=== PATIENT | male | born 1985 | race Caucasian/White ===

== ENCOUNTER 2016-07-29 09:28 | Emergency (ER) | payer MEDICAID ==
[2016-07-29 10:18] LABS: Hematocrit 45 % (42-52); Mean Corpuscular HGB Conc 34 g/dl (31-36); Mean Corpuscular Hemoglobin 31 pg (27-31); Mean Corpuscular Volume 92 fL (80-94); Mean Platelet Volume 9 um3 (7.4-10.4); Red Blood Count 4.87 10^6/ul (4.0-5.4); Red Cell Distribution Width 13 % (10.5-15); White Blood Count 5.3 10^3/ul (3.5-10.8)
--- NOTE | 2016-07-29 10:21 | RAD ---
Indication: Seizures. Single frontal view of the chest performed at 1000 hours was reviewed. No prior study is available for comparison. No mediastinal shift is noted. Heart is of normal size and configuration. Lung gomez appear clear. IMPRESSION: NO ACTIVE CARDIOPULMONARY DISEASE IS NOTED.
[2016-07-29 10:28] LABS: Anion Gap 4 mmol/L (2-11); Blood Urea Nitrogen 12 mg/dL (6-24); CO2 Carbon Dioxide 32 mmol/L (22-32); Chloride 103 mmol/L (101-111); Glucose 69 mg/dL (70-100); Potassium 3.5 mmol/L (3.5-5.0); Sodium 139 mmol/L (133-145)
[2016-07-29 10:29] LABS: ALT 19 U/L (7-52); AST 12 U/L (13-39); Albumin 4.4 g/dL (3.2-5.2); Alkaline Phosphatase 83 U/L (34-104); BUN/Creatinine Ratio 20.7 (8-20); Calcium 9.5 mg/dL (8.6-10.3); EGFR African American 210.2 (>60); EGFR Non-African American 163.4 (>60); Globulin 3.2 g/dL (2-4); Total Protein 7.6 g/dL (6.4-8.9)
[2016-07-29 10:48] LABS: Urine Bilirubin Negative (Negative); Urine Glucose Negative (Negative); Urine Nitrite Negative (Negative)
[2016-07-29 11:13] LABS: Valproic Acid < 13.0 mcg/mL (50-100)
[2016-07-29 12:09] VITALS: BP 106/71
--- NOTE | 2016-07-29 12:31 | ED ---
Rojelio Moore Billy, scribed for Isaiah Novak MD on 07/29/16 at 1023 . Neurological HPI - HPI Summary HPI Summary: Patient is a 30 year-old male with a history of MR and CP coming to [facility] for evaluation of one witnessed seizure today. History obtained from the aide. She states that she witnessed him having a focal seizure of the right shoulder at approximately 0800, which she states is quite uncommon for him. After 5 minutes , he was given 1x dose of clonazepam, without significant improvement. After another 5 minutes, he was given another dose, again without significant improvement. The seizure continued for at least another 20 minutes, at which point the aide called 911 per protocol. Aide reports that the seizure lasted for at least 30 minutes, exact time not measured. She also states that throughout the episode, the patient was alert and acting as usual. 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 Patient takes trileptal and depakote for management of his seizures. - History of Current Complaint Chief Complaint: EDSeizure Stated Complaint: SEIZURE Time Seen by Provider: 07/29/16 09:45 Hx Obtained From: Family/Hearing Aid Repair Technician Hx From Patient Unobtainable Due To: Other - CP, MR Onset/Duration: Sudden Onset Timing: Constant Seizure Severity: Moderate Number of Seizures: 1 Neurological Deficit Location: RUE Aggravating: Unknown Alleviating: Unknown - Allergy/Home Medications Allergies/Adverse Reactions: Allergies Allergy/AdvReac Type Severity Reaction Status Date / Time Topiramate [From Topamax] Allergy Severe GI UPSET, Verified 12/09/15 16:37 WEIGHT LOSS BANDAIDS Allergy Severe Blisters Uncoded 12/09/15 16:37 PMH/Surg Hx/FS Hx/Imm Hx Endocrine/Hematology History: Reports: Hx Thyroid Disease - HYPO GI History: Reports: Other GI Disorders - constipation Neurological History: Reports: Hx Seizures, Other Neuro Impairments/Disorders - Cerebral palsy, mental retardation - Surgical History Surgery Procedure, Year, and Place: HEAD, FEET, 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 Infectious Disease History: No Infectious Disease History: Denies: Traveled Outside the [place] in Last 30 Days - Family History Known Family History: Positive: Unknown Family History: Patient unable to provide due to MR and CP, aide unable to provide history, and also not found on records. - Social History Alcohol Use: None Hx Substance Use: No Substance Use Type: Reports: None Hx Tobacco Use: No Smoking Status (MU): Never Smoked Tobacco Review of Systems Negative: Fever Neurological: Other - MR, CP; seizure today All Other Systems Reviewed And Are Negative: No - Comments Additional Review of Systems Comments: Patient is unable to provide a complete ROS secondary to MR and CP. Physical Exam - Summary Physical Exam Summary: VITAL SIGNS: Reviewed. GENERAL: Patient is a well developed and nourished male who is lying comfortable in the stretcher. Patient is not in any acute respiratory distress. He is nonverbal secondary to MR and CP. HEAD AND FACE: There is a well-healed scar on the left temporal-parietal area. EYES: PERRLA, EOMI x 2. EARS: Hearing grossly intact. MOUTH: Oropharynx within normal limits. NECK: Supple, trachea is midline, no adenopathy, no JVD, no carotid bruit. CHEST: Symmetric, no tenderness at palpation LUNGS: Clear to auscultation bilaterally. No wheezing or crackles. CVS: Regular rate and rhythm, S1 and S2 present, no murmurs or gallops appreciated. ABDOMEN: Soft, non-tender. Bowel sounds are normal. No abdominal abnormal pulsations. EXTREMITIES: Full ROM in all major joints, no edema, no cyanosis or clubbing. 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 NEURO: Alert but not oriented. No acute focal neurological deficits. Patient is nonverbal at baseline. No active seizures. SKIN: Dry and warm Triage Information Reviewed: Yes Vital Signs On Initial Exam: Initial Vitals Temp Pulse Resp BP Pulse Ox 98.6 F 78 14 110/80 98 07/29/16 09:38 07/29/16 09:38 07/29/16 09:38 07/29/16 09:38 07/29/16 09:38 Vital Signs Reviewed: Yes Completion Of Physical Exam Limited Due To: Other - MR, CP - [place] Coma Scale Coma Scale Total: 12 Diagnostics - Vital Signs Vital Signs Temp Pulse Resp BP Pulse Ox 07/29/16 10:03 98 07/29/16 10:00 78 20 99 07/29/16 09:45 106/68 07/29/16 09:38 98.6 F 78 14 110/80 98 - Laboratory Lab Results: Lab Results 04/05/17 04/05/17 04/05/17 Range/Units 10:00 10:00 10:00 WBC 5.3 (3.5-10.8) 10^3/ul RBC 4.87 (4.0-5.4) 10^6/ul Hgb 15.0 (14.0-18.0) g/dl Hct 45 (42-52) % MCV 92 (80-94) fL MCH 31 (27-31) pg MCHC 34 (31-36) g/dl RDW 13 (10.5-15) % Plt Count 231 (150-450) 10^3/ul MPV 9 (7.4-10.4) um3 Neut % (Auto) 59.0 (38-83) % Lymph % (Auto) 29.2 (25-47) % Sawyer % (Auto) 10.4 H (1-9) % Eos % (Auto) 0.5 (0-6) % Baso % (Auto) 0.9 (0-2) % Absolute Neuts (auto) 3.1 (1.5-7.7) 10^3/ul Absolute Lymphs (auto) 1.5 (1.0-4.8) 10^3/ul Absolute Monos (auto) 0.5 (0-0.8) 10^3/ul Absolute Eos (auto) 0 (0-0.6) 10^3/ul Absolute Basos (auto) 0 (0-0.2) 10^3/ul Absolute Nucleated RBC 0 10^3/ul Nucleated RBC % 0.1 INR (Anticoag Therapy) 0.93 (0.89-1.11) Sodium 139 (133-145) mmol/L Potassium 3.5 (3.5-5.0) mmol/L Chloride 103 (101-111) mmol/L Carbon Dioxide 32 (22-32) mmol/L Anion Gap 4 (2-11) mmol/L BUN 12 (6-24) mg/dL Creatinine 0.58 L (0.67-1.17) mg/dL Est GFR ( Amer) 210.2 (>60) Est GFR (Non-Af Amer) 163.4 (>60) BUN/Creatinine Ratio 20.7 H (8-20) Glucose 69 L (70-100) mg/dL Lactic Acid (0.5-2.0) mmol/L Calcium 9.5 (8.6-10.3) mg/dL Magnesium 2.0 (1.9-2.7) mg/dL Total Bilirubin 0.30 (0.2-1.0) mg/dL AST 12 L (13-39) U/L ALT 19 (7-52) U/L Alkaline Phosphatase 83 (34-104) U/L Total Protein 7.6 (6.4-8.9) g/dL Albumin 4.4 (3.2-5.2) g/dL Globulin 3.2 (2-4) g/dL Albumin/Globulin Ratio 1.4 (1-3) Urine Color Urine Appearance Urine pH (5-9) Ur Specific [place] (1.010-1.030) Urine Protein (Negative) Urine Ketones (Negative) Urine Blood (Negative) Urine Nitrate (Negative) Urine Bilirubin (Negative) Urine Urobilinogen (Negative) Ur Leukocyte Esterase (Negative) Urine Glucose (Negative) Urine Ascorbic Acid (Negative) Valproic Acid < 13.0 L (50-100) mcg/mL 07/29/16 07/29/16 Range/Units 10:00 10:34 WBC (3.5-10.8) 10^3/ul RBC (4.0-5.4) 10^6/ul Hgb (14.0-18.0) g/dl Hct (42-52) % MCV (80-94) fL MCH (27-31) pg MCHC (31-36) g/dl RDW (10.5-15) % Plt Count (150-450) 10^3/ul MPV (7.4-10.4) um3 Neut % (Auto) (38-83) % Lymph % (Auto) (25-47) % Sawyer % (Auto) (1-9) % Eos % (Auto) (0-6) % Baso % (Auto) (0-2) % Absolute Neuts (auto) (1.5-7.7) 10^3/ul Absolute Lymphs (auto) (1.0-4.8) 10^3/ul Absolute Monos (auto) (0-0.8) 10^3/ul Absolute Eos (auto) (0-0.6) 10^3/ul Absolute Basos (auto) (0-0.2) 10^3/ul Absolute Nucleated RBC 10^3/ul Nucleated RBC % INR (Anticoag Therapy) (0.89-1.11) Sodium (133-145) mmol/L Potassium (3.5-5.0) mmol/L Chloride (101-111) mmol/L Carbon Dioxide (22-32) mmol/L Anion Gap (2-11) mmol/L BUN (6-24) mg/dL Creatinine (0.67-1.17) mg/dL Est GFR ( Amer) (>60) Est GFR (Non-Af Amer) (>60) BUN/Creatinine Ratio (8-20) Glucose (70-100) mg/dL Lactic Acid 1.2 (0.5-2.0) mmol/L Calcium (8.6-10.3) mg/dL Magnesium (1.9-2.7) mg/dL Total Bilirubin (0.2-1.0) mg/dL AST (13-39) U/L ALT (7-52) U/L Alkaline Phosphatase (34-104) U/L Total Protein (6.4-8.9) g/dL Albumin (3.2-5.2) g/dL Globulin (2-4) g/dL Albumin/Globulin Ratio (1-3) Urine Color Yellow Urine Appearance Cloudy Urine pH 8.0 (5-9) Ur Specific [place] 1.018 (1.010-1.030) Urine Protein Negative (Negative) Urine Ketones Negative (Negative) Urine Blood Negative (Negative) Urine Nitrate Negative (Negative) Urine Bilirubin Negative (Negative) Urine Urobilinogen Negative (Negative) Ur Leukocyte Esterase Negative (Negative) Urine Glucose Negative (Negative) Urine Ascorbic Acid * H (Negative) Valproic Acid (50-100) mcg/mL Result Diagrams: 07/29/16 10:00 07/29/16 10:00 Lab Statement: Any lab studies that have been ordered have been reviewed, and results considered in the medical decision making process. - Radiology CXR Xray Interpretation: No Acute Changes Radiology Interpretation Completed By: Radiologist Course/Dx - Course Assessment/Plan: Patient is a 30 year-old male with a history of MR and CP coming to [facility] for evaluation of one witnessed seizure today. History obtained from the aide. She states that she witnessed him having a focal seizure of the right shoulder at approximately 0800, which she states is quite uncommon for him. After 5 minutes, he was given 1x dose of clonazepam, without significant improvement. After another 5 minutes, he was given another dose, again without significant improvement. The seizure continued for at least another 20 minutes, at which point the aide called 911 per protocol. Aide reports that the seizure lasted for at least 30 minutes, exact time not measured. She also states that throughout the episode, the patient was alert and acting as usual. 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 Patient takes trileptal and depakote for management of his seizures. Bloodwork WNL except for valproic acid which is <13. However, I discussed the case with Dr. Rodgers and he states that he patient is not taking valproic acid. The patient is only taking Trileptal and zonisamide. He requested that if the patient is at his baseline, he can be discharged home to follow up with Dr. Duran. We will also send levels for zonisamide. Since the patient is back to his baseline, hemodynamically stable, he will be discharged home with the caregiver. They were instructed to return to the ED with any additional seizure episodes or any other symptoms. The patients caregiver understands and agrees. - Differential Dx Differential Diagnoses Neuro: Positive: Dysrhythmia, Seizure Disorder, Transient Ischemic Attack - Diagnoses Provider Diagnoses: Seizure disorder - Physician Notifications Discussed Care of Patient With: Dr. Rodgers (neurology) @ 1123: recommends discharge. Discharge - Discharge Plan Condition: Stable Disposition: HOME Patient Education Materials: Recurrent Seizures in Adults (ED) Referrals: Tatiana Bellamy MD [Primary Care Provider] - Deisy Duran MD [Medical Doctor] - The documentation as recorded by the Rojelio bridges Billy accurately reflects the service I personally performed and the decisions made by , Isaiah Novak MD.
== END 2016-07-29 12:08 | disposition home or self-care (01) ==
LOC: ED 09:28
DX: G40.909 Epilepsy, unspecified, not intractable, without status epilepticus (principal)
CPT/HCPCS: 36415; 71010; 80053; 80164; 80203; 81003; 83605; 83735; 85025; 85610; 99283

== ENCOUNTER 2017-04-12 15:51 | Emergency (ER) | payer MEDICAID ==
[2017-04-12 17:49] VITALS: BP 115/77
--- NOTE | 2017-04-12 19:26 | ED ---
Throat Pain/Nasal Congestion - HPI Summary HPI Summary: Pt here w/ URI sx x 1 week. Nasal congestion, cough, appears tired. Lives in with 24 hour care services. Has been receiving guiaifenesin and acetaminophen. Sleeping, breathing and eating well. No reports of vomiting, diarrhea or rash. Still urinating and no fever or chills. Here for evaluation as he could not get in to see PCP this week. H/o sinus infections. - History of Current Complaint Chief Complaint: UCRespiratory Time Seen by Provider: 04/12/17 18:29 Hx Obtained From: Family/Filter Changing Technician - aid from residence - Allergies/Home Medications Allergies/Adverse Reactions: Allergies Allergy/AdvReac Type Severity Reaction Status Date / Time Topiramate [From Topamax] Allergy Severe GI UPSET, Verified 04/12/17 17:50 WEIGHT LOSS BANDAIDS Allergy Severe Blisters Uncoded 04/12/17 17:50 Home Medications: Home Medications Carbamide Peroxide 6.5% OTIC* [DEBROX 6.5% Otic*] 1 drop .SEE ORDER DAILY PRN [History Confirmed 04/12/17] Sodium Phosphate ADULT ENEMA* [Fleet Enema*] 1 enema MA DAILY PRN 04/12/17 [ History Confirmed 04/12/17] Zonisamide(NF) [Zonegran(NF)] 300 mg PO DAILY 04/12/17 [History Confirmed ] clonazePAM TAB(*) [Klonopin TAB(*)] 1 mg PO DAILY PRN 04/12/17 [History Confirmed 04/12/17] PMH/Surg Hx/FS Hx/Imm Hx Previously Healthy: Yes Endocrine/Hematology History: Reports: Hx Thyroid Disease - HYPO Respiratory History: Reports: Other Respiratory Problems/Disorders - sinusitis Denies: Hx Asthma, Hx Chronic Obstructive Pulmonary Disease (COPD), Hx Pneumonia GI History: Reports: Other GI Disorders - constipation Neurological History: Reports: Hx Seizures, Other Neuro Impairments/Disorders - Cerebral palsy, mental retardation - Surgical History Surgery Procedure, Year, and Place: HEAD, FEET, 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 Infectious Disease History: No Infectious Disease History: Denies: Traveled Outside the [place] in Last 30 Days - Family History Known Family History: Positive: Unknown Family History: Patient unable to provide due to MR and CP, aide unable to provide history, and also not found on records. - Social History Occupation: Disabled Lives: Jail Alcohol Use: None Hx Substance Use: No Substance Use Type: Reports: None Hx Tobacco Use: No Smoking Status (MU): Never Smoked Tobacco Review of Systems - ROS Summary Review of Systems Summary: Level 5 caveat - pt has severe developmental delays and is unable to verbalize anything other than making sounds Positive: Fatigue. Negative: Fever, Chills Negative: Drainage, Erythema Positive: Nasal Discharge Positive: Cough. Negative: Shortness Of Breath Negative: Vomiting, Diarrhea, Nausea - eating well Positive: see HPI Negative: Rash Negative: Weakness Psychological: Normal All Other Systems Reviewed And Are Negative: Yes Physical Exam - Summary Physical Exam Summary: Level 5 caveat - pt has baseline contractures and is not cooperative with most of exam Triage Information Reviewed: Yes Vital Signs On Initial Exam: Initial Vitals Temp Pulse Resp BP Pulse Ox 98.8 F 72 18 115/77 90 04/12/17 17:44 04/12/17 17:44 04/12/17 17:44 04/12/17 17:44 04/12/17 17:44 Vital Signs Reviewed: Yes Appearance: Positive: No Pain Distress, Well-Nourished Skin: Positive: Warm, Dry - no rash Eyes: Positive: Conjunctiva Clear. Negative: Conjunctiva Inflammed, Discharge ENT: Positive: Pharynx normal - mucosa moist - pt drooling which aid reports is baseline for him, Nasal drainage - copious nasal drainage. Negative: Muffled voice - assessed when he makes sounds - does not sounds like impedements are present Neck: Positive: No Lymphadenopathy, Other: - pt w/ torticollis to the Left Respiratory/Lung Sounds: Positive: Clear to Auscultation, Breath Sounds Present , Other - coughs once - dry. Negative: Rales, Rhonchi, Stridor, Wheezes Cardiovascular: Positive: Normal, RRR, S1, S2. Negative: Murmur, Rub Abdomen Description: Positive: Nontender, Soft Bowel Sounds: Positive: Present Musculoskeletal: Positive: Other Diagnostics - Vital Signs Vital Signs Temp Pulse Resp BP Pulse Ox 04/12/17 17:44 98.8 F 72 18 115/77 90 - Laboratory Diagnostic Studies Comment: CXR w/ difficulty reading d/t pt's position. Lab Statement: Any lab studies that have been ordered have been reviewed, and results considered in the medical decision making process. EENT Course/Dx - Course Course Of Treatment: Pt presents w/ 1 week of URI sx. No fever, chills, N/V/D, rash or syncope. He appears to have a sinus infection and has had relief with moxifloxacin in the past. A chest XR was ordered to also assess his pulmonary anatomy however was not a full image d/t contractures. It was decided that since moxifloxacin is an excellent antibiotic for both sinus infections and pneumonia, pt may be d/c'd w/ this and close f/u with PCP for worsening of sx. He may also go to ED if danger s/sx present. Aid agrees w/ plan. does not carry moxifloxacin so levaquin was ordered for tonight only. Remaining moxifloxacin was sent to pharmacy. - Diagnoses Provider Diagnoses: Sinusitis Discharge - Discharge Plan Condition: Stable Disposition: HOME Prescriptions: Moxifloxacin HCl 400 mg PO DAILY #9 tab Patient Education Materials: Sinusitis (ED) Forms: *School Release Referrals: Tatiana Bellamy MD [Primary Care Provider] - Additional Instructions: You appear to have a URI prolonged by sinus infection. Continue supportive care and complete antibiotics as directed Follow-up with PCP in 2-3 days - call tomorrow to schedule *If patient develops fever, chills, vomiting, difficulty breathing or swallowing , go to ED
--- NOTE | 2017-04-12 19:27 | RAD ---
INDICATION: Cough COMPARISON: July 29, 2016 TECHNIQUE: PA and lateral views were obtained. This is a very limited examination due to arm positioning with contracture deformities FINDINGS: Bones/Soft Tissues: There are no acute bony findings. Cardiomediastinal: Grossly normal. Lungs: Limited evaluation due to interference from the patient's arms. The right lung is clear. The left lung is inadequately evaluated. Pleura: There are no pleural effusions. Other: None IMPRESSION: VERY LIMITED EXAMINATION DUE TO CONTRACTURE DEFORMITIES. IF THERE IS CONCERN OF A LEFT LUNG PNEUMONITIS, SUGGEST REPEAT IMAGING
[2017-04-12] MEDS ORDERED: Levofloxacin TAB* 500 MG PO ONE (19:34)
== END 2017-04-12 19:55 | disposition home or self-care (01) ==
LOC: UCEAST 15:51
DX: J32.9 Chronic sinusitis, unspecified (principal); G40.909 Epilepsy, unspecified, not intractable, without status epilepticus; G80.9 Cerebral palsy, unspecified; F79 Unspecified intellectual disabilities
CPT/HCPCS: 71010; 99212; G0463

== ENCOUNTER 2017-06-25 11:09 | Emergency (ER) | payer MEDICAID ==
[2017-06-25 12:33] LABS: ABS Basophils 0.1 10^3/ul (0-0.2); ABS Eosinophils 0.1 10^3/ul (0-0.6); ABS Lymphocytes 1.7 10^3/ul (1.0-4.8); ABS Monocytes 0.6 10^3/ul (0-0.8); ABS Neutrophils 3.3 10^3/ul (1.5-7.7); ABS Nucleated RBC 0 10^3/ul; Eosinophil % 1.4 % (0-6); Hematocrit 46 % (42-52); Hemoglobin 15.8 g/dl (14.0-18.0); Lymphocyte % 30.6 % (25-47); Mean Corpuscular HGB Conc 34 g/dl (31-36); Mean Corpuscular Hemoglobin 32 pg (27-31); Mean Corpuscular Volume 92 fL (80-94); Mean Platelet Volume 9 um3 (7.4-10.4); Nucleated Red Blood Cells % 0.1; Platelet Count 237 10^3/ul (150-450); Red Blood Count 4.99 10^6/ul (4.0-5.4); Red Cell Distribution Width 13 % (10.5-15); White Blood Count 5.7 10^3/ul (3.5-10.8)
[2017-06-25 12:44] LABS: Urine Appearance Turbid; Urine Blood Negative (Negative); Urine Color Yellow; Urine Ketones Negative (Negative); Urine Protein Negative (Negative); Urine Specific Gravity 1.016 (1.010-1.030); Urine Urobilinogen Negative (Negative)
[2017-06-25 12:45] LABS: EGFR Non-African American 176.3 (>60)
[2017-06-25 13:18] LABS: INR 0.89 (0.77-1.02)
[2017-06-25 13:35] VITALS: BP 92/76
--- NOTE | 2017-06-25 21:07 | ED ---
Hung Moore Nilda, scribed for Jessie Carrion MD on 06/25/17 at 1203 . Neurological HPI - HPI Summary HPI Summary: This patient is a 31 year old M resident of [facility] accompanied by radiology ct technologist (Priscilla) with a chief complaint of focal seizure that began at 0955 this morning and lasted between 30-60 mins. Inker gave klonopin according to protocol and seizure continued beyond the protocol, so instructions are to call 911 if the seizure doesn't resolve. Pt's radiology ct technologist states seizure resolved upon arrival of the ambulance. She notes that during patient's usual seizure, pt is still awake, responsive, and the only abnormality is that his right arm jerks. Symptoms aggravated by nothing and alleviated by spontaneous resolution. Inker denies fever, rhinorrhea, loss of appetite, and recent illness. 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 Inker states Dr. Duran is pt's neurologist. Pt is on zonisamide for seizures. LVL 5 Caveat: HPI and PE are limited due to pt's history of MR and CP. - History of Current Complaint Chief Complaint: EDSeizure Stated Complaint: SEIZURES Time Seen by Provider: 06/25/17 11:32 Hx Obtained From: Family/Inker - Inker from [facility] (Priscilla ), Medical Records - pt's notebook and [facility] records Hx From Patient Unobtainable Due To: Other - LVL 5 Caveat: HPI limited due to Hx CP and MR. Onset/Duration: Sudden Onset, Started hours ago, Resolved Timing: Constant Onset Severity: Mild Current Severity: None Seizure Severity: Mild Number of Seizures: 1 Neurological Deficit Location: RUE Pain Intensity: 0 Pain Scale Used: 0-10 Numeric Character: Other: - focal seizure RUE Seizure Character: Partial (Specify) - RUE, focal Aggravating: Nothing Alleviating: Spontanious Resolution Associated Signs and Symptoms: Positive: Seizure. Negative: Fever, Recent Illness, Change in Diet Related Hx: Trauma - Child Head Trauma, Seizure - Allergy/Home Medications Allergies/Adverse Reactions: Allergies Allergy/AdvReac Type Severity Reaction Status Date / Time MS Topiramate [From Topamax] Allergy Severe GI UPSET, Verified 04/12/17 17:50 WEIGHT LOSS BANDAIDS Allergy Severe Blisters Uncoded 04/12/17 17:50 PMH/Surg Hx/FS Hx/Imm Hx Endocrine/Hematology History: Reports: Hx Thyroid Disease - HYPO Respiratory History: Reports: Other Respiratory Problems/Disorders - sinusitis Denies: Hx Asthma, Hx Chronic Obstructive Pulmonary Disease (COPD), Hx Pneumonia GI History: Reports: Other GI Disorders - constipation Musculoskeletal History: Reports: Other Musculoskeletal History - Osteoporosis; Hemiparesis of RUE. 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 Infectious Disease History: No Infectious Disease History: Denies: Traveled Outside the [place] in Last 30 Days - Family History Known Family History: Positive: Unknown - pt with MR,CP, resident of retirement , no family to provide history Family History: UNKNOWN: as above, and aide also not able to provide family history, and no family history noted in records, pt's book or [facility] records. LEVEL 5 caveat - Social History Occupation: Disabled - MR Lives: Residential - [address] Alcohol Use: None Hx Substance Use: No Substance Use Type: Reports: None Hx Tobacco Use: No Smoking Status (MU): Never Smoked Tobacco Review of Systems Negative: Fever Negative: Nasal Discharge Positive: Other - negative loss of appetite Neurological: Other - seizure (resolved), MR , CP Psychological: Other - back to his baseline per aide who knows him, sleepy after klonopin All Other Systems Reviewed And Are Negative: No - Comments Additional Review of Systems Comments: LVL 5 Caveat: ROS is limited due to pt's MR and CP. Physical Exam - Summary Physical Exam Summary: Appearance: well-appearing, no indicators for pain distress, Well-nourished. No seizure activity noted. Skin: Warm, color reflects adequate perfusion Head: Normal Head/Face inspection, no sign of trauma, no tongue biting Eyes: Conjunctiva clear ENT: Normal inspection Neck: Supple, no nodes, no JVD. Respiratory: Lungs clear, Normal breath sounds, no respiratory distress Cardio: RRR, No murmur, pulses normal, brisk capillary refill Abdomen: soft, nontender Bowel sounds: present Musculoskeletal: Strength Intact. No calf tenderness. No edema. Clubbed feet. Flexion contracture of RUE with right hemiparesis. Neuro: Alert, facial symmetry. Prefers eyes closed. Opens eyes to voice. Flexion contracture of RUE with right hemiparesis. No new focal deficit apparent. No seizure activity noted. Psychological: Calm, Resting. Triage Information Reviewed: Yes Vital Signs On Initial Exam: Initial Vitals Temp Pulse Resp BP Pulse Ox 97.3 F 62 18 108/89 98 06/25/17 11:18 06/25/17 11:18 06/25/17 11:18 06/25/17 11:18 06/25/17 11:18 Vital Signs Reviewed: Yes Completion Of Physical Exam Limited Due To: Level 5 - PE is limited due to Hx of MR and CP. - [place] Coma Scale Best Eye Response: 3 - To Speech Best Motor Response: 5 - Purposeful Movement Best Verbal Response: 5 - Oriented Coma Scale Total: 13 Diagnostics - Vital Signs Vital Signs Temp Pulse Resp BP Pulse Ox 06/25/17 11:36 99 06/25/17 11:18 97.3 F 62 18 108/89 98 - Laboratory Result Diagrams: 06/25/17 12:16 06/25/17 12:16 Lab Statement: Any lab studies that have been ordered have been reviewed, and results considered in the medical decision making process. Re-Evaluation - Re-Evaluation First Eval Re-Evaluation Time: 12:53 Change: Unchanged Comment: Pt is resting and not seizing. Course/Dx - Course Assessment/Plan: LVL 5 Caveat: HPI and PE are limited due to pt's history of MR and CP. 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 Inker followed protocol by giving klonopin and then calling 911 when focal seizure continued despite klonopin. Pt medications reviewed this visit. High blood pressure noted. Allergies Noted. [1252] Dr. Duran (Neuro) advised that if labs and urine are within normal limits then pt can be D/C and she will follow up on zonisamide level and see pt in the office. Upon re-evaluation pt is resting and is not seizing. Pt is stable and will be D/C with a Dx of focal seizure, CP , MR, and Traumatic Brain injury, and will follow up with Dr. Duran. Inker understands and is agreeable with this plan. - Differential Dx Differential Diagnoses Neuro: Positive: Metabolic Abnormality, Seizure Disorder , Other - infection - Diagnoses Provider Diagnoses: Mental retardation, Focal seizure, Traumatic brain injury, Cerebral palsy - Physician Notifications Discussed Care Of Patient With: Deisy Duran - Neuro Time Discussed With Above Provider: 12:52 Instructed by Provider To: Other - recommends D/C pt if everything is ok. Discharge - Discharge Plan Condition: Stable Disposition: HOME Patient Education Materials: Cerebral Palsy (DC), Recurrent Seizures in Adults (ED), Seizures After Traumatic Brain Injury (ED) Referrals: Tatiana Bellamy MD [Primary Care Provider] - 2 Days Deisy Duran MD [Medical Doctor] - As Soon As Possible Additional Instructions: RETURN TO THE EMERGENCY DEPARTMENT FOR CHANGING OR WORSENING SYMPTOMS. The documentation as recorded by the Hung bridges Nilda accurately reflects the service I personally performed and the decisions made by , Jessie Carrion MD.
== END 2017-06-25 13:34 | disposition home or self-care (01) ==
LOC: ED 11:09
DX: G40.109 Localization-related (focal) (partial) symptomatic epilepsy and epileptic syndromes with simple partial seizures, not intractable, without status epilepticus (principal); G80.9 Cerebral palsy, unspecified; F79 Unspecified intellectual disabilities; E03.9 Hypothyroidism, unspecified; M81.0 Age-related osteoporosis without current pathological fracture; S06.9X0S Unspecified intracranial injury without loss of consciousness, sequela
CPT/HCPCS: 36415; 80053; 80203; 80307; 80320; 81003; 82550; 83605; 83735; 84443; 84484; 85025; 85610; 85730; 99282; G0480

== ENCOUNTER 2017-10-21 10:35 | Observation (INO) | payer MEDICAID ==
[2017-10-21 11:30] LABS: ABS Basophils 0.1 10^3/ul (0-0.2); ABS Eosinophils 0.1 10^3/ul (0-0.6); ABS Lymphocytes 1.4 10^3/ul (1.0-4.8); ABS Monocytes 0.7 10^3/ul (0-0.8); ABS Neutrophils 3.9 10^3/ul (1.5-7.7); ABS Nucleated RBC 0 10^3/ul; Hematocrit 45 % (42-52); Hemoglobin 15.5 g/dl (14.0-18.0); Lymphocyte % 22.6 % (25-47); Mean Corpuscular HGB Conc 34 g/dl (31-36); Mean Corpuscular Hemoglobin 32 pg (27-31); Mean Corpuscular Volume 93 fL (80-94); Mean Platelet Volume 7.7 um3 (7.4-10.4); Nucleated Red Blood Cells % 0.1; Platelet Count 302 10^3/ul (150-450); Red Blood Count 4.85 10^6/ul (4.00-5.40); Red Cell Distribution Width 13 % (10.5-15); White Blood Count 6.2 10^3/ul (3.5-10.8)
[2017-10-21 11:39] LABS: EGFR Non-African American 164.6 (>60)
--- NOTE | 2017-10-21 14:07 | CONSULT ---
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 He presented with a prolonged seizure, > 30 minutes which qualifies for status epilepticus that seems to have responded to Klonopin. The patient is not back to baseline according to Aviva, caregiver at bedside, and would benefit from admission to the observation unit for 24 hours. During this time we will obtain a routine EEG to rule out non-convulsive status epilepticus and start him on levetiracetam 500 mg IV x 1 now. If his levels come back within therapeutic range, then we will continue the levetiracetam 500 mg PO twice daily. If the levels are low, then we will adjust his medications and discontinue the levetiracetam. Please obtain a UA. Please order an EEG. Discussed case with Dr. Whalen. He will discuss with the hospitalist team. Consult note will be dictated.
[2017-10-21] MEDS ORDERED: Al Hydrox/Mg Hydrox/Simet LIQ* 30 ML UDC PO PRN (14:40)
[2017-10-21] MEDS ORDERED: Acetaminophen TAB* 325 MG PO PRN (14:40)
[2017-10-21] MEDS ORDERED: Ondansetron INJ* 2 MG/ML VIAL IV PRN (14:40)
[2017-10-21] MEDS ORDERED: Albuterol 2.5 MG/3 ML NEB.SOL* (0.083%) INH PRN (14:40)
[2017-10-21] MEDS ORDERED: Magnesium Hydroxide LIQ* 30 ML UDC PO PRN (14:40)
[2017-10-21] MEDS ORDERED: guaiFENesin LIQ* 100 MG/5 ML UDC PO PRN (14:44)
[2017-10-21] MEDS ORDERED: Carbamide Peroxide 6.5% OTIC* 15 ML BTL BOTH EARS PRN (14:44)
[2017-10-21] MEDS ORDERED: Bacitracin OINTMENT* 0.5% 0.5 oz TUBE TOPICAL PRN (14:44)
[2017-10-21] MEDS ORDERED: Bisacodyl SUPP* 10 MG SUPP PR PRN (14:44)
[2017-10-21] MEDS ORDERED: Acyclovir* 400 MG TAB PO PRN (14:44)
[2017-10-21] MEDS ORDERED: Ibuprofen TAB* 200 MG PO PRN (14:44)
[2017-10-21] MEDS ORDERED: clonazePAM TAB(*) 1 MG PO PRN (14:44)
[2017-10-21] MEDS ORDERED: Sodium Phosphate ADULT ENEMA* 118 ml bottle PR PRN (14:47)
[2017-10-21] MEDS ORDERED: Temazepam CAP* 15 MG PO PRN (14:47)
[2017-10-21] MEDS ORDERED: [UNRECOGNIZED DRUG - OTHER] TOPICAL PRN (14:47)
--- NOTE | 2017-10-21 15:05 | ED ---
Laurence Moore Emily, scribed for Alexis Whalenuel on 10/21/17 at 1112 . Neurological HPI - HPI Summary HPI Summary: This patient is a 32 year old M BIBA to [facility] with a chief complaint of R arm tremors that began at 1000 today and resolved at 1030. The patient rates the pain 0/10 in severity. Symptoms aggravated by nothing. Symptoms alleviated by nothing. Per EMS, patient was experiencing a seizure like episode. - History of Current Complaint Chief Complaint: EDSeizure Stated Complaint: SEIZURE LIKE ACTIVITY Time Seen by Provider: 10/21/17 10:54 Hx Obtained From: Patient Onset/Duration: Sudden Onset, Started minutes ago, Resolved Timing: Intermittent Episodes Lasting: - 30 Minutes Onset Severity: Mild Current Severity: Mild Seizure Severity: Mild Number of Seizures: 1 Pain Intensity: 0 Pain Scale Used: 0-10 Numeric Aggravating: Nothing Alleviating: Nothing - Allergy/Home Medications Allergies/Adverse Reactions: Allergies Allergy/AdvReac Type Severity Reaction Status Date / Time topiramate [From Topamax] Allergy GI Upset Verified 10/21/17 11:14 BANDAIDS Allergy Severe Blisters Uncoded 10/21/17 10:47 Home Medications: Home Medications Acetaminophen TAB* [Tylenol TAB*] 650 mg PO Q4H PRN MDD 12 tabs 10/21/17 [ History Confirmed 10/21/17] Acyclovir* [Zovirax 400 MG TAB*] 400 mg PO TID PRN 10/21/17 [History Confirmed 10/21/17] Al Hydrox/Mg Hydrox/Simet LIQ* [Maalox Plus*] 2 teasp PO Q4H PRN MDD 8 tsp 10/21 [History Confirmed 10/21/17] Bacitracin OINT* 1 applic TOPICAL BID PRN 10/21/17 [History Confirmed 10/21/17] Bisacodyl SUPP* [Dulcolax Supp*] 10 mg TX DAILY PRN 10/21/17 [History Confirmed 10/21/17] Calcium Carbonate/Vitamin D3 [Oyster Shell Calcium Tablet] 1 each PO QAM [History Confirmed 10/21/17] Carbamide Peroxide 6.5% OTIC* [DEBROX 6.5% Otic*] 2 drop BOTH EARS BEDTIME PRN 10/21/17 [History Confirmed 10/21/17] Chlorhexidine MOUTHWASH 0.12%* [Peridex Mouth Wash 0.12%*] 1 teasp SWISH SPIT BID 10/21/17 [History Confirmed 10/21/17] Cholecalciferol TAB* [Vitamin D TAB*] 1,000 unit PO QAM 10/21/17 [History Confirmed 10/21/17] Clonazepam ODT (NF) [Clonazepam Odt] 1 mg PO TID PRN MDD 3mg 10/21/17 [History Confirmed 10/21/17] Docusate CAP* [Colace Cap*] 100 mg PO DAILY 10/21/17 [History Confirmed 10/21/17 ] Ibuprofen TAB* [Advil TAB*] 200 mg PO Q6H PRN MDD 12 tabs 10/21/17 [History Confirmed 10/21/17] L.acidoph,Paracasei, B.lactis [Probiotic] 1 each PO DAILY 10/21/17 [History Confirmed 10/21/17] Magnesium Hydroxide LIQ* [Milk of Magnesia LIQ*] 30 ml PO DAILY PRN 10/21/17 [ History Confirmed 10/21/17] OXcarbazepine TAB(*) [Trileptal 300 mg TAB(*)] 900 mg PO BID 10/21/17 [History Confirmed 10/21/17] Polyethylene Glycol 3350* [Miralax*] 17 gm PO TID 10/21/17 [History Confirmed ] Sodium Phosphate ADULT ENEMA* [Fleet Enema*] 1 enema TX DAILY PRN 10/21/17 [ History Confirmed 10/21/17] Temazepam CAP* [Restoril CAP*] 30 mg PO DAILY PRN 10/21/17 [History Confirmed ] Vitamins A & D OINT* [Vitamin A & D Oint*] 1 applic TOPICAL BID PRN 10/21/17 [ History Confirmed 10/21/17] Zinc Oxide [Desitin] 13 % TOPICAL TID PRN 10/21/17 [History Confirmed 10/21/17] Zonisamide(NF) [Zonegran(NF)] 300 mg PO QAM 10/21/17 [History Confirmed 10/21/17 ] Zonisamide(NF) [Zonegran(NF)] 400 mg PO QPM 10/21/17 [History Confirmed 10/21/17 ] guaiFENesin LIQ* [Robitussin*] 2 teasp PO Q4H PRN MDD 12 tsp 10/21/17 [History Confirmed 10/21/17] PMH/Surg Hx/FS Hx/Imm Hx Previously Healthy: No Endocrine/Hematology History: Reports: Hx Thyroid Disease - HYPO Respiratory History: Reports: Other Respiratory Problems/Disorders - sinusitis Denies: Hx Asthma, Hx Chronic Obstructive Pulmonary Disease (COPD), Hx Pneumonia GI History: Reports: Other GI Disorders - constipation Musculoskeletal History: Reports: Other Musculoskeletal History - Osteoporosis; Hemiparesis of RUE. 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 Infectious Disease History: Unable to Obtain/Confirm Infectious Disease History: Denies: Traveled Outside the [place] in Last 30 Days - Family History Known Family History: Positive: Unknown - pt with MR,CP, [facility] , no family to provide history Family History: UNKNOWN: as above, and aide also not able to provide family history, and no family history noted in records, pt's book or [facility] records. LEVEL 5 caveat - Social History Occupation: Disabled Lives: Assisted Living Alcohol Use: None Hx Substance Use: No Substance Use Type: Reports: None Hx Tobacco Use: No Smoking Status (MU): Never Smoked Tobacco Review of Systems Negative: Fever Neurological: Other - Positive R arm tremors and seizure like activity All Other Systems Reviewed And Are Negative: Yes Physical Exam - Summary Physical Exam Summary: Appearance: Well appearing, no pain distress Skin: warm, dry, reflects adequate perfusion Head/face: normal Eyes: EOMI, ALECIA ENT: normal Neck: supple, non-tender Respiratory: CTA, breath sounds present Cardiovascular: RRR, pulses symmetrical Abdomen: non-tender, soft Bowel: present Musculoskeletal: all extremities contracted Neuro: confused, alert Triage Information Reviewed: Yes Vital Signs On Initial Exam: Initial Vitals Temp Pulse Resp BP Pulse Ox 96.9 F 78 16 112/76 94 10/21/17 10:39 10/21/17 10:39 10/21/17 10:39 10/21/17 10:39 10/21/17 10:39 Vital Signs Reviewed: Yes Diagnostics - Vital Signs Vital Signs Temp Pulse Resp BP Pulse Ox 10/21/17 10:44 99 97 10/21/17 10:40 101 112/76 99 10/21/17 10:39 96.9 F 78 16 112/76 94 - Laboratory Lab Results: Lab Results 10/21/17 10/21/17 Range/Units 11:13 11:13 WBC 6.2 (3.5-10.8) 10^3/ul RBC 4.85 (4.00-5.40) 10^6/ul Hgb 15.5 (14.0-18.0) g/dl Hct 45 (42-52) % MCV 93 (80-94) fL MCH 32 H (27-31) pg MCHC 34 (31-36) g/dl RDW 13 (10.5-15) % Plt Count 302 (150-450) 10^3/ul MPV 7.7 (7.4-10.4) um3 Neut % (Auto) 63.9 (38-83) % Lymph % (Auto) 22.6 L (25-47) % Robeson % (Auto) 11.5 H (0-7) % Eos % (Auto) 1.0 (0-6) % Baso % (Auto) 1.0 (0-2) % Absolute Neuts (auto) 3.9 (1.5-7.7) 10^3/ul Absolute Lymphs (auto) 1.4 (1.0-4.8) 10^3/ul Absolute Monos (auto) 0.7 (0-0.8) 10^3/ul Absolute Eos (auto) 0.1 (0-0.6) 10^3/ul Absolute Basos (auto) 0.1 (0-0.2) 10^3/ul Absolute Nucleated RBC 0 10^3/ul Nucleated RBC % 0.1 Sodium 141 (135-145) mmol/L Potassium 3.9 (3.5-5.0) mmol/L Chloride 105 (101-111) mmol/L Carbon Dioxide 28 (22-32) mmol/L Anion Gap 8 (2-11) mmol/L BUN 11 (6-24) mg/dL Creatinine 0.57 L (0.67-1.17) mg/dL Est GFR ( Amer) 199.2 (>60) Est GFR (Non-Af Amer) 164.6 (>60) BUN/Creatinine Ratio 19.3 (8-20) Glucose 79 (70-100) mg/dL Calcium 9.6 (8.6-10.3) mg/dL Magnesium 2.0 (1.9-2.7) mg/dL Total Bilirubin 0.30 (0.2-1.0) mg/dL AST 11 L (13-39) U/L ALT 15 (7-52) U/L Alkaline Phosphatase 87 (34-104) U/L Total Protein 7.2 (6.4-8.9) g/dL Albumin 4.3 (3.2-5.2) g/dL Globulin 2.9 (2-4) g/dL Albumin/Globulin Ratio 1.5 (1-3) Result Diagrams: 10/21/17 11:13 10/21/17 11:13 Lab Statement: Any lab studies that have been ordered have been reviewed, and results considered in the medical decision making process. Course/Dx - Course Course Of Treatment: This patient is a 32 year old M BIBA to [facility] with a chief complaint of R arm tremors that began at 1000 today and resolved at 1030. Blood work obtained. Consult with Dr. Zavala (neurology) at 1400. He recommends pt be admitted for observation due to the pt not being at his baseline. Consult with Dr. Hernandez (hospitalist) at 1415. He agrees to admit pt for further evaluation. The patient is agreeable with this plan. - Differential Dx Differential Diagnoses Neuro: Positive: Seizure Disorder - Diagnoses Provider Diagnoses: Status epilepticus, Recurrent seizures - Physician Notifications Discussed Care Of Patient With: Kristal Zavala Time Discussed With Above Provider: 14:00 Instructed by Provider To: Other - Consult with Dr. Zavala (neurology) at 1400. He recommends pt be admitted for observation. Consult with Dr. Hernandez ( hospitalist) at 1415. He agrees to admit pt for further evaluation. Discharge - Sign-Out/Discharge Documenting (check all that apply): Discharge/Admit/Transfer - Admit - Discharge Plan Condition: Stable Disposition: ADMITTED TO [facility] - Billing Disposition and Condition Condition: STABLE Disposition: Admitted to [facility] The documentation as recorded by the Laurence bridges Emily accurately reflects the service I personally performed and the decisions made by , Wilfred Whalen.
[2017-10-21] MEDS: levETIRAcetam 500 MG IVPREMIX* 500 MG/100 ML BAG IV SCH (16:55)
[2017-10-21] MEDS ORDERED: NS 0.9% 500 ML* @ Wide Open(Bolus) 500ml IV ONE (17:00)
[2017-10-21] MEDS ORDERED: Zonisamide(NF) 100 MG CAP PO SCH (18:00)
--- NOTE | 2017-10-21 18:58 | HP ---
AMENDED REPORT NOW INCLUDES COSIGNER DESIGNATION - ESIGNED BEFORE ADJUSTMENT ADMISSION HISTORY AND PHYSICAL: DATE OF ADMISSION: 10/21/17 PATIENT OF ATTENDING HOSPITALIST: Dr. Behzad Hernandez.* (DICTATED BY REED MARCH) CONSULTING PHYSICIAN: Neurological consultation done by Dr. Kristal Zavala. CHIEF COMPLAINT: Seizure activity. HISTORY OF PRESENT ILLNESS: Ector Alvares is a 32-year-old gentleman with a known history of focal seizure activity and severe intellectual disability, for which he has been a resident of [facility]. He has been having periods of medically intractable seizures and spastic quadriplegia, who was brought from his residence to the emergency room earlier today with complaints of greater than 30 minutes seizure activity involving the right arm. According to the staff and records, the patient has been nonverbal and most of the history obtained looking at the records. He has been having some focal seizures on and off, usually last few minutes, giving clonazepam most of the time takes care of it. He has a standing order from Dr. Duran to repeat clonazepam order every 5 minutes during seizure activity if he is able to swallow; however, if the seizure is prolonged for greater than 20 minutes and not relieved with 3 doses of clonazepam, it was advised for him to come to the emergency room for evaluation. This morning, Ector had a seizure activity, focal in nature, involving the right arm that lasted for greater than 30 minutes , for which he was brought to the emergency room for evaluation. The patient was seen by Dr. Zavala for consultation and EEG as well as medication level were ordered and results are pending at this time. The caregiver at the room with Ector denied any stool or urine incontinence. He does have longstanding history of fecal and urinary incontinence, for which he wears pads. No apparent cough or shortness of breath lately. He has not been running any fever or chills. The patient was evaluated in the emergency room and apparently his seizure activity had stopped. Again, laboratory workup and EEG are pending at the time of admission. Given his longstanding history of seizure with known focal episodes as well as his severe intellectual disability, we were asked to see the patient and recommendations were made by the neurologist to observe the patient for 24 hours. PAST MEDICAL HISTORY: As mentioned above, significant for: 1. Medically intractable epilepsy. 2. Severe intellectual disability. 3. Spastic quadriplegia. 4. Hypothyroidism. 5. Chronic constipation. PAST SURGICAL HISTORY: None seen on the record. CURRENT MEDICATIONS: His medications at his residence include: 1. Acetaminophen 650 mg p.o. q.4 hours as needed for pain or fever. 2. Acyclovir 400 mg p.o. t.i.d. 3. Maalox 2 teaspoons p.o. q.4 hours as needed for indigestion. 4. Bacitracin ointment 1 application topically twice daily to affected area. 5. Dulcolax 10 mg per rectum once daily as needed for constipation. 6. Calcium carbonate and vitamin D 1 tablet daily. 7. Carbamide peroxide otic solution 2 drops both ears at bedtime p.r.n. for cerumen impaction. 8. Chlorhexidine mouthwash 1 teaspoon swish and spit b.i.d. 9. Clonazepam 1 mg p.o. t.i.d. as needed for seizure activity. 10. Colace 100 mg p.o. daily. 11. Robitussin 2 teaspoons p.o. q.4 hours as needed for cough. 12. Ibuprofen 200 mg p.o. q.6 hours for fever or pain. 13. Probiotic 1 tablet p.o. daily. 14. Milk of Magnesia 2 tablespoons p.o. daily as needed for constipation. 15. Trileptal 900 mg p.o. b.i.d. 16. MiraLAX 17 g p.o. t.i.d. 17. Restoril 30 mg p.o. daily. 18. Vitamin A and D ointment 1 application topically as prescribed. 19. Zinc oxide cream as prescribed. ALLERGIES: Include TOPIRAMATE and BAND-AIDS. FAMILY HISTORY: Noncontributory. SOCIAL HISTORY: The patient resides in a long-term in [facility]. He does not have any healthcare proxy. He does not have any family around. His healthcare proxy is basically run by the committee. He is a full code. REVIEW OF SYSTEMS: Not obtainable since the patient is nonverbal, however from obtaining records and discussing the case with the caregiver it appears to be mostly seizure activity upon presentation with related history of present illness, otherwise review of systems is essentially negative. PHYSICAL EXAMINATION GENERAL: He is drowsy, lying in the bed in position with visible contractures of both upper and lower extremities. He appears comfortable and in NAD. VITAL SIGNS: Revealed temperature of 96.9, heart rate of 83, blood pressure 102 /79, respirations of 16 with O2 sat of 97% on room air. HEENT: Head is normocephalic. Sclerae are anicteric. PERRLA. EOMs intact. NECK: Supple. Trachea midline. No cervical adenopathy noted. LUNGS: Clear to auscultation bilaterally. HEART: Regular rate and rhythm. No rubs, murmurs or gallops. ABDOMEN: Soft, nontender and nondistended. EXTREMITIES: Without cyanosis, clubbing or edema. NEUROLOGIC: Exam deferred to neurologist during the consultation. RECTAL: Exam deferred at this time. LABORATORY WORKUP: Again, laboratory workup for seizure medication level is pending at this time. His CBC came back with white count of 6000, hemoglobin of 15, hematocrit of 45 and platelets of 302. His chemistry panel essentially unremarkable and urinalysis is pending at this time. IMPRESSION: A 32-year-old male with severe intellectual disability and longstanding history of focal seizure activity who was brought to the emergency room from his long-term after a witnessed greater than 30 minutes focal seizure involving the right upper extremity that was intractable to medication. ASSESSMENT AND PLAN: 1. Focal seizure activity. The patient appears to be stable at this time. Neurological consultation was done and Dr. Zavala recommended getting an EEG as well as urinalysis and to admit for observation with seizure precautions overnight. We will obtain oxcarbazepine and zonisamide levels to check medication effectiveness and in the meantime, the patient will be covered with levetiracetam 500 mg IV q.12 hours for the time being as well as Ativan as needed for intermittent focal activities. Again, he appears to be stable at this time and no evidence of status epilepticus. 2. Severe intellectual disability. Supportive care as well as communication with long-term nursing staff will be accomplished regarding his dietary habits , changing of pads due to long-term fecal and urine incontinence as well as other personal needs. 3. Hypothyroidism. We will continue his levothyroxine. 4. Chronic constipation. We will continue all his bowel regimen from the long-term including MiraLAX, Dulcolax as needed, as well as stool softener on a daily basis. 5. DVT prophylaxis. The patient is a low risk. We will use SCDs for the time being. 6. Code status. He is a full code. 7. Disposition. Admit for observation overnight and seizure precautions. Await EEG findings and neurological recommendation. Likely to be discharged home tomorrow if no recurrent seizure activity noted. TIME SPENT: I spent approximately 55 minutes admitting this patient with greater than 50% spent on taking history and performing physical exam. I discussed the case with Dr. Hernandez, my attending, who agreed to plan of care. REED MARCH [id number]/[facility] #: [id number] MICHAEL
[2017-10-21] MEDS: OXcarbazepine TAB(*) 300 MG PO SCH (21:03)
[2017-10-21] MEDS: ZONISAMIDE 50 MG PO SCH (21:03)
--- NOTE | 2017-10-21 21:18 | CONS ---
NEUROLOGY CONSULTATION: DATE OF CONSULT: 10/21/17 PRIMARY PROVIDER: Dr. Wilfred Whalen. REASON FOR CONSULT: Neurology has been consulted to evaluate the patient for seizures. SOURCE OF INFORMATION: The history was obtained from the patient's caregiver, Aviva, who was at bedside, who has been caring for the patient for 3 years. The patient cannot provide any medical history as he appears to be in a postictal period. HISTORY OF PRESENT ILLNESS: Mr. Ector Alvares is a 32-year-old young man with severe developmental delay due to a traumatic brain injury when he was 1 years of age. Since then, has had refractory localization-related epilepsy, who presented to [facility] ED due to a prolonged motor seizure. The patient was in normal state of health this morning, but woke up and during evaluation after having breakfast, the patient developed abnormal tonic-clonic like movements of the right upper extremity. This lasted for more than 30-35 minutes. He received a Klonopin at 9:10, 9:20, and 9:30 a.m. The abnormal movement abated en route to the hospital. Following the episode, the patient was drowsy and not as responsive. He did receive 3 mg of Klonopin. At one point between 10 a.m. to 12 p.m., the patient was slightly awake and playing with a toy. However, when I evaluated the patient, Aviva, stated that he was not back to himself. He typically would track and cooperate with the examiner, but right now the patient is just staring off with nonpurposeful movements. He takes oxcarbazepine 900 mg p.o. twice daily and recently increased his zonisamide to 400 mg twice daily. The change in zonisamide was done in June 2017 when he had his last ER visit due to seizures. Prior to today's episode, the patient's last seizure was 1 month ago. Previous AED therapy, Topamax, which was discontinued due to GI upset and weight loss and Depakote was affecting his ambulation. He had an EEG on that showed multifocal discharge, both hemispheres, abundant in the left hemisphere. This was consistent with multifocal areas of increased epileptogenic potential on background of moderate diffuse encephalopathy. PAST MEDICAL HISTORY: TBI, developmental delay, localization-related epilepsy, he had brain surgery done as a child with scarring in the left cranial region. MEDICATIONS: 1. Acetaminophen. 2. Acyclovir. 3. Vitamin D. 4. Clonazepam 1 mg p.o. t.i.d. p.r.n. for seizures. 5. Ibuprofen 200 mg p.o. every 6 hours for pain. 6. Magnesium hydroxide. 7. Ondansetron 4 mg IV every 4 hours p.r.n. for nausea and vomiting. 8. Oxcarbazepine 900 mg p.o. twice daily. 9. Zonisamide 400 mg p.o. at night and although it stated he had 300 mg p.o. in the morning, but the patient is currently taking zonisamide 400 mg twice daily. I reviewed this and confirmed it from the prison's medication [facility]. ALLERGIES: TOPIRAMATE and BAND-AIDS. FAMILY HISTORY: Unknown. The patient resides in a prison. The patient was unable to provide me the family history. SOCIAL HISTORY: The patient is disabled. There is no report of tobacco or alcohol use. REVIEW OF SYSTEMS: Unable to be obtained due to the patient's current mental status. PHYSICAL EXAM: Vitals: Temperature of 96.9, pulse rate of 98, respiratory rate of 16, oxygen saturation 95%, blood pressure of 108/86. General: Ill- appearing young man in no acute distress. Well nourished, well developed. He is resting comfortably. He is staring at examiner, but does not track. Head is traumatic with a chronic surgical incision and scar on the left that is closed and healed well. Eyes: Conjunctivae/corneas are clear with no scleral icterus. Neck is supple without any nuchal rigidity. Lungs are clear to auscultation bilaterally, nonlabored breathing. Cardiovascular: Regular rhythm , normal S1, S2 with radial pulses palpable. Extremities: No hammertoes or high arches. No cyanosis. Skin: No skin lesions or laceration. Psych: Unable to cooperate due to baseline cognitive disability. Neurological Examination: Mental Status: The patient is awake, but he is nonverbal at baseline. Cranial nerves: Normal confrontation testing on the left. Pupils are mid range and reactive to light and are dilated to 5 mm and constrict to 4 mm with light. He has no facial droop. Tongue seems symmetrical and midline when passively opening the jaw. Motor: Right hemiparesis with contracture of the right upper and right lower extremities. He has slight increase in tone in the left upper extremity as well. He withdrew to noxious stimuli by flexing the elbows and knees bilaterally, left greater than right. Reflexes right 2+ and left 1+ and 0 at the ankle on the right and 1 on the left. The ankles are contracted and difficult to obtain a reflex response. Plantar extensor response on the right, flexor on the left. Sensation, coordination, and gait were unable to performed as the patient does not respond or cooperate with the examiner. DIAGNOSTIC STUDIES/LAB DATA: WBC 6.2, hemoglobin 15.5, hematocrit 45, platelet count of 302. Sodium of 141, potassium of 3.9, chloride of 105, creatinine of 0.57. Intracranial images were not performed. ASSESSMENT: Mr. Ector Alvares is a 32-year-old man with history of severe developmental delay, traumatic brain injury since 1 years of age, and refractory - localization related epilepsy with purely focal motor seizures involving the right upper extremity, who presented with a prolonged motor seizure period with questionable secondary generalization without any evidence of generalized convulsions. I am worried that the patient did have a complex partial event since he is currently in a prolonged postictal period according to the patient' s caregiver, Aviva. However, he may currently be in a state of encephalopathy related Klonopin. On average, the patient can have 1-3 seizures typically lasting less than 20 minutes, but he does have a seizure-free interval for 1-2 months. He is compliant to his medication. Please note that the zonisamide dose that he is taking is actually 400 mg twice a day and not 300/400 mg a day. He is also taking oxcarbazepine 900 mg twice daily. There is no clear reason to why he had such prolonged seizure. I do not see any electrolyte imbalance or any evidence of an infection that may have triggered his seizures. Now I understand that he has refractory epilepsy and will have breakthrough seizures, but given that the caregiver feels uncomfortable due to this prolonged episode, I have recommended observation for at least 24 hours before sending the patient home. RECOMMENDATION: Continue the same dose of zonisamide 400 mg twice daily and oxcarbazepine 900 mg twice daily. I have ordered the oxcarbazepine and zonisamide levels. I also ordered a urinalysis to evaluate for any possible urinary tract infection that may have been a provoking factor to the seizures. I loaded the patient with a small dose of levetiracetam 500 mg IV to prevent any progression to convulsive status epilepticus. I also ordered a routine EEG that can be done at bedside either in the ER or once he is admitted to rule out nonconvulsive status epilepticus. I discussed this case with Dr. Wilfred Whalen as well as Dr. Duran, who is the patient's neurologist. I will continue to follow. [id number]/[facility] #: [id number] [facility]
[2017-10-21] MEDS: Polyethylene Glycol 3350* 17 GM PACKET PO SCH (21:55)
[2017-10-21] MEDS: Chlorhexidine MOUTHWASH 0.12%* 15 ML UDC SWISH SPIT SCH (21:55)
[2017-10-21 22:03] LABS: Urine Appearance Cloudy; Urine Blood Negative (Negative); Urine Color Yellow; Urine Ketones Negative (Negative); Urine Protein Negative (Negative); Urine Specific Gravity 1.014 (1.010-1.030); Urine Urobilinogen Negative (Negative)
[2017-10-22] MEDS: levETIRAcetam 500 MG IVPREMIX* 500 MG/100 ML BAG IV SCH (02:54)
[2017-10-22 05:54] LABS: ABS Basophils 0 10^3/ul (0-0.2); ABS Eosinophils 0.1 10^3/ul (0-0.6); ABS Lymphocytes 1.9 10^3/ul (1.0-4.8); ABS Monocytes 0.6 10^3/ul (0-0.8); ABS Neutrophils 3.3 10^3/ul (1.5-7.7); ABS Nucleated RBC 0 10^3/ul; Eosinophil % 1.7 % (0-6); Hematocrit 42 % (42-52); Hemoglobin 14.3 g/dl (14.0-18.0); Lymphocyte % 31.6 % (25-47); Mean Corpuscular HGB Conc 34 g/dl (31-36); Mean Corpuscular Hemoglobin 32 pg (27-31); Mean Corpuscular Volume 94 fL (80-94); Mean Platelet Volume 7.9 um3 (7.4-10.4); Nucleated Red Blood Cells % 0.1; Platelet Count 269 10^3/ul (150-450); Red Blood Count 4.42 10^6/ul (4.00-5.40); Red Cell Distribution Width 12 % (10.5-15); White Blood Count 5.9 10^3/ul (3.5-10.8)
[2017-10-22 06:23] LABS: EGFR Non-African American 175.2 (>60)
--- NOTE | 2017-10-22 08:07 | PN ---
Subjective Date of Service: 10/22/17 Interval History: Mr. Alvares is not able to offer any complaint but appears in no acute distress. His caregivers state that he appears to be at his baseline, though a little sleepier than usual. Objective Active Medications: Acetaminophen (Tylenol Tab*) 650 mg PO Q4H PRN Al Hydrox/Mg Hydrox/Simethicone (Maalox Plus*) 30 ml PO Q6H PRN Albuterol (Ventolin 2.5 Mg/3 Ml Neb.Dottie*) 2.5 mg INH [id number] AWAKE PRN Bacitracin (Bacitracin Ointment*) 1 applic TOPICAL BID PRN Bisacodyl (Dulcolax Supp*) 10 mg GA DAILY PRN Carbamide Peroxide (Debrox 6.5% Otic*) 2 drop BOTH EARS BEDTIME PRN Chlorhexidine Gluconate (Peridex Mouth Wash 0.12%*) 5 ml SWISH SPIT BID RAJESH Cholecalciferol (Vitamin D Tab*) 1,000 units PO QAM RAJESH Clonazepam (Klonopin Tab(*)) 1 mg PO TID PRN Docusate Sodium (Colace Cap*) 100 mg PO DAILY RAJESH Guaifenesin (Robitussin*) 10 ml PO Q4H PRN Levetiracetam (Keppra Iv Premix*) 500 mg in 100 mls @ 400 mls/hr IV Q12H RAJESH Ibuprofen (Advil Tab*) 200 mg PO Q6H PRN Magnesium Hydroxide (Milk Of Magnesia Liq*) 30 ml PO Q4H PRN Ondansetron HCl (Zofran Inj*) 4 mg IV Q4H PRN Oxcarbazepine (Trileptal Tab(*)) 900 mg PO BID RAJESH Polyethylene Glycol/Electrolytes (Miralax*) 17 gm PO TID RAJESH Sodium Biphosphate/Sodium Phosphate (Fleet Enema*) 1 bottle GA DAILY PRN Temazepam (Restoril Cap*) 30 mg PO BEDTIME PRN Vitamin A/Vitamin D (Vitamin A & D Jair Oint*) 1 applic TOPICAL BID PRN Zonisamide (Zonegran (Nf)) 400 mg PO BID RAJESH Vital Signs: Temp Pulse Resp BP Pulse Ox 96.8 F 60 14 85/58 100 10/22/17 03:48 10/22/17 03:48 10/22/17 03:48 10/22/17 03:48 10/22/17 03:48 Oxygen Devices in Use Now: None Appearance: Male lying in bed in NAD Eyes: No Scleral Icterus Ears/Nose/Mouth/Throat: Mucous Membranes Moist Neck: Trachea Midline Respiratory: Clear to Auscultation Cardiovascular: NL Sounds; No Murmurs; No JVD, No Edema Neurological: - - Alert, opens eyes to voice and stimulation. Arms and legs contracted, R > L. Noted to contract legs bilaterally to noxious stimuli. Result Diagrams: 10/22/17 05:36 10/22/17 05:36 Additional Lab and Data: . Assess/Plan/Problems-Billing Assessment: Mr. Alvares is a 32 yo male with a PMH of traumatic brain injury, spastic quadriplegia and subsequent seizure disorder who was admitted on 10/21/17 with uncontrolled seizures. - Patient Problems (1) Uncontrolled seizures Comment: - Seizures controlled s/p clonazepam. - Appreciate consultation from neurology. Quinn initiated. Continue trileptal and zonisamide. Levels pending, Dr. Zavala's office will follow up outpatient. (2) Spastic quadriplegia Comment: - Continue supportive care. (3) DVT prophylaxis Comment: - SCDs. (4) Full code status Comment: Status and Disposition: OBV. Discharge to home.
[2017-10-22 08:20] VITALS: BP 95/61
[2017-10-22] MEDS: ZONISAMIDE 50 MG PO SCH (08:22)
[2017-10-22] MEDS: Polyethylene Glycol 3350* 17 GM PACKET PO SCH (08:22)
[2017-10-22] MEDS: OXcarbazepine TAB(*) 300 MG PO SCH (08:23)
[2017-10-22] MEDS: Chlorhexidine MOUTHWASH 0.12%* 15 ML UDC SWISH SPIT SCH (08:54)
[2017-10-22] MEDS ORDERED: Cholecalciferol TAB* 1000 UNITS PO SCH (09:00)
[2017-10-22] MEDS ORDERED: Docusate CAP* 100 MG PO SCH (09:00)
[2017-10-22] MEDS ORDERED: Zonisamide(NF) 100 MG CAP PO SCH (09:00)
--- NOTE | 2017-10-22 11:13 | EEG ---
ELECTROENCEPHALOGRAPHY: DATE OF SERVICE: 10/21/17 DATE READ: 10/21/17 ENTERED BY: Kristal Zavala MD MEDICATIONS: 1. Zonisamide 2. Oxcarbazepine. 3. Vitamin D. 4. Acetaminophen. 5. Acyclovir. 6. Maalox. 7. Ventolin. 8. Bacitracin. 9. Clonazepam. 10. Ibuprofen. 11. Ondansetron. 12. Temazepam. INDICATION: This is a 32-year-old man with history of localization-related epilepsy due to traumatic brain injury who presents with prolonged focal seizure with suspected secondary generalization without any convulsive seizures , but complex partial seizures. This EEG was obtained to evaluate for nonconvulsive status epilepticus. CLINICAL STATE: Awake. REPORT: The most prominent feature of this recording was underlying interhemispheric asymmetry with the left hemisphere showing higher amplitude and higher frequencies mostly due to an underlying breach rhythm with prominent beta activity at 14-15 Hz admix 2-6 Hz theta and delta slowing continuously seen throughout the left hemisphere, most prominently at the central parietal region. In addition, the right hemisphere showed a background consisted of a mixed frequency slowing in the delta and theta range with inappropriate organization and no defined anterior posterior voltage gradient. A waking background rhythm was difficult to obtain, but ranged around 3-5 Hz. In addition to the interhemispheric asymmetry, there were occasional, sharp and slow wave with mixed spike and slow wave epileptiform discharges seen in the left parietal, left frontal and right frontopolar region maximal at P3 and FP2. There were more epileptiform discharges in the left hemisphere compared to the right. Photic stimulation and hyperventilation were not performed. Throughout the recording, there were no electrographic seizures. CLINICAL IMPRESSION: This is an abnormal awake EEG due to the presence of interhemispheric asymmetry with breach rhythm in the left hemisphere with superimposed diffuse slowing and multifocal epileptiform discharges most prominently seen in the left parietal area. These findings are suggestive of a moderate nonspecific encephalopathy with increase in epileptogenic potentials emanating from the left frontoparietal and right frontopolar area. There were no electrographic seizures. [id number]/[facility] #: [id number] [facility]
--- NOTE | 2017-10-22 22:03 | PN ---
NEUROLOGY PROGRESS REPORT: DATE OF SERVICE: 10/22/17 PRIMARY PROVIDER: Daphne Cisneros NP Neurology is following for the evaluation and management of prolonged focal seizures. CHIEF COMPLAINT: The patient is minimally verbal at baseline. SUBJECTIVE: The patient is resting comfortably. Evita, who is the patient' s caregiver is at bedside and stated that the the patient is back to his normal self and the patient was able to tolerate breakfast this morning. There has been no complaints of any aggressive or mood behavioral changes since starting Keppra. The patient has not had any seizures. MEDICATIONS: 1. Acetaminophen 650 mg p.o. every 4 hours. 2. Albuterol 2.5 mg inhalation by RT every 4 hours. 3. Bacitracin ointment. 4. Dulcolax. 5. Klonopin 1 mg p.o. t.i.d. p.r.n. for seizures. 6. Levetiracetam, he only received 1 dose of 500 mg IV. 7. Magnesium hydroxide 30 mg p.o. every 4 hours as needed for constipation. 8. Oxcarbazepine 900 mg p.o. twice daily. 9. Zonisamide 400 mg p.o. twice daily. REVIEW OF SYSTEMS: Unable to obtain due to the patient's baseline nonverbal status. PHYSICAL EXAMINATION: Vitals: Temperature of 97.3, pulse of 65, respiratory rate is 16, oxygen saturation of 100%, and blood pressure is 95/61. General: Chronically ill-appearing young man, in no acute distress. Well nourished, well developed appearing. He is resting comfortably. He is staring at examiner and was able to track me while going around the room. Head: There is evidence of trauma of the head with chronic scarring on the left side from previous craniotomy. Eyes: Conjunctivae/corneas are clear with no scleral icterus. Mental Status: The patient is awake, but is nonverbal. This is his baseline. Cranial Nerves: He is able to track examiner throughout the room. Pupils are midrange and reactive to light and are dilated at 5 mm and constricted 4 mm with light bilaterally. He has no facial droop. Motor: The patient has spastic paraparesis where he has got contractures and hemiplegia on the right upper and right lower extremities. The patient has ankle contractures on the right. LABORATORY DATA: WBC of 5.9, hemoglobin of 14.3, hematocrit of 42, platelet count of 269. Sodium 137, potassium 4.3, chloride of 107, carbon dioxide 24. Urinalysis showed no evidence of pyuria. ASSESSMENT AND RECOMMENDATIONS: Mr. Ector Alvares is a 32-year-old male with history of severe developmental delay secondary to traumatic brain injury at 1 years of age, who suffers from refractory localization related epilepsy with mostly focal motor seizures involving the right upper extremity. The patient had a prolonged seizure yesterday, requiring Klonopin to vanesa the seizure. The patient was loaded with Keppra 500 mg IV x1. The patient appears to be back to his baseline self. The oxcarbazepine and the zonisamide levels are still pending. I recommend continuing levetiracetam at a very low dose at 250 mg twice daily until the levels come back. We can follow up with the levels as an outpatient and if the zonisamide or the oxcarbazepine levels are in the lower range, I recommend discontinuing levetiracetam and increasing either the zonisamide or oxcarbazepine levels. We still have room to go up on the oxcarbazepine up to 1200 mg twice daily. However, again this can be done as an outpatient for now. Since the patient is back to baseline and the caregiver at bedside would like to take him back to the long-term, I recommend discharging the patient today. I will make sure the patient will have a followup appointment within the next 4-6 weeks. The patient does not have any electrolyte imbalance or infection that may explain his breakthrough seizures. However, at baseline, the patient average is 1-3 seizures a month, but there are few months where he is seizure free. Continue the Klonopin 1 mg as needed for seizures lasting a certain period that was instructed by Dr. Duran in the past. I have answered Evita's questions. I will sign off. [id number]/[facility] #: [id number] [facility]
--- NOTE | 2017-10-22 22:20 | DS ---
CC: Dr. Zavala * [facility] MEDICINE DISCHARGE SUMMARY: DATE OF ADMISSION: 10/21/17 DATE OF DISCHARGE: 10/22/17 ATTENDING PHYSICIAN: Dr. Aleksander Loyola * (dictation provided by Daphne Cisneros NP ). PRIMARY DIAGNOSIS: Uncontrolled seizures, now resolved. SECONDARY DIAGNOSES: 1. History of traumatic brain injury. 2. Medically intractable epilepsy. 3. Severe intellectual disability. 4. Spastic quadriplegia. 5. Hypothyroidism. 6. Chronic constipation. MEDICATIONS AT THE TIME OF DISCHARGE: 1. Keppra 250 mg p.o. b.i.d. (new medication). 2. Debrox 6.5% otic 2 drops both ears at bedtime p.r.n. 3. Zinc oxide 13% topically t.i.d. p.r.n. 4. Clonazepam 1 mg p.o. t.i.d. p.r.n. 5. Vitamin A and D ointment 1 application topically b.i.d. p.r.n. 6. Bacitracin 1 application topically b.i.d. p.r.n. 7. Zonisamide 300 mg p.o. q.a.m. (level pending). 8. Ibuprofen 200 mg p.o. q.6 hours p.r.n. 9. Dulcolax 10 mg p.o. OK daily p.r.n. 10. Tylenol 650 mg p.o. q.4 hours p.r.n. 11. Maalox plus 2 teaspoons p.o. q.4 hours p.r.n. 12. Guaifenesin liquid 2 teaspoons p.o. q.4 hours p.r.n. 13. Acyclovir 400 mg p.o. t.i.d. p.r.n. 14. Temazepam 30 mg p.o. daily p.r.n. 15. Fleet Enema 1 enema OK daily p.r.n. 16. Magnesium hydroxide 30 mL p.o. daily p.r.n. 17. Polyethylene glycol 17 g p.o. t.i.d. 18. Chlorhexidine mouth wash 1 teaspoon swish and spit b.i.d. 19. Zonisamide 400 mg p.o. q.p.m. (level pending). 20. Probiotic 1 each p.o. daily. 21. Trileptal 900 mg p.o. b.i.d. (level pending). 22. Colace 100 mg p.o. daily. 23. Cholecalciferol 1000 units p.o. q.a.m. 24. Calcium with vitamin D 1 each p.o. q.a.m. HOSPITAL COURSE: Mr. Alvares is a 32-year-old with past medical history of medically intractable seizures after a traumatic brain injury, who has intellectual disability and spastic quadriplegia and presents to the hospital on 10/21/17 with concern for uncontrolled seizure activity. Please see the dictated H and P from Herbert Hernandez MD for complete details. In brief, the patient was brought to the emergency room after he had greater than 30 minutes of seizure activity involving the right arm. Mr. Alvares was admitted to the hospital. He was seen in consultation by Dr. Zavala from Neurology. He obtained an EEG and assisted with management and resolution of seizures with clonazepam. The patient has remained seizure free. Mr. Alvares has been started on Keppra IV. Dr. Zavala has recommended that the patient be transitioned over to oral Keppra 250 mg p.o. b.i.d. His Zonegran and Trileptal levels are pending. Dr. Zavala states that his office will follow up regarding the levels and adjust medications as needed going forward. Mr. Alvares is medically stable for discharge to home. Per his caregiver, he is back to baseline. There is no overt evidence of seizure activity. DISPOSITION: To home. DIET: Regular. ACTIVITY: As tolerated. FOLLOW-UP PLANS: 1. Please follow-up with Dr. Zavala regarding his acute hospitalization within the next month for continued management of seizure disorder. 2. Please follow-up with Dr. Tatiana Bellamy per routine regarding management of ongoing chronic medical conditions. TIME SPENT: Approximately 60 minutes were spent on the discharge of this patient, more than half of that time was spent with him and his caregiver at the bedside, reviewing the events leading up to and during this hospitalization , performing the physical examination, and reviewing the plan of care. DAPHNE CISNEROS PIPE THREADING MACHINE OPERATOR [id number]/[facility] #: [id number] MICHAEL
== END 2017-10-22 11:52 | disposition home or self-care (01) ==
LOC: ED 10:35 → MEDTELE 16:00
PROVIDERS: ADMIT Internal Medicine; ATTEND Internal Medicine
DX: G40.919 Epilepsy, unspecified, intractable, without status epilepticus (principal); Z87.820 Personal history of traumatic brain injury; F72 Severe intellectual disabilities; G82.50 Quadriplegia, unspecified; E03.9 Hypothyroidism, unspecified; K59.00 Constipation, unspecified; Z79.899 Other long term (current) drug therapy; Z88.8 Allergy status to other drugs, medicaments and biological substances
CPT/HCPCS: 36415; 80048; 80053; 80183; 80203; 81003; 83735; 85025; 95816; 96365; 96366; 99284; A9270-GY; G0378

== ENCOUNTER 2018-02-27 09:43 | Emergency (ER) | payer MEDICAID ==
[2018-02-27 10:47] LABS: INR 0.94 (0.77-1.02)
[2018-02-27 10:48] LABS: ABS Basophils 0 10^3/ul (0-0.2); ABS Eosinophils 0.1 10^3/ul (0-0.6); ABS Lymphocytes 1.5 10^3/ul (1.0-4.8); ABS Monocytes 0.6 10^3/ul (0-0.8); ABS Neutrophils 3.2 10^3/ul (1.5-7.7); ABS Nucleated RBC 0 10^3/ul; Eosinophil % 1.1 % (0-6); Hematocrit 46 % (42-52); Hemoglobin 15.5 g/dl (14.0-18.0); Lymphocyte % 27.4 % (25-47); Mean Corpuscular HGB Conc 34 g/dl (31-36); Mean Corpuscular Hemoglobin 32 pg (27-31); Mean Corpuscular Volume 94 fL (80-94); Mean Platelet Volume 8.2 fL (7.4-10.4); Nucleated Red Blood Cells % 0.2; Platelet Count 240 10^3/ul (150-450); Red Blood Count 4.84 10^6/ul (4.00-5.40); Red Cell Distribution Width 13 % (10.5-15); White Blood Count 5.4 10^3/ul (3.5-10.8)
--- NOTE | 2018-02-27 10:55 | ED ---
Seizure - HPI Summary HPI Summary: Patient is a 31-year-old male resident of a [facility] brought in by ambulance. Priscilla, animal caretaker, is at bedside. Patient is nonverbal. 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 According to his protocol after 5 minutes of seizure, Klonopin is to be given, again repeating at the 10 minute nicki and again at the 15 minute nicki. After which they wait 20 minutes prior to calling the ambulance. At 20 minutes Nicki, patient continued to have focal seizure of left arm movement and ambulance was called. By the time the ambulance arrived, seizure had ceased and patient came back to baseline. During the seizure, patient remained awake, responsive and still at his baseline. Abnormality includes right arm jerks. Postdoctoral Scholar denies any recent illness, change in medications. Previously saw Dr. Knox as [facility] and now is seeing Dr. Rodgers. Currently on Keppra 250 mg twice a day, Zonegran 400 mg twice a day and Trileptal 900 mg twice a day. He has been seen in the ED previously for same and once admitted for observation most recently on 10/21/17. - History Of Current Complaint Chief Complaint: EDSeizure Time Seen by Provider: 02/27/18 09:53 Hx Obtained From: Family/Postdoctoral Scholar Onset/Duration: Sudden Onset Severity Of Seizure: Self-Limited Location Of Seizure: Focal Movement(s) - right arm twitching Aggravating Factor(s): Nothing Alleviating Factor(s): Other - 3 (5mg clonazepam) over the course of 15 minutes ODT Associated Signs And Symptoms: Negative - Risk Factors SAH Risk Factors: Negative Meningitis Risk Factors: Negative SDH Risk Factor: Negative - Allergies/Home Medications Allergies/Adverse Reactions: Allergies Allergy/AdvReac Type Severity Reaction Status Date / Time topiramate [From Topamax] Allergy GI Upset Verified 10/21/17 11:14 BANDAIDS Allergy Severe Blisters Uncoded 10/21/17 10:47 Home Medications: Home Medications Levothyroxine Sodium 88 mcg PO DAILY 02/27/18 [History Confirmed 02/27/18] PMH/Surg Hx/FS Hx/Imm Hx Previously Healthy: Yes Endocrine/Hematology History: Reports: Hx Thyroid Disease - HYPO Respiratory History: Reports: Other Respiratory Problems/Disorders - sinusitis Denies: Hx Asthma, Hx Chronic Obstructive Pulmonary Disease (COPD), Hx Pneumonia GI History: Reports: Other GI Disorders - constipation Musculoskeletal History: Reports: Other Musculoskeletal History - Osteoporosis; Hemiparesis of RUE. 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 - Immunization History Immunizations Up to Date: Yes Infectious Disease History: No Infectious Disease History: Denies: Traveled Outside the [place] in Last 30 Days - Family History Known Family History: Positive: Unknown - pt with MR,CP, resident of prison , no family to provide history Family History: UNKNOWN: as above, and aide also not able to provide family history, and no family history noted in records, pt's book or [facility] records. LEVEL 5 caveat - Social History Occupation: Unemployed Lives: [facility] Alcohol Use: None Hx Substance Use: No Substance Use Type: Reports: None Hx Tobacco Use: No Smoking Status (MU): Never Smoked Tobacco Review of Systems - ROS Summary Review of Systems Summary: leval 5 caveat d/t non verbal - information provided by animal caretaker Constitutional: Negative Negative: Fever, Chills, Fatigue, Skin Diaphoresis Negative: Palpitations, Chest Pain Negative: Shortness Of Breath, Cough Genitourinary: Negative Positive: no symptoms reported, see HPI Negative: Arthralgia, Myalgia Negative: Bruising Negative: Headache, Weakness, Paresthesia, Numbness Psychological: Normal All Other Systems Reviewed And Are Negative: Yes Physical Exam Triage Information Reviewed: Yes Vital Signs On Initial Exam: Initial Vitals Temp Pulse Resp BP Pulse Ox 97.5 F 91 16 110/69 98 02/27/18 09:47 02/27/18 09:47 02/27/18 09:47 02/27/18 09:47 02/27/18 09:47 Vital Signs Reviewed: Yes Appearance: Positive: Well-Appearing, Well-Nourished Skin: Positive: Warm, Skin Color Reflects Adequate Perfusion Head/Face: Positive: Normal Head/Face Inspection Eyes: Positive: EOMI, ALECIA, Conjunctiva Clear Neck: Positive: Nontender, No Lymphadenopathy Musculoskeletal: Positive: Other - clubbed feet; flexion contracture of the RUQ with rihgt hemiparesis - at baseline Neurological: Positive: Other - opens eyes spontaneously, non-verbal; no seizure activity noted on exam Diagnostics - Vital Signs Vital Signs Temp Pulse Resp BP Pulse Ox 02/27/18 09:47 97.5 F 91 16 110/69 98 - Laboratory Lab Results: Lab Results 02/27/18 02/27/18 Range/Units 10:28 10:29 WBC 5.4 (3.5-10.8) 10^3/ul RBC 4.84 (4.00-5.40) 10^6/ul Hgb 15.5 (14.0-18.0) g/dl Hct 46 (42-52) % MCV 94 (80-94) fL MCH 32 H (27-31) pg MCHC 34 (31-36) g/dl RDW 13 (10.5-15) % Plt Count 240 (150-450) 10^3/ul MPV 8.2 (7.4-10.4) fL Neut % (Auto) 59.5 (38-83) % Lymph % (Auto) 27.4 (25-47) % Kleberg % (Auto) 11.2 H (0-7) % Eos % (Auto) 1.1 (0-6) % Baso % (Auto) 0.8 (0-2) % Absolute Neuts (auto) 3.2 (1.5-7.7) 10^3/ul Absolute Lymphs (auto) 1.5 (1.0-4.8) 10^3/ul Absolute Monos (auto) 0.6 (0-0.8) 10^3/ul Absolute Eos (auto) 0.1 (0-0.6) 10^3/ul Absolute Basos (auto) 0 (0-0.2) 10^3/ul Absolute Nucleated RBC 0 10^3/ul Nucleated RBC % 0.2 INR (Anticoag Therapy) 0.94 (0.77-1.02) Result Diagrams: 02/27/18 10:28 02/27/18 10:28 Lab Statement: Any lab studies that have been ordered have been reviewed, and results considered in the medical decision making process. - EKG No standard instances Cardiac Rate: NL EKG Rhythm: Sinus Rhythm ST Segment: Normal EKG Comparison: No Significant Change Course/Dx - Course Course Of Treatment: There is no obvious signs of focal seizure with no right arm itching. Arm paralysis at baseline. Labs obtained including Keppra, Zonegran and Trileptal levels. Labs otherwise WNL. Lungs CTA. RRR. Patient appears well and otherwise at his baseline per animal caretaker. Discussed case with Dr. Dias who suggests increase in Keppra to 500 mg twice a day and follow-up with Dr. Rodgers. - Diagnoses Differential Diagnosis/HQI/PQRI: Positive: New Onset Seizure Provider Diagnoses: Focal seizure - Physician Notifications Discussed Care of Patient With: Tono Dias - Increase keppra level to 500mg BID Discharge - Sign-Out/Discharge Documenting (check all that apply): Patient Departure - Discharge Plan Condition: Stable Disposition: HOME Referrals: Tatiana Bellamy MD [Primary Care Provider] - Armand Rodgers MD [Medical Doctor] - Additional Instructions: Increase dose of Keppra 500mg twice daily Call Dr. Rodgers for an appt on Wednesday If seizure returns, return to the ED - Billing Disposition and Condition Condition: STABLE Disposition: Home
[2018-02-27 11:52] VITALS: BP 104/66
== END 2018-02-27 12:02 | disposition home or self-care (01) ==
LOC: ED 09:43
DX: G40.209 Localization-related (focal) (partial) symptomatic epilepsy and epileptic syndromes with complex partial seizures, not intractable, without status epilepticus (principal); E03.9 Hypothyroidism, unspecified; Z91.048 Other nonmedicinal substance allergy status
CPT/HCPCS: 36415; 80053; 80177; 80183; 80203; 82550; 83605; 83735; 85025; 85610; 93005; 99282

== ENCOUNTER → 2018-03-14 22:46 | Emergency (ER) | payer MEDICAID ==
--- OUTSIDE RECORDS SUMMARY | 2018-03-14 22:57 | XMS REPORT ---
:1985 External Reference #:[id number] Author Organization [facility] Address [address] [place] [address] [place] [address] Phone [phone] Care Team Providers Name Role Phone Tatiana Hurst MD Primary Care Physician Unavailable Payers Type Date Identification Numbers Payment Provider Subscriber Medicaid Policy Number: [id number] Medicaid [employer] Name: 1 1 [address] PayID: [id number] [place] [address] Problems Date Description Provider Status Onset: 01/18/2015 Localization-related epilepsy Armand Rodgers M.D. 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 REED Costa Active 20-34) Onset: 10/21/2017 Congenital quadriplegia REED Costa Active Social History Type Date Description Comments ETOH Use Never used alcohol Smoking Patient has never smoked Allergies, Adverse Reactions, Alerts Date Description Reaction Status Severity Comments 07/12/2013 Plastic Tape Blisters active 07/12/2013 Topamax GI UPSET, WEIGHT LOSS active Medications Medication Date Status Form Strength Qnty SIG Indications Ordering Provider Quinn 03/01 Active Tablets 500mg 60tab 1 by Armand S. /Justice Rodgers twice a M.DThea day Clonazepam 01/06 Active Tablets 1mg 30tab take 1 Armand S. /2015 Dispers s sublingua anh Rodgers as M.DThea needed for focal motor seizure lasting more than 5 mins, may repeat in 5 mins x2 if needed if rr>10bpm Zonisamide 02/08 Active Capsules 100mg 240ca 4 tablets G40.219 oph /2014 ps twice a Branden Dias day Levothyroxine Active Tablets 88mcg 30tab 1 by Unknown Sodium /0000 s mouth every day Oyster Shell Active Tablets 500mg qd Unknown Trileptal Active Tablets 300mg 180ta 3 tabs po Armand S. bs bid Branden Rodgers Miralax Active Powder 3350NF 238gm 17 gm Unknown /0000 mixed w/ 8 oz water/jui ce bid Acetaminophen Active Tablets 325mg 2 tab po Unknown /0000 q 4h prn pain, discomfor t, fever > 101F Bacitracin Active Ointment 500Unit/G 30gm topical Unknown /0000 M prn minor cuts, abrasions , insect bites Biscodyl Active Suppositor 10mg 10mg Unknown /0000 y rectally prn constipat ion Temazepam Active Capsules 15mg 2 caps 2 Unknown /0000 hrs before medical appointme nts Ibuprofen Active Tablets 400mg by mouth Unknown /0000 every 4 to 6 hours as needed Mineral Oil Active Oil instill 3 Unknown /0000 drops each ear every week (break up wax) prn Maalox Active Chewtabs 2 tsp po Unknown /0000 prn between meals A&D Ointments Active prn Unknown /0000 Desitin Active 3x daily Unknown /0000 to irritated area until healed Probiotic Active Capsules 1 by Unknown /0000 mouth every day Acyclovir Active Tablets 400mg take 1 Unknown /0000 tablet by mouth tid prn Acetaminophen Active Suppositor 650mg insert 1 Unknown /0000 y rectally every 4 hours as needed for fever >101 Robitussin Active Liquid 100mg/5ML 5-10mL po Unknown Mucus+Chest /0000 4 q4h prn Congestion Peridex Active Solution 0.12% 15 Unknown /0000 millilite rs swish and spit twice a day Debrox Active Solution 6.5% 1-2 drops Unknown /0000 in affacted ear the night before shower, rince out Vitamin D3 Active Chewtabs 1000Unit 30uni 1 chew by Armand Mason / ts mouth Vishal, once a M.D. day Guaifenesin Active Liquid 100mg/5ML 5 Unknown /0000 millilite rs by mouth every 4 hours as needed for cough Maalox Max Active Suspension 400-400-4 between Unknown /0000 0mg/5ML meals and at bedtime as needed x2 days Colace Active Capsules 100mg 1 tab by Unknown / mouth 2-3 times a day as needed Enema Active Enema 7-19GM/11 As Unknown /0000 8ML directed Keppra 11/10 Hx Tablets 250mg 60tab 1 tab by Armand Mason /2017 s anna Rodgers, - twice M.D. 03/01 Depakote 02/[address] 250mg 42tab 1 by G40.219 Deisy Duran, /2014 s mouth in MD - the Am 05/13 and 2 the PM x1 week then decrease by 250mg per week as per separate instructi ons Depakote 01/[address] 250mg 30tab 1 po qam Armand Mason /James Pugh M.D. 05/10 Vitamin D 07/12 Hx Capsules 2000Unit 30cap 1 by Armand Mason /2013 s mouth bid James Rodgers M.D. 10/24 Trileptal Hx Tablets 600mg 120ta 1 by / bs mouth - twice a Depakote Hx Tablets DR 500mg 60tab 1 by Maggie / s mouth JODY Barrios - twice a Prochlorperazine Hx Suppositor 25mg 15uni 1 Unknown /0000 y ts supposito - ry by way 01/17 of every 12 hours as needed vomiting Tussin Cough Hx Syrup 15mg/5ML 118ml 2 Unknown /0000 teaspoon - by mouth 10/24 every hour as needed cough Calamine Hx Lotion apply Unknown / topically - as needed 01/11 Peridex Hx Solution 0.12% bid Unknown /0000 - 10/24 Vital Signs Date Vital Result Comment 03/01/2018 Weight 153.31 lb Heart Rate 84 /min BP Systolic 100 mmHg BP Diastolic 58 mmHg Respiratory Rate 16 /min 01/12/2018 Weight 149.31 lb Heart Rate 84 /min BP Systolic 120 mmHg BP Diastolic 74 mmHg Respiratory Rate 16 /min 06/30/2017 Heart Rate 72 /min BP Systolic 118 mmHg BP Diastolic 82 mmHg 01/20/2017 Heart Rate 76 /min BP Systolic Sitting 118 mmHg BP Diastolic Sitting 78 mmHg 08/13/2016 Heart Rate 78 /min BP Systolic Sitting 110 mmHg BP Diastolic Sitting 78 mmHg 07/20/2016 Heart Rate 68 /min BP Systolic Sitting 106 mmHg BP Diastolic Sitting 80 mmHg Respiratory Rate 14 /min 11/12/2015 Heart Rate 80 /min BP Systolic Sitting 112 mmHg BP Diastolic Sitting 70 mmHg Respiratory Rate 16 /min 05/14/2015 Heart Rate 52 /min BP Systolic Sitting 112 mmHg BP Diastolic Sitting 76 mmHg Respiratory Rate 14 /min 02/08/2015 Heart Rate 88 /min Respiratory Rate 14 /min 01/18/2015 Heart Rate 72 /min BP Systolic Sitting 102 mmHg BP Diastolic Sitting 60 mmHg 01/19/2014 Heart Rate 80 /min BP Systolic Sitting 110 mmHg BP Diastolic Sitting 70 mmHg Respiratory Rate 16 /min 07/12/2013 Heart Rate 80 /min Respiratory Rate 16 /min Results Test Date Test Result H/L Range Note Laboratory test 07/08/2017 Zonisamide 13 g/mL 10-40 1, 2 finding Laboratory test 07/01/2017 TSH (Thyroid Stim 0.48 mcIU/mL 0.34-5.60 3, 4 finding Horm) T3 Free 3.70 pg/mL 2.5-3.9 3, 5 Free T4 (Free Thyroxine) 0.62 ng/dL 0.61-1.12 3, 6 Vitamin D Total 25(Oh) 40.3 ng/mL 20-50 3, 7 Laboratory test 02/25/2017 Vitamin D Total 57.0 ng/mL High 20-50 8, 9 finding 25(Oh) Laboratory test 01/07/2017 TSH (Thyroid Stim 0.62 mcIU/mL 0.34-5.60 10 finding Horm) T3 Free 3.30 pg/mL 2.5-3.9 10 Free T4 (Free Thyroxine) 0.64 ng/dL 0.61-1.12 10 Vitamin D Total 25(Oh) 64.9 ng/mL High 20-50 10 Lipid Profile (Trig/Chol/HDL) 01/07/2017 Triglycerides 160 mg/dL 10, 11 Cholesterol 176 mg/dL 10, 12 HDL Cholesterol 46.5 mg/dL 10, 13 LDL Cholesterol 98 mg/dL 10, 14 Laboratory test finding 01/07/2017 Zonisamide 13 g/mL 10-40 10, 15 Comp Metabolic Panel 01/07/2017 Sodium 141 mmol/L 133-145 10 Potassium 4.1 mmol/L 3.5-5.0 10 Chloride 108 mmol/L 101-111 10 Co2 Carbon Dioxide 25 mmol/L 22-32 10 Anion Gap 8 mmol/L 2-11 10 Glucose 91 mg/dL 70-100 10 Blood Urea Nitrogen 15 mg/dL 6-24 10 Creatinine 0.57 mg/dL Low 0.67-1.17 10 BUN/Creatinine Ratio 26.3 High 8-20 10 Calcium 9.8 mg/dL 8.6-10.3 10 Total Protein 7.1 g/dL 6.4-8.9 10 Albumin 4.3 g/dL 3.2-5.2 10 Globulin 2.8 g/dL 2-4 10 Albumin/Globulin Ratio 1.5 1-3 10 Total Bilirubin 0.30 mg/dL 0.2-1.0 10 Alkaline Phosphatase 79 U/L 34-104 10 Alt 21 U/L 7-52 10 Ast 13 U/L 13-39 10 Egfr Non- 165.7 >60 10 Egfr 213.0 >60 10, 16 CBC Auto Diff 01/07/2017 White Blood Count 5.2 10^3/uL 3.5-10.8 10 Red Blood Count 4.71 10^6/uL 4.0-5.4 10 Hemoglobin 15.1 g/dL 14.0-18.0 10 Hematocrit 44 % 42-52 10 Mean Corpuscular Volume 94 fL 80-94 10 Mean Corpuscular Hemoglobin 32 pg High 27-31 10 Mean Corpuscular HGB Conc 34 g/dL 31-36 10 Red Cell Distribution Width 13 % 10.5-15 10 Platelet Count 223 10^3/uL 150-450 10 Mean Platelet Volume 9 um3 7.4-10.4 10 Abs Neutrophils 2.9 10^3/uL 1.5-7.7 10 Abs Lymphocytes 1.6 10^3/uL 1.0-4.8 10 Abs Monocytes 0.6 10^3/uL 0-0.8 10 Abs Eosinophils 0.1 10^3/uL 0-0.6 10 Abs Basophils 0 10^3/uL 0-0.2 10 Abs Nucleated RBC 0 10^3/uL 10 Granulocyte % 56.1 % 38-83 10 Lymphocyte % 30.7 % 25-47 10 Monocyte % 10.9 % High 1-9 10 Eosinophil % 1.5 % 0-6 10 Basophil % 0.8 % 0-2 10 Nucleated Red Blood Cells % 0.1 10 Comp Metabolic Panel 08/24/2016 Sodium 138 mmol/L 133-145 17 Potassium 4.4 mmol/L 3.5-5.0 17 Chloride 103 mmol/L 101-111 17 Co2 Carbon Dioxide 29 mmol/L 22-32 17 Anion Gap 6 mmol/L 2-11 17 Glucose 83 mg/dL 70-100 17 Blood Urea Nitrogen 17 mg/dL 6-24 17 Creatinine 0.66 mg/dL Low 0.67-1.17 17 BUN/Creatinine Ratio 25.8 High 8-20 17 Calcium 10.0 mg/dL 8.6-10.3 17 Total Protein 7.9 g/dL 6.4-8.9 17 Albumin 4.7 g/dL 3.2-5.2 17 Globulin 3.2 g/dL 2-4 17 Albumin/Globulin Ratio 1.5 1-3 17 Total Bilirubin 0.30 mg/dL 0.2-1.0 17 Alkaline Phosphatase 90 U/L 34-104 17 Alt 16 U/L 7-52 17 Ast 13 U/L 13-39 17 Egfr Non- 140.8 >60 17 Egfr 181.1 >60 17, 18 CBC Auto Diff 08/24/2016 White Blood Count 6.7 10^3/uL 3.5-10.8 17 Red Blood Count 5.25 10^6/uL 4.0-5.4 17 Hemoglobin 16.1 g/dL 14.0-18.0 17 Hematocrit 50 % 42-52 17 Mean Corpuscular Volume 95 fL High 80-94 17 Mean Corpuscular Hemoglobin 31 pg 27-31 17 Mean Corpuscular HGB Conc 32 g/dL 31-36 17 Red Cell Distribution Width 13 % 10.5-15 17 Platelet Count 248 10^3/uL 150-450 17 Mean Platelet Volume 10 um3 7.4-10.4 17 Abs Neutrophils 4.0 10^3/uL 1.5-7.7 17 Abs Lymphocytes 1.9 10^3/uL 1.0-4.8 17 Abs Monocytes 0.6 10^3/uL 0-0.8 17 Abs Eosinophils 0.1 10^3/uL 0-0.6 17 Abs Basophils 0.2 10^3/uL 0-0.2 17 Abs Nucleated RBC 0.01 10^3/uL 17 Granulocyte % 59.0 % 38-83 17 Lymphocyte % 27.5 % 25-47 17 Monocyte % 9.2 % High 1-9 17 Eosinophil % 1.1 % 0-6 17 Basophil % 3.2 % High 0-2 17 Nucleated Red Blood Cells % 0.1 17 Laboratory test finding 08/24/2016 Zonisamide 14 g/mL 10-40 17, 19 Laboratory test finding 05/08/2016 Zonisamide 13 g/mL 10-40 20, 21 Trileptal (Oxcarbazepine) 32 g/mL 3 - 35 20, 22 Comp Metabolic Panel 11/22/2015 Sodium 139 mmol/L 133-145 23 Potassium 4.0 mmol/L 3.5-5.0 23 Chloride 106 mmol/L 101-111 23 Co2 Carbon Dioxide 27 mmol/L 22-32 23 Anion Gap 6 mmol/L 2-11 23 Glucose 88 mg/dL 70-100 23 Blood Urea Nitrogen 14 mg/dL 6-24 23 Creatinine 0.61 mg/dL Low 0.67-1.17 23 BUN/Creatinine Ratio 23.0 High 8-20 23 Calcium 9.3 mg/dL 8.6-10.3 23 Total Protein 6.9 g/dL 6.4-8.9 23 Albumin 4.0 g/dL 3.2-5.2 23 Globulin 2.9 g/dL 2-4 23 Albumin/Globulin Ratio 1.4 1-3 23 Total Bilirubin 0.30 mg/dL 0.2-1.0 23 Alkaline Phosphatase 82 U/L 34-104 23 Alt 18 U/L 7-52 23 Ast 13 U/L 13-39 23 Egfr Non- 154.2 >60 23 Egfr 198.3 >60 23, 24 Laboratory test 11/22/2015 TSH (Thyroid Stim 0.99 mcIU/mL 0.34-5.60 23, 25 finding Horm) T3 Free 3.30 pg/mL 2.5-3.9 23, 26 Free T4 (Free Thyroxine) 0.53 ng/dL Low 0.61-1.12 23, 27 Vitamin D Total 25(Oh) 44.4 ng/mL 30-50 23, 28 CBC Auto Diff 11/22/2015 White Blood Count 6.3 10^3/uL 3.5-10.8 23 Red Blood Count 4.59 10^6/uL 4.0-5.4 23 Hemoglobin 14.4 g/dL 14.0-18.0 23 Hematocrit 43 % 42-52 23 Mean Corpuscular Volume 94 fL 80-94 23 Mean Corpuscular Hemoglobin 31 pg 27-31 23 Mean Corpuscular HGB Conc 34 g/dL 31-36 23 Red Cell Distribution Width 13 % 10.5-15 23 Abs Neutrophils 3.3 10^3/uL 1.5-7.7 23 Abs Lymphocytes 2.2 10^3/uL 1.0-4.8 23 Abs Monocytes 0.7 10^3/uL 0-0.8 23 Abs Eosinophils 0.1 10^3/uL 0-0.6 23 Abs Basophils 0 10^3/uL 0-0.2 23 Abs Nucleated RBC 0.03 10^3/uL 23 Granulocyte % 52.2 % 38-83 23 Lymphocyte % 34.0 % 25-47 23 Monocyte % 11.4 % High 1-9 23 Eosinophil % 1.8 % 0-6 23 Basophil % 0.6 % 0-2 23 Nucleated Red Blood Cells % 0.5 23 Platelet Count 222 10^3/uL 150-450 23 Mean Platelet Volume 9 um3 7.4-10.4 23 Urinalysis Profile 08/25/2015 Urine Color Yellow Urine Appearance Cloudy Urine Specific [place] 1.023 1.010-1.030 Urine pH 6.0 5-9 Urine Urobilinogen Negative Negative Urine Ketones Negative Negative Urine Protein Negative Negative Urine Leukocytes Negative Negative Urine Blood Negative Negative * * Negative 29 Urine Nitrite Negative Negative Urine Bilirubin Negative Negative Urine Glucose Negative Negative Laboratory test finding 06/06/2015 Trileptal (Oxcarbazepine) 29 g/mL 3 - 35 30 Zonisamide 19.1 ug/mL 7.0 - 40.0 31 Comp Metabolic Panel 02/25/2015 Sodium 137 mmol/L 133-145 Potassium 4.4 mmol/L 3.5-5.0 Chloride 106 mmol/L 101-111 Co2 Carbon Dioxide 26 mmol/L 22-32 Anion Gap 5 mmol/L 2-11 Glucose 72 mg/dL 70-100 Blood Urea Nitrogen 20 mg/dL 6-24 Creatinine 0.54 mg/dL Low 0.67-1.17 BUN/Creatinine Ratio 37.0 High 8-20 Calcium 9.6 mg/dL 8.6-10.3 Total Protein 6.8 g/dL 6.4-8.9 Albumin 4.2 g/dL 3.2-5.2 Globulin 2.6 g/dL 2-4 Albumin/Globulin Ratio 1.6 1-3 Total Bilirubin 0.40 mg/dL 0.2-1.0 Alkaline Phosphatase 43 U/L 34-104 Alt 12 U/L 7-52 Ast 12 U/L Low 13-39 Egfr Non- 178.6 >60 Egfr 229.8 >60 32 Laboratory test 01/25/2015 Trileptal (Oxcarbazepine) 33 g/mL 3 - 35 33 finding CBC Auto Diff 01/10/2015 White Blood Count 4.5 10^3/uL Low 4.8-10.8 Red Blood Count 4.51 10^6/uL 4.0-5.4 Hemoglobin 14.5 g/dL 14.0-18.0 Hematocrit 44 % 42-52 Mean Corpuscular Volume 98 fL High 80-94 Mean Corpuscular Hemoglobin 32 pg High 27-31 Mean Corpuscular HGB Conc 33 g/dL 31-36 Red Cell Distribution Width 13 % 10.5-15 Platelet Count 170 10^3/uL 150-450 Mean Platelet Volume 10 um3 7.4-10.4 Abs Neutrophils 1.6 10^3/uL 1.5-7.7 Abs Lymphocytes 2.3 10^3/uL 1.0-4.8 Abs Monocytes 0.5 10^3/uL 0-0.8 Abs Eosinophils 0.1 10^3/uL 0-0.6 Abs Basophils 0 10^3/uL 0-0.2 Abs Nucleated RBC 0.01 10^3/uL Granulocyte % 34.3 % Low 38-83 Lymphocyte % 51.9 % High 25-47 Monocyte % 12.0 % High 1-9 Eosinophil % 1.4 % 0-6 Basophil % 0.4 % 0-2 Nucleated Red Blood Cells % 0.1 Laboratory test finding 01/10/2015 Valproic Acid (Depakene) 91.0 g/mL 50-100 Comp Metabolic Panel 06/28/2014 Sodium 137 mmol/L 133-145 34 Potassium 4.2 mmol/L 3.5-5.0 34 Chloride 103 mmol/L 101-111 34 Co2 Carbon Dioxide 29 mmol/L 22-32 34 Anion Gap 5 mmol/L 2-11 34 Glucose 86 mg/dL 70-100 34 Blood Urea Nitrogen 16 mg/dL 6-24 34 Creatinine 0.46 mg/dL Low 0.67-1.17 34 BUN/Creatinine Ratio 34.8 High 8-20 34 Calcium 9.7 mg/dL 8.6-10.3 34 Total Protein 6.7 g/dL 6.4-8.9 34 Albumin 4.1 g/dL 3.2-5.2 34 Globulin 2.6 g/dL 2-4 34 Albumin/Globulin Ratio 1.6 1-3 34 Total Bilirubin 0.30 mg/dL 0.2-1.0 34 Alkaline Phosphatase 43 U/L 34-104 34 Alt 11 U/L 7-52 34 Ast 10 U/L Low 13-39 34 Egfr Non- 216.4 >60 34 Egfr 278.4 >60 34, 35 CBC Auto Diff 06/28/2014 White Blood Count 5.2 10^3/uL 4.8-10.8 34 Red Blood Count 4.45 10^6/uL 4.0-5.4 34 Hemoglobin 14.5 g/dL 14.0-18.0 34 Hematocrit 43 % 42-52 34 Mean Corpuscular Volume 96 fL High 80-94 34 Mean Corpuscular Hemoglobin 33 pg High 27-31 34 Mean Corpuscular HGB Conc 34 g/dL 31-36 34 Red Cell Distribution Width 13 % 10.5-15 34 Platelet Count 174 10^3/uL 150-450 34 Mean Platelet Volume 10 um3 7.4-10.4 34 Abs Neutrophils 2.4 10^3/uL 1.5-7.7 34 Abs Lymphocytes 1.9 10^3/uL 1.0-4.8 34 Abs Monocytes 0.8 10^3/uL 0-0.8 34 Abs Eosinophils 0.1 10^3/uL 0-0.6 34 Abs Basophils 0 10^3/uL 0-0.2 34 Abs Nucleated RBC 0 10^3/uL 34 Granulocyte % 46.0 % 38-83 34 Lymphocyte % 37.1 % 25-47 34 Monocyte % 15.2 % High 1-9 34 Eosinophil % 1.2 % 0-6 34 Basophil % 0.5 % 0-2 34 Nucleated Red Blood Cells % 0.1 34 Laboratory test finding 06/28/2014 Valproic Acid 94 g/mL 50.0-100.0 34, 36 Laboratory test finding 03/28/2014 Valproic Acid 119 g/mL High 50.0-100.0 Comp Metabolic Panel 01/12/2014 Sodium 138 mmol/L 133-145 Potassium 4.5 mmol/L 3.7-5.6 Chloride 101 mmol/L 101-111 Co2 Carbon Dioxide 32 mmol/L 22-32 Anion Gap 5 mmol/L 2-11 Glucose 82 mg/dL 70-100 Blood Urea Nitrogen 16 mg/dL 6-24 Creatinine 0.58 mg/dL Low 0.67-1.17 BUN/Creatinine Ratio 27.6 High 8-20 Calcium 9.7 mg/dL 8.6-10.3 Total Protein 6.9 g/dL 6.4-8.9 Albumin 4.2 g/dL 3.2-5.2 Globulin 2.7 g/dL 2-4 Albumin/Globulin Ratio 1.6 1-3 Total Bilirubin 0.30 mg/dL 0.2-1.0 Alkaline Phosphatase 42 U/L 34-104 Alt 8 U/L 7-52 Ast 10 U/L Low 13-39 Egfr Non- 165.6 >60 Egfr 213.0 >60 37 CBC Auto Diff 01/12/2014 White Blood Count 6.2 10^3/uL 4.8-10.8 Red Blood Count 4.34 10^6/uL 4.0-5.4 Hemoglobin 14.0 g/dL 14.0-18.0 Hematocrit 42 % 42-52 Mean Corpuscular Volume 96 fL High 80-94 Mean Corpuscular Hemoglobin 32 pg High 27-31 Mean Corpuscular HGB Conc 34 g/dL 31-36 Red Cell Distribution Width 13 % 10.5-15 Platelet Count 200 10^3/uL 150-450 Mean Platelet Volume 9 um3 7.4-10.4 Abs Neutrophils 2.7 10^3/uL 1.5-7.7 Abs Lymphocytes 2.8 10^3/uL 1.0-4.8 Abs Monocytes 0.7 10^3/uL 0-0.8 Abs Eosinophils 0.1 10^3/uL 0-0.6 Abs Basophils 0 10^3/uL 0-0.2 Abs Nucleated RBC 0 10^3/uL Laboratory test finding 01/12/2014 Valproic Acid 118 g/mL High 50.0-100.0 Oxcarbazepine 22 g/mL 3 - 35 38 Manual Differential 01/12/2014 Neutrophil % 45 % 38-83 Band % 2 % 0-8 Lymphocytes % 40 % 25-47 Monocytes % 6 % 0-13 Reactive Lymph % 7 % High 0-6 RBC Morphology Normal Normal Laboratory test finding 08/02/2013 Ammonia 42 mol/L 16-53 CBC Auto Diff 08/02/2013 White Blood Count 5.0 10^3/uL 4.8-10.8 Red Blood Count 4.28 10^6/uL 4.0-5.4 Hemoglobin 13.6 g/dL Low 14.0-18.0 Hematocrit 41 % Low 42-52 Mean Corpuscular Volume 96 fL High 80-94 Mean Corpuscular Hemoglobin 32 pg High 27-31 Mean Corpuscular HGB Conc 33 g/dL 31-36 Red Cell Distribution Width 13 % 10.5-15 Platelet Count 164 10^3/uL 150-450 Mean Platelet Volume 9 um3 7.4-10.4 Abs Neutrophils 2.2 10^3/uL 1.5-7.7 Abs Lymphocytes 2.2 10^3/uL 1.0-4.8 Abs Monocytes 0.6 10^3/uL 0-0.8 Abs Eosinophils 0.1 10^3/uL 0-0.6 Abs Basophils 0 10^3/uL 0-0.2 Abs Nucleated RBC 0 10^3/uL Granulocyte % 43.9 % 38-83 Lymphocyte % 42.8 % 25-47 Monocyte % 11.3 % High 1-9 Eosinophil % 1.3 % 0-6 Basophil % 0.7 % 0-2 Nucleated Red Blood Cells % 0 Comp Metabolic Panel 08/02/2013 Sodium 139 mmol/L 133-145 Potassium 4.0 mmol/L 3.7-5.6 Chloride 103 mmol/L 101-111 Co2 Carbon Dioxide 30 mmol/L 22-32 Anion Gap 6 mmol/L 2-11 Glucose 87 mg/dL 70-100 Blood Urea Nitrogen 19 mg/dL 6-24 Creatinine 0.49 mg/dL Low 0.67-1.17 BUN/Creatinine Ratio 38.8 High 8-20 Calcium 9.5 mg/dL 8.6-10.3 Total Protein 7.2 g/dL 6.4-8.9 Albumin 4.4 g/dL 3.2-5.2 Globulin 2.8 g/dL 2-4 Albumin/Globulin Ratio 1.6 1-3 Total Bilirubin 0.30 mg/dL 0.2-1.0 Alkaline Phosphatase 41 U/L 34-104 Alt 8 U/L 7-52 Ast 10 U/L Low 13-39 Egfr Non- 202.7 >60 Egfr 260.6 >60 39 Laboratory test finding 08/02/2013 Valproic Acid 110 g/mL High 50.0-100.0 Oxcarbazepine 22 g/mL 3 - 35 40 Laboratory test finding 08/02/2013 TSH (Thyroid Stimulating 1.19 IU/mL 0.34-5.60 Horm) Vitamin D, 25 Hydroxy 08/02/2013 25-Hydroxy Vitamin D2 <4.0 ng/mL 25-Hydroxy Vitamin D3 39 ng/mL 25-Hydroxy Vitamin D Total 39 ng/mL 41 1 [id number] ADDITIONAL INFORMATION This test was developed and its performance characteristics determined by [facility] in a manner consistent with CLIA requirements. This test has not been cleared or approved by the U.S. Food and Drug Administration. Test Performed by: [facility] [employer] [facility] [address] [place] [address] 3 [id number] 11 Desirable <150 Borderline high 150-199 High 200-499 Very High >500 12 Desirable <200 Borderline high 200-239 High >239 13 Low <40 Desirable: 40-60 High: >60 14 Desirable: <100 mg/dL Near Optimal: 100-129 mg/dL Borderline High: 130-159 mg/dL High: 160-189 mg/dL Very High: >189 mg/dL 15 ADDITIONAL INFORMATION This test was developed and its performance characteristics determined by [facility] in a manner consistent with CLIA requirements. This test has not been cleared or approved by the U.S. Food and Drug Administration. Test Performed by: [address] [address] 16 Because ethnic data is not always readily available, this report includes an eGFR for both -Americans and non- Americans. The National Kidney Disease Education Program (NKDEP) does not endorse the use of the MDRD equation for patients that are not between the ages of 18 and 70, are , have extremes of body size, muscle mass, or nutritional status, or are non- or non-. According to the National Kidney Foundation, irrespective of diagnosis, the stage of the disease is based on the level of kidney function: Stage Description GFR(mL/min/1.73 m(2)) 1 Kidney damage with normal or decreased GFR 90 2 Kidney damage with mild decrease in GFR 60-89 3 Moderate decrease in GFR 30-59 4 Severe decrease in GFR 15-29 5 Kidney failure <15 (or dialysis) 17 [id number] 18 Because ethnic data is not always readily available, this report includes an eGFR for both -Americans and non- Americans. The National Kidney Disease Education Program (NKDEP) does not endorse the use of the MDRD equation for patients that are not between the ages of 18 and 70, are , have extremes of body size, muscle mass, or nutritional status, or are non- or non-. According to the National Kidney Foundation, irrespective of diagnosis, the stage of the disease is based on the level of kidney function: Stage Description GFR(mL/min/1.73 m(2)) 1 Kidney damage with normal or decreased GFR 90 2 Kidney damage with mild decrease in GFR 60-89 3 Moderate decrease in GFR 30-59 4 Severe decrease in GFR 15-29 5 Kidney failure <15 (or dialysis) 19 ADDITIONAL INFORMATION This test was developed and its performance characteristics determined by [facility] in a manner consistent with CLIA requirements. This test has not been cleared or approved by the U.S. Food and Drug Administration. Test Performed by: [facility] [place] [id number] ADDITIONAL INFORMATION This test was developed and its performance characteristics determined by [facility] in a manner consistent with CLIA requirements. This test has not been cleared or approved by the U.S. Food and Drug Administration. Test Performed by: [facility] [place] [address] Visual Associate: Tez Farley II, M.D., Ph.D. 22 ADDITIONAL INFORMATION This test was developed and its performance characteristics determined by [facility] in a manner consistent with CLIA requirements. This test has not been cleared or approved by the U.S. Food and Drug Administration. Test Performed by: [facility] [place] [address] Visual Associate: Tez Farley II, M.D., Ph.D. 23 [id number] 24 Because ethnic data is not always readily available, this report includes an eGFR for both -Americans and non- Americans. The National Kidney Disease Education Program (NKDEP) does not endorse the use of the MDRD equation for patients that are not between the ages of 18 and 70, are , have extremes of body size, muscle mass, or nutritional status, or are non- or non-. According to the National Kidney Foundation, irrespective of diagnosis, the stage of the disease is based on the level of kidney function: Stage Description GFR(mL/min/1.73 m(2)) 1 Kidney damage with normal or decreased GFR 90 2 Kidney damage with mild decrease in GFR 60-89 3 Moderate decrease in GFR 30-59 4 Severe decrease in GFR 15-29 5 Kidney failure <15 (or dialysis) 25 [id number] 26 [id number] 27 [id number] 28 [id number] 29 *Ascorbic acid is present which may interfere with detection of blood. 30 Test Performed by: [place] [address] Visual Associate: Tez Farley II, M.D., Ph.D. 31 Test Performed by: [employer] [place] [address] [place] [address] 32 Because ethnic data is not always readily available, this report includes an eGFR for both -Americans and non- Americans. The National Kidney Disease Education Program (NKDEP) does not endorse the use of the MDRD equation for patients that are not between the ages of 18 and 70, are , have extremes of body size, muscle mass, or nutritional status, or are non- or non-. According to the National Kidney Foundation, irrespective of diagnosis, the stage of the disease is based on the level of kidney function: Stage Description GFR(mL/min/1.73 m(2)) 1 Kidney damage with normal or decreased GFR 90 2 Kidney damage with mild decrease in GFR 60-89 3 Moderate decrease in GFR 30-59 4 Severe decrease in GFR 15-29 5 Kidney failure <15 (or dialysis) 33 Test Performed by: [place] [address] Visual Associate: Tez Farley II, M.D., Ph.D. 34 FAX RESULTS TO WALESKA GUTIÉRREZ AT [phone] 35 Because ethnic data is not always readily available, this report includes an eGFR for both -Americans and non- Americans. The National Kidney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
[2018-03-14 23:15] VITALS: BP 105/69
--- NOTE | 2018-03-14 23:31 | ED ---
Lower Extremity - HPI Summary HPI Summary: A 32 y/o male brought in by ambulance presents to the ED c/o an erythematous right knee. The patient is unable to speak and cannot complain and this is his baseline. Per fixture fabricator repairer, his right knee was red and warm around 21:30 2017. He has a Hx of cellulitis. Per fixture fabricator repairer, currently his right knee is not red like it used to be. - History of Current Complaint Chief Complaint: EDExtremityLower Stated Complaint: RT LEG PAIN Time Seen by Provider: 03/14/18 23:21 Hx Obtained From: Family/Elementary School Registrar Hx From Patient Unobtainable Due To: Other Onset of Pain: Prior to Arrival Severity Initially: Moderate Severity Currently: Mild Pain Intensity: 0 - Allergies/Home Medications Allergies/Adverse Reactions: Allergies Allergy/AdvReac Type Severity Reaction Status Date / Time topiramate [From Topamax] Allergy GI Upset Verified 10/21/17 11:14 BANDAIDS Allergy Severe Blisters Uncoded 10/21/17 10:47 PMH/Surg Hx/FS Hx/Imm Hx Endocrine/Hematology History: Reports: Hx Thyroid Disease - HYPO Respiratory History: Reports: Other Respiratory Problems/Disorders - sinusitis Denies: Hx Asthma, Hx Chronic Obstructive Pulmonary Disease (COPD), Hx Pneumonia GI History: Reports: Other GI Disorders - constipation Musculoskeletal History: Reports: Other Musculoskeletal History - Osteoporosis; Hemiparesis of RUE. 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 Infectious Disease History: No Infectious Disease History: Denies: Traveled Outside the [place] in Last 30 Days - Family History Known Family History: Positive: Unknown - pt with MR,CP, resident of [facility] , no family to provide history Family History: UNKNOWN: as above, and aide also not able to provide family history, and no family history noted in records, pt's book or [facility] records. LEVEL 5 caveat - Social History Alcohol Use: None Hx Substance Use: No Substance Use Type: Reports: None Hx Tobacco Use: No Smoking Status (MU): Never Smoked Tobacco Review of Systems Negative: Fever Positive: Other - Positive: warm and erythematous right knee All Other Systems Reviewed And Are Negative: Yes Physical Exam - Summary Physical Exam Summary: VITAL SIGNS: Reviewed. GENERAL: Patient is a nonverbal, bedbound, contracted MALE. This is his baseline. Patient is not in any acute respiratory distress. HEAD AND FACE: No signs of trauma. No ecchymosis, hematomas or skull depressions. No sinus tenderness. EYES: PERRLA, EOMI x 2, No injected conjunctiva, no nystagmus. EARS: Hearing grossly intact. Ear canals and tympanic membranes are within normal limits. MOUTH: Oropharynx within normal limits. NECK: Supple, trachea is midline, no adenopathy, no JVD, no carotid bruit, no c- spine tenderness, neck with full ROM. CHEST: Symmetric, no tenderness at palpation LUNGS: Clear to auscultation bilaterally. No wheezing or crackles. CVS: Regular rate and rhythm, S1 and S2 present, no murmurs or gallops appreciated. ABDOMEN: Soft, non-tender. No signs of distention. No rebound no guarding, and no masses palpated. Bowel sounds are normal. EXTREMITIES: FROM in all major joints, Left knee swollen compared to right knee. NEURO: Patient is a nonverbal, bedbound and contracted. This is his baseline. SKIN: Dry and warm Triage Information Reviewed: Yes Vital Signs On Initial Exam: Initial Vitals Temp Pulse Resp BP Pulse Ox 97.9 F 64 20 105/69 100 03/14/18 23:06 03/14/18 23:06 03/14/18 23:06 03/14/18 23:06 03/14/18 23:06 Vital Signs Reviewed: Yes Diagnostics - Vital Signs Vital Signs Temp Pulse Resp BP Pulse Ox 03/14/18 23:06 97.9 F 64 20 105/69 100 - Laboratory Lab Statement: Any lab studies that have been ordered have been reviewed, and results considered in the medical decision making process. Lower Extremity Course/Dx - Course Course Of Treatment: A 32 y/o male brought in by ambulance presents to the ED c/ o an erythematous right knee. The patient is unable to speak and cannot complain and this is his baseline. Per fixture fabricator repairer, his right knee was red and warm around 21:30 03/14/2018. He has a Hx of cellulitis. Currently his right knee is not as red as it used to be. His PE revealed that the patient was Non- verbal, bedbound and contracted but this is his baseline. His Left knee was swollen compared to right knee. The pt has no signs of cellulitis. The fixture fabricator repairer agrees with me that currently the knee is not red. Dx: erythema. The patient will be discharged. He was given instructions to return to the ED if his redness returned and to follow up with his PCP in 1-2 days. They are agreeable with this plan. - Diagnoses Provider Diagnoses: Erythema Discharge - Sign-Out/Discharge Documenting (check all that apply): Patient Departure - DC - Discharge Plan Condition: Stable Disposition: HOME Referrals: Tatiana Bellamy MD [Primary Care Provider] - (1-2 days) Additional Instructions: RETURN TO THE EMERGENCY DEPARTMENT FOR CHANGING OR WORSENING SYMPTOMS OR IF THE REDNESS COMES BACK. FOLLOW UP WITH PCP IN 1-2 DAYS. - Attestation Statements Document Initiated by Scribe: Yes Documenting Scribe: Perez Dotson Provider For Whom Scribe is Documenting (Include Credential): Seilna Angeles MD Scribe Attestation: Perez Moore, scribed for Selina Angeles MD on 03/14/18 at 2334.
== END | disposition home or self-care (01) ==
LOC: ED 22:46
DX: L53.9 Erythematous condition, unspecified (principal); Z88.8 Allergy status to other drugs, medicaments and biological substances; Z91.048 Other nonmedicinal substance allergy status
CPT/HCPCS: 99281

== ENCOUNTER 2018-08-21 16:38 | Emergency (ER) | payer MEDICAID ==
[2018-08-21] MEDS ORDERED: levETIRAcetam TAB* 500 MG PO ONE (17:09)
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
[2018-08-21 18:18] VITALS: BP 127/75
== END 2018-08-21 18:17 | disposition home or self-care (01) ==
LOC: ED 16:38
DX: G40.909 Epilepsy, unspecified, not intractable, without status epilepticus (principal); Z91.14 Patient's other noncompliance with medication regimen; R47.9 Unspecified speech disturbances; Z91.49 Other personal history of psychological trauma, not elsewhere classified; Z86.39 Personal history of other endocrine, nutritional and metabolic disease
CPT/HCPCS: 80177; 99283; A9270-GY

== ENCOUNTER 2018-12-08 11:51 | Emergency (ER) | payer MEDICAID ==
[2018-12-08 12:19] VITALS: BP 0/0
--- NOTE | 2018-12-08 12:40 | UC ---
Skin Complaint HPI - HPI Summary HPI Summary: 33 yo male with CP and MR brought in for evaluation of left mid michael swelling noted today No known trauma pt non verbal today staff noted swelling left mid michael when patient stands - History of Current Complaint Chief Complaint: UCSkin Time Seen by Provider: 12/08/18 12:27 Stated Complaint: BUMP ON MICHAEL Hx Obtained From: Family/Retail Financial Analyst Onset/Duration: Lasting Hours - noted hours ago Onset Severity: Mild Current Severity: Mild Pain Intensity: 0 Pain Scale Used: Adult Non Verbal Location: Other - midline Associated Signs & Symptoms: Positive: Negative - Allergy/Home Medications Allergies/Adverse Reactions: Allergies Allergy/AdvReac Type Severity Reaction Status Date / Time latex Allergy Blisters Verified 12/08/18 12:07 topiramate [From Topamax] Allergy GI Upset Verified 12/08/18 12:07 BANDAIDS Allergy Severe Blisters Uncoded 12/08/18 12:07 PMH/Surg Hx/FS Hx/Imm Hx Endocrine History: Hypothyroidism Neurological History: CVA, Seizures - Surgical History Surgical History: Yes Surgery Procedure, Year, and Place: HEAD, FEET, 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 R knee surgery, R foot surgery. - Family History Known Family History: Positive: Unknown - pt with MR,CP, [facility] of [facility] , no family to provide history Family History: UNKNOWN: as above, and aide also not able to provide family history, and no family history noted in records, pt's book or [facility] records. LEVEL 5 caveat - Social History Alcohol Use: None Substance Use Type: None Smoking Status (MU): Never Smoked Tobacco Review of Systems All Other Systems Reviewed And Are Negative: Yes Constitutional: Positive: Negative Skin: Positive: Negative Eyes: Positive: Negative ENT: Positive: Negative Respiratory: Positive: Negative Cardiovascular: Positive: Negative Gastrointestinal: Positive: Negative Genitourinary: Positive: Negative Motor: Positive: Negative Neurovascular: Positive: Negative Musculoskeletal: Positive: Negative Neurological: Positive: Negative Psychological: Positive: Negative Physical Exam Triage Information Reviewed: Yes Appearance: Other: - in WC, contactures, playing with rattle Vital Signs: Initial Vital Signs Temp 98.2 F 12/08/18 12:08 Pulse 67 12/08/18 12:08 Resp 16 12/08/18 12:08 BP 0/0 12/08/18 12:08 Pulse Ox 99 12/08/18 12:08 Vital Signs Reviewed: Yes Eyes: Positive: Conjunctiva Clear ENT: Negative: Nasal congestion, Nasal drainage, Muffled voice, Hoarse voice Neck: Positive: Supple Respiratory: Positive: Lungs clear, Normal breath sounds, No respiratory distress, No accessory muscle use Cardiovascular: Positive: RRR, No Murmur Musculoskeletal: Negative: Strength Intact, ROM Intact Neurological Exam: Normal Psychological Exam: Normal Skin Exam: Normal Images Front/Back of Body, Lg ([place]): 1 - palpable fluid collection/not red or warm Diagnostics - Radiology No standard instances Radiology Interpretation Completed By: Radiologist Summary of Radiographic Findings: NO ACUTE OSSEOUS INJURY. IF SYMPTOMS PERSIST, RECOMMEND REPEAT IMAGING. #. At the level of clinical concern there is asymmetric prominence of the LEFT tibialis. anterior muscle compared with the contralateral side. The muscle appears. enlarged/hypertrophy with the contralateral side. No discrete muscle fascia herniation. evident. No intramuscular lesions evident. Unremarkable overlying subcutaneous and dermal. tissue planes. Course/Dx - Diagnoses Provider Diagnosis: Localized swelling, mass and lump, left lower limb Discharge - Sign-Out/Discharge Documenting (check all that apply): Patient Departure All imaging exams completed and their final reports reviewed: Yes - Discharge Plan Condition: Stable Disposition: HOME Referrals: Tatiana Bellamy MD [Primary Care Provider] - 5 Days (recheck in 5-7 days) Additional Instructions: #. At the level of clinical concern there is asymmetric prominence of the LEFT tibialis anterior muscle compared with the contralateral side. The muscle appears enlarged/hypertrophy with the contralateral side. No discrete muscle fascia herniation evident. No intramuscular lesions evident. Unremarkable overlying subcutaneous and dermal tissue planes. NO ACUTE OSSEOUS INJURY. IF SYMPTOMS PERSIST, RECOMMEND REPEAT IMAGING Ector's lump noted on left michael appears to be hypertrophied muscle they saw no abscess/fluid collection , or herniated muscle recheck for pain/overlying redness or warmth - Billing Disposition and Condition Condition: STABLE Disposition: Home
== END 2018-12-08 13:59 | disposition home or self-care (01) ==
LOC: UCEAST 11:51
DX: R22.42 Localized swelling, mass and lump, left lower limb (principal); E03.9 Hypothyroidism, unspecified; G40.909 Epilepsy, unspecified, not intractable, without status epilepticus; Z86.73 Personal history of transient ischemic attack (TIA), and cerebral infarction without residual deficits; Z91.040 Latex allergy status
CPT/HCPCS: 99212; G0463

== ENCOUNTER 2019-01-27 13:07 | Emergency (ER) | payer MEDICAID ==
--- OUTSIDE RECORDS SUMMARY | 2019-01-27 13:33 | XMS REPORT | Continuity of Care Document ---
:1985 External Reference #:[id number] Author Name Ruby Dick O.D. (transmitted by agent of provider Marzena Guadalupe) Address [address] [place] [address] Care Team Providers Name Role Phone Tatiana Hurst M.D. - Family Medicine Care Team Information Assistant Manager [employer]side Operations Problems Active Problems Provider Date Constipation Ruby Dick O.D. Onset: 12/04/2014 Incontinence Ruby Dick O.D. Onset: 12/04/2014 Hypogonadism Ruby Dick O.D. Onset: 12/04/2014 Hypothyroidism Ruby Dick O.D. Onset: 12/04/2014 Osteoporosis Ruby Dick O.D. Onset: 12/04/2014 Seizure disorder Ruby Dick O.D. Onset: 12/04/2014 Hemiplegia Ruby Dick O.D. Onset: 12/04/2014 Insomnia Ruby Dick O.D. Onset: 12/04/2014 Anemia Ruby Dick O.D. Onset: 12/04/2014 O/E - general eye examination Ruby Dick O.D. Onset: 12/23/2018 Anisometropia Ruby Dick O.D. Onset: 12/05/2014 Social History Type Date Description Comments Sex Unknown ETOH Use Denies alcohol use Tobacco Use Start: Unknown Patient has never smoked Smoking Status Reviewed: 12/23/18 Patient has never smoked Allergies, Adverse Reactions, Alerts Active Allergies Reaction Severity Comments Date Topamax 12/05/2014 Medications Active Medications SIG Qnty Indications Ordering Provider Date Acetaminophen-Codeine Unknown #3 300-30mg Tablets Acyclovir Unknown 400mg Tablets Bacitracin (External) Unknown 500Unit/GM Ointment Vitamin A & D Unknown Ointment Desitin Unknown 40% Ointment Ibuprofen as needed Unknown 200mg Capsules Clonazepam Unknown 1mg Tablets Dispers Probiotic Unknown Capsules Zonisamide Unknown 100mg Capsules Oyster Shell Calcium Unknown 500mg Tablets Trileptal Unknown 300mg Tablets Levothyroxine Sodium Unknown 50mcg Tablets Maalox Unknown 600mg [place]wt[place] Mineral Oil Unknown 55% Oil Robitussin Chest Unknown Congestion 100mg/5ML Syrup Biscolax Unknown 10mg Suppository Bacitracin apply as directed Unknown 500Unit/GM right eyelids Ointment every night at bedtime Apap Unknown 325mg Tablets Vitamin D3 Complete Unknown Tablets Temazepam Unknown 15mg Capsules Miralax Unknown 3350NF Packet Immunizations Description No Information Available Vital Signs Description No Information Available Results Description No Information Available Procedures Description No Information Available Medical Devices Description No Information Available Encounters Description No Information Available Assessments Date Code Description Provider 12/23/2018 Z01.00 Encounter for examination of eyes and vision Ruby Dick O.D. without abnormal findings Plan of Treatment 12/23/2018 - Ruby Dick O.D.Z01.00 Encounter for examination of eyes and vision without abnormal findingsComments:Smoking can increase the risk of developing or worsening any eye related disease, as well as affect your overall health. If you are a smoker, we strongly recommend that you quit.If you are not a smoker, we strongly recommend that you do not start.Follow up:as needed Functional Status Description No Information Available Mental Status Description No Information Available Referrals Description No Information Available
--- OUTSIDE RECORDS SUMMARY | 2019-01-27 13:33 | XMS REPORT | Continuity of Care Document ---
:1985 External Reference #:[id number] Author Name Ruby Dick O.D. (transmitted by agent of provider Marzena Guadalupe) Address [address] [place] [address] Care Team Providers Name Role Phone Tatiana Hurst M.D. - Family Medicine Care Team Information General Education Professor [phone] Problems Active Problems Provider Date Constipation Ruby [...]
--- OUTSIDE RECORDS SUMMARY | 2019-01-27 13:33 | XMS REPORT | Continuity of Care Document ---
:1985 External Reference #:[id number] Author Name Ruby Dick O.D. Address [address] [place] [address] Care Team Providers Name Role Phone Tatiana Hurst M.D. - Family Medicine Care Team Information Product Development Technician [phone] Problems Active Problems Provider Date Constipation Ruby [...]
[2019-01-27 13:44] VITALS: BP 140/104
--- NOTE | 2019-01-27 13:55 | UC ---
Respiratory Complaint HPI - HPI Summary HPI Summary: Ector has had a cough for about a week. Sometimes his face turns red. He also has a sore spot on his right foot. They are ordering new shoes for him and he is wearing slippers at this time. - History of Current Complaint Chief Complaint: UCRespiratory Stated Complaint: cough Time Seen by Provider: 01/27/19 13:41 Hx Obtained From: Family/Child Nurse Onset/Duration: Gradual Onset Timing: Intermittent Episodes Severity Initially: Mild Pain Intensity: 0 Character: Cough: Nonproductive - Allergies/Home Medications Allergies/Adverse Reactions: Allergies Allergy/AdvReac Type Severity Reaction Status Date / Time latex Allergy Blisters Verified 01/27/19 13:44 topiramate [From Topamax] Allergy GI Upset Verified 01/27/19 13:44 BANDAIDS Allergy Severe Blisters Uncoded 01/27/19 13:44 PMH/Surg Hx/FS Hx/Imm Hx - Additional Past Medical History Additional PMH: Severe intellectual disability. Intractable seizures. Spastic quadriplegia Previously Healthy: No - Surgical History Surgical History: Yes Surgery Procedure, Year, and Place: HEAD, FEET, 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 R knee surgery, R foot surgery. - Family History Known Family History: Positive: Unknown - pt with MR,CP, resident of [facility] , no family to provide history Family History: UNKNOWN: as above, and aide also not able to provide family history, and no family history noted in records, pt's book or [facility] records. LEVEL 5 caveat - Social History Alcohol Use: None Substance Use Type: None Smoking Status (MU): Never Smoked Tobacco Review of Systems All Other Systems Reviewed And Are Negative: Yes Constitutional: Positive: Negative Skin: Positive: Other - Sore on right foot Respiratory: Positive: Cough Physical Exam - Summary Physical Exam Summary: He is not toxic in appearance and his vitals are good aside from hypertension. Triage Information Reviewed: Yes Appearance: Well-Appearing Vital Signs: Initial Vital Signs Temp 96.4 F 01/27/19 13:37 Pulse 72 01/27/19 13:37 Resp 16 01/27/19 13:37 BP 140/104 01/27/19 13:37 Pulse Ox 98 01/27/19 13:37 Vital Signs Reviewed: Yes ENT Exam: Normal Neck exam: Normal Respiratory Exam: Normal - Not taking good breaths for me Cardiovascular Exam: Normal Skin Exam: Normal - He is small ulcer on his right dorsal foot Respiratory Course/Dx - Course Course Of Treatment: I think symptomatic treatment and protection of the foot ulcer is all it's needed at this point. - Differential Dx/Diagnosis Provider Diagnosis: Foot ulcer, Cough Discharge ED - Sign-Out/Discharge Documenting (check all that apply): Patient Departure All imaging exams completed and their final reports reviewed: Yes - Discharge Plan Condition: Stable Disposition: HOME Patient Education Materials: Acute Wound Care (ED) Referrals: Tatiana Bellamy MD [Primary Care Provider] - - Billing Disposition and Condition Condition: STABLE Disposition: Home
== END 2019-01-27 14:48 | disposition home or self-care (01) ==
LOC: UCEAST 13:07
DX: R05 Cough (principal); L97.519 Non-pressure chronic ulcer of other part of right foot with unspecified severity; F72 Severe intellectual disabilities; Z91.040 Latex allergy status; Z91.09 Other allergy status, other than to drugs and biological substances; Z88.8 Allergy status to other drugs, medicaments and biological substances
CPT/HCPCS: 71046; 99212; G0463

== ENCOUNTER 2019-01-31 10:20 | Emergency (ER) | payer MEDICAID ==
[2019-01-31 11:14] VITALS: BP 116/67
--- NOTE | 2019-01-31 11:42 | UC ---
Skin Complaint HPI - HPI Summary HPI Summary: 33-year-old male who is nonverbal and wheelchair bound brought in by his caregivers for a right foot wound which has not been healing. The caregivers believe this is caused by shoes that don't fit well and he has recently been fitted for new shoes but has not started using them yet. No fever or chills. He has had a cough over the past week. He had a chest x-ray 4 days ago which was negative. He's had a continued dry cough but no fever and no worsening of symptoms. - History of Current Complaint Chief Complaint: UCGeneralIllness Time Seen by Provider: 01/31/19 10:56 Stated Complaint: cough, AMD SORE ON FOOT Hx Obtained From: Family/Machine Shop Worker Onset/Duration: Gradual Onset Skin Exposure Onset/Duration: Days Ago Timing: Constant Onset Severity: Mild Current Severity: Moderate Pain Intensity: 8 Location: Foot (Right) Character: Swelling, Redness, Painful - Patient reacts when foot is palpated. Aggravating Factor(s): Nothing Alleviating Factor(s): Nothing Associated Signs & Symptoms: Positive: Negative - Allergy/Home Medications Allergies/Adverse Reactions: Allergies Allergy/AdvReac Type Severity Reaction Status Date / Time latex Allergy Blisters Verified 01/31/19 10:58 topiramate [From Topamax] Allergy GI Upset Verified 01/31/19 10:58 BANDAIDS Allergy Severe Blisters Uncoded 01/31/19 10:58 PMH/Surg Hx/FS Hx/Imm Hx Previously Healthy: Yes Endocrine History: Thyroid Disease - Surgical History Surgical History: Yes Surgery Procedure, Year, and Place: HEAD, FEET, 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 R knee surgery, R foot surgery. - Family History Known Family History: Positive: Unknown - [facility] with MR,CP, [facility] , no family to provide history Family History: UNKNOWN: as above, and aide also not able to provide family history, and no family history noted in records, pt's book or [facility] records. LEVEL 5 caveat - Social History Alcohol Use: None Substance Use Type: None Smoking Status (MU): Never Smoked Tobacco Review of Systems All Other Systems Reviewed And Are Negative: Yes Respiratory: Positive: Cough - Nonproductive dry cough which has continued over the past week. Negative chest x-ray 4 days ago, but no worsening of symptoms and no fever. Motor: Positive: Other - Motor skills per his norm. Neurovascular: Positive: Other - Patient normally has decreased sensation to his extremities however he does react with pain when his foot is palpated. Musculoskeletal: Positive: Other: - Mild swelling of right foot which can be normal for this patient when he does not elevated appropriately according to staff. Psychological: Positive: Other - Patient is interacting per his norm. Is Patient Immunocompromised?: No Physical Exam Triage Information Reviewed: Yes Appearance: Well-Appearing, No Pain Distress, Well-Nourished Vital Signs: Initial Vital Signs Temp 98.1 F 01/31/19 11:02 Pulse 78 01/31/19 11:02 Resp 16 01/31/19 11:02 BP 116/67 01/31/19 11:02 Pulse Ox 99 01/31/19 11:02 Vital Signs Reviewed: Yes Respiratory: Positive: Lungs clear, Normal breath sounds, No respiratory distress, No accessory muscle use Cardiovascular: Positive: RRR, No Murmur, Pulses Normal, Brisk Capillary Refill Musculoskeletal: Positive: Strength Limited @, ROM Limited @, Other: - Patient is moving per his norm. Neurological: Positive: Other: - Patient does react with pain when his foot is palpated. He reacts when his toes are tickled. Psychological: Positive: Normal Response To Family - He is responding normally per his norm. Skin: Positive: Other - Patient has a small scabbed area approximately 3 mm in diameter to his right foot. No drainage. The foot itself is mildly erythematous but not warm to touch. He has good peripheral pulses neuro sensation and capillary refill. Course/Dx - Course Course Of Treatment: Right foot x-ray:FINDINGS: There is diffuse soft tissue swelling. The patient is status post amputation of the second toe at the level of the distal aspect of the proximal phalanx. No erosive changes or periosteal reaction is seen. IMPRESSION: SOFT TISSUE SWELLING, NO SPECIFIC EVIDENCE FOR OSTEOMYELITIS. IF THERE IS A HIGH CLINICAL INDEX OF SUSPICION FOR OSTEOMYELITIS CONSIDER AN MRI STUDY WITHOUT CONTRAST OR A THREE-PHASE BONE SCAN. I'm going to start patient on Augmentin which will also cover anything in the lungs since he's continued to have the cough although he's had no fever site think that's probably still all viral. They are to follow-up with either a foot doctor or orthopedist if no improvement in the foot or if worsening symptoms over the next few days. - Diagnoses Provider Diagnosis: Cellulitis of foot, URI (upper respiratory infection) Discharge ED - Sign-Out/Discharge Documenting (check all that apply): Patient Departure All imaging exams completed and their final reports reviewed: Yes - Discharge Plan Condition: Fair Disposition: HOME Prescriptions: Amoxicillin/Clavulanate TAB* [Augmentin TAB 875*] 875 mg PO BID 10 Days #20 tab Patient Education Materials: Cellulitis (DC) Referrals: Tatiana Bellamy MD [Primary Care Provider] - Additional Instructions: Elevate foot as much as possible. May try warm moist towels 4-6 times a day for 20 minutes each time. Definite follow-up with your primary care provider for recheck either the end of this week or early next week. Take the antibiotic with food. Definite follow-up in the emergency room if any fever, chills, red streaks up the leg or worsening symptoms. - Billing Disposition and Condition Condition: FAIR Disposition: Home
== END 2019-01-31 12:40 | disposition home or self-care (01) ==
LOC: UCEAST 10:20
DX: L03.115 Cellulitis of right lower limb (principal); J06.9 Acute upper respiratory infection, unspecified; Z88.8 Allergy status to other drugs, medicaments and biological substances; Z91.040 Latex allergy status; Z91.09 Other allergy status, other than to drugs and biological substances
CPT/HCPCS: 99212; G0463

== ENCOUNTER 2019-02-05 08:52 | Emergency (ER) | payer MEDICAID ==
[2019-02-05 09:28] VITALS: BP 112/82
--- NOTE | 2019-02-05 09:31 | UC ---
General HPI - HPI Summary HPI Summary: Ector was brought back because he hasn't been eating well the last day or so and they noticed a white coating on his tongue. He has seemed happy to them and in his normal state of mind. - History of Current Complaint Chief Complaint: UCGeneralIllness Stated Complaint: WHITE PATCHES ON TONGUE Time Seen by Provider: 02/05/19 09:18 Pain Intensity: 0 - Allergy/Home Medications Allergies/Adverse Reactions: Allergies Allergy/AdvReac Type Severity Reaction Status Date / Time latex Allergy Blisters Verified 01/31/19 10:58 topiramate [From Topamax] Allergy GI Upset Verified 01/31/19 10:58 BANDAIDS Allergy Severe Blisters Uncoded 01/31/19 10:58 PMH/Surg Hx/FS Hx/Imm Hx - Surgical History Surgical History: Yes Surgery Procedure, Year, and Place: HEAD, FEET, 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 R knee surgery, R foot surgery. - Family History Known Family History: Positive: Unknown - pt with MR,CP, resident of [facility] , no family to provide history Family History: UNKNOWN: as above, and aide also not able to provide family history, and no family history noted in records, pt's book or [facility] records. LEVEL 5 caveat - Social History Alcohol Use: None Substance Use Type: None Smoking Status (MU): Never Smoked Tobacco Review of Systems All Other Systems Reviewed And Are Negative: Yes Constitutional: Positive: Negative Skin: Positive: Other - He has an ulcer on his toe. Respiratory: Positive: Cough Physical Exam - Summary Physical Exam Summary: He is nontoxic in appearance is stable vitals. He is happy and playing with his rattle. Triage Information Reviewed: Yes Appearance: Well-Appearing Vital Signs: Initial Vital Signs Temp 97.4 F 02/05/19 08:58 Pulse 88 02/05/19 08:58 Resp 18 02/05/19 08:58 BP 88/69 02/05/19 08:58 Pulse Ox 97 02/05/19 08:58 Vital Signs Reviewed: Yes ENT Exam: Other - His tongue is coated and erythematous. Respiratory Exam: Normal Course/Dx - Course Course Of Treatment: I think is gotten a little thrush from the antibiotics. I'm going to give him a dose of Diflucan now to give him some relief so he can eat and a dose for a week from now after he stopped the antibiotics. - Diagnoses Provider Diagnosis: Thrush, oral Discharge ED - Sign-Out/Discharge Documenting (check all that apply): Patient Departure All imaging exams completed and their final reports reviewed: No Studies - Discharge Plan Condition: Stable Disposition: HOME Patient Education Materials: Oral Candidiasis (ED) Referrals: Tatiana Bellamy MD [Primary Care Provider] - - Billing Disposition and Condition Condition: STABLE Disposition: Home
== END 2019-02-05 09:40 | disposition home or self-care (01) ==
LOC: UCEAST 08:52
DX: K13.29 Other disturbances of oral epithelium, including tongue (principal); B37.0 Candidal stomatitis; L97.509 Non-pressure chronic ulcer of other part of unspecified foot with unspecified severity; Z88.8 Allergy status to other drugs, medicaments and biological substances; Z91.040 Latex allergy status
CPT/HCPCS: 99212; G0463

== ENCOUNTER 2019-02-18 19:50 | Emergency (ER) | payer MEDICAID ==
--- NOTE | 2019-02-18 20:42 | ED ---
Seizure - HPI Summary HPI Summary: Patient with history of nonverbal developmental delay and right-sided focal seizures presents by EMS for recurring right-sided focal seizures starting at 6 PM this evening. Per caregiver on developmental services protocol is to give clonazepam 1 mg ODT every 5 minutes up to 3 doses for recurring symptoms then sent patient to ED if symptoms continue after 20 minutes. Caregiver denies change from patient baseline prior to onset of seizures, denies any symptoms of illness. Caregiver states patient has had no seizures here in the ED, is currently at baseline behavior. Caregiver states patient's right-sided focal seizures involve contraction of right shoulder up to right ear. - History Of Current Complaint Chief Complaint: EDSeizure Time Seen by Provider: 02/18/19 20:39 Hx Obtained From: Family/Phlebotomy Director Onset/Duration: Sudden Onset Location Of Seizure: Focal Movement(s) Aggravating Factor(s): Nothing Alleviating Factor(s): Other Associated Signs And Symptoms: Negative - Allergies/Home Medications Allergies/Adverse Reactions: Allergies Allergy/AdvReac Type Severity Reaction Status Date / Time latex Allergy Blisters Verified 02/18/19 20:04 topiramate [From Topamax] Allergy GI Upset Verified 02/18/19 20:04 BANDAIDS Allergy Severe Blisters Uncoded 01/31/19 10:58 PMH/Surg Hx/FS Hx/Imm Hx Endocrine/Hematology History: Reports: Hx Thyroid Disease - HYPO Denies: Hx Diabetes Cardiovascular History: Denies: Hx Hypertension Respiratory History: Reports: Other Respiratory Problems/Disorders - sinusitis Denies: Hx Asthma, Hx Chronic Obstructive Pulmonary Disease (COPD), Hx Pneumonia GI History: Reports: Other GI Disorders - constipation Denies: Hx Ulcer Musculoskeletal History: Reports: Other Musculoskeletal History - Osteoporosis; Hemiparesis of RUE. 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 R knee surgery, R foot surgery. Infectious Disease History: No Infectious Disease History: Denies: Hx Hepatitis, Hx Human Immunodeficiency Virus (HIV), Traveled Outside the [place] in Last 30 Days - Family History Known Family History: Positive: Unknown - pt with [facility]CP, [facility] , no family to provide history Family History: UNKNOWN: as above, and aide also not able to provide family history, and no family history noted in records, pt's book or [facility] records. LEVEL 5 caveat - Social History Alcohol Use: None Hx Substance Use: No Substance Use Type: Reports: None Hx Tobacco Use: No Smoking Status (MU): Never Smoked Tobacco Review of Systems Constitutional: Negative Eyes: Negative ENT: Negative Cardiovascular: Negative Respiratory: Negative Gastrointestinal: Negative Genitourinary: Negative Musculoskeletal: Negative Skin: Negative Neurological: Negative Psychological: Normal All Other Systems Reviewed And Are Negative: Yes Physical Exam - Summary Physical Exam Summary: No evidence of trauma. Abdomen soft nontender. Lung sounds clear to auscultation bilaterally. Patient playing with toy which caregiver states is baseline. Triage Information Reviewed: Yes Vital Signs On Initial Exam: Initial Vitals Temp Pulse Resp BP Pulse Ox 98.3 F 76 18 116/82 97 02/18/19 19:59 02/18/19 19:59 02/18/19 19:59 02/18/19 19:59 02/18/19 19:59 Vital Signs Reviewed: Yes Appearance: Positive: Well-Appearing Skin: Positive: Warm Head/Face: Positive: Normal Head/Face Inspection Eyes: Positive: Normal ENT: Positive: Normal ENT inspection Neck: Positive: Supple Respiratory/Lung Sounds: Positive: Clear to Auscultation Cardiovascular: Positive: Normal Abdomen Description: Positive: Nontender Musculoskeletal: Positive: Normal Neurological: Positive: Normal Psychiatric: Positive: Normal AVPU Assessment: Alert Procedures - Sedation Patient Received Moderate/Deep Sedation with Procedure: No Diagnostics - Vital Signs Vital Signs Temp Pulse Resp BP Pulse Ox 02/18/19 19:59 98.3 F 76 18 116/82 97 - Laboratory Result Diagrams: 02/18/19 20:51 02/18/19 20:51 Lab Statement: Any lab studies that have been ordered have been reviewed, and results considered in the medical decision making process. Course/Dx - Course Course Of Treatment: Patient with history of nonverbal developmental delay and right-sided focal seizures presents by EMS for recurring right-sided focal seizures starting at 6 PM this evening. Per caregiver on developmental services protocol is to give clonazepam 1 mg ODT every 5 minutes up to 3 doses for recurring symptoms then sent patient to ED if symptoms continue after 20 minutes. Caregiver denies change from patient baseline prior to onset of seizures, denies any symptoms of illness. Caregiver states patient has had no seizures here in the ED, is currently at baseline behavior. Caregiver states patient's right-sided focal seizures involve contraction of right shoulder up to right ear. Vital signs within normal limits. Labs unremarkable. No seizures here in the ED. Per caregiver patient is receiving Keppra 2000 mg in a.m. and p.m. Patient has not had p.m. meds. Patient given Keppra 2000 mg by mouth here in the ED. Evening meds will be given to patient when he returns. Discussed patient with attending Dr. Lesli Fisher who agreed patient to be discharged. - Diagnoses Provider Diagnoses: Seizures Discharge ED - Sign-Out/Discharge Documenting (check all that apply): Patient Departure - Discharge Plan Condition: Stable Disposition: INTERMEDIATE CARE FACILITY Referrals: Tatiana Bellamy MD [Primary Care Provider] - Tono Dias MD [Medical Doctor] - Additional Instructions: Follow-up with patient's neurologist or with neurologist Dr. Dias. Return to the ED for any new or worsening symptoms. - Billing Disposition and Condition Condition: STABLE Disposition: Intermediate Care Facility - Attestation Statements Provider Attestation: I have seen the patient with the JENY and agree with the plan and documentation below except as noted: 33-year-old male history of developmental delay and seizures brought in for focal seizures at home. No recurrent seizure activity in the emergency department. Patient was keppra loaded. No signs of infection or trauma on exam. Ani Vera MD
[2019-02-18 20:57] LABS: ABS Basophils 0.1 10^3/ul (0-0.2); ABS Eosinophils 0.1 10^3/ul (0-0.6); ABS Lymphocytes 2.2 10^3/ul (1.0-4.8); ABS Monocytes 0.6 10^3/ul (0-0.8); Eosinophil % 1.5 %; Hematocrit 44 % (42-52); Hemoglobin 15.3 g/dL (14.0-18.0); Lymphocyte % 36.8 %; Mean Corpuscular HGB Conc 35 g/dL (31-36); Mean Corpuscular Hemoglobin 32 pg (27-31); Mean Corpuscular Volume 92 fL (80-94); Mean Platelet Volume 8.1 fL (7.4-10.4); Nucleated Red Blood Cells % 0.1; Platelet Count 259 10^3/uL (150-450); Red Blood Count 4.76 10^6 /uL (4.18-5.48); Red Cell Distribution Width 13 % (10-15)
[2019-02-18 21:16] LABS: Albumin 4.3 g/dL (3.2-5.2); Albumin/Globulin Ratio 1.4 (1-3); BUN/Creatinine Ratio 30.9 (8-20); C Reactive Protein 1.9 mg/L (<8.01); Calcium 9.7 mg/dL (8.6-10.3); EGFR African American 206.3 (>60); EGFR Non-African American 170.5 (>60); Globulin 3.1 g/dL (2-4); Potassium 3.5 mmol/L (3.5-5.0); Total Bilirubin 0.2 mg/dL (0.2-1.0); Total Protein 7.4 g/dL (6.4-8.9)
[2019-02-18] MEDS ORDERED: levETIRAcetam TAB* 500 MG PO ONE (21:42)
[2019-02-18 22:15] VITALS: BP 94/67
== END 2019-02-18 22:15 ==
LOC: ED 19:50
DX: R56.9 Unspecified convulsions (principal); E03.9 Hypothyroidism, unspecified; Z88.8 Allergy status to other drugs, medicaments and biological substances; Z91.040 Latex allergy status; Z79.899 Other long term (current) drug therapy; Z79.890 Hormone replacement therapy
CPT/HCPCS: 36415; 80053; 85025; 86140; 99282; A9270-GY

== ENCOUNTER 2019-03-29 10:05 | Emergency (ER) | payer MEDICAID ==
--- OUTSIDE RECORDS SUMMARY | 2019-03-29 10:15 | XMS REPORT | Continuity of Care Document ---
:1985 External Reference #:[id number] Author Name Ashkan Panda NP (transmitted by agent of provider Racheal Thomas) Address [address], [place] [address] Problems Active Problems Provider Date Localization-related epilepsy Armand Rodgers M.D. Onset: 01/18/2015 Epilepsy characterized by intractable Deisy Duran MD Onset: 05/14/2015 complex partial seizures Traumatic brain injury Deisy Duran MD Onset: 07/20/2016 Taking medication Deisy Duran MD Onset: 07/20/2016 Hypervitaminosis D Deisy Duran MD Onset: 01/20/2017 Seizure REED Costa Onset: 10/21/2017 Hypothyroidism REED Costa Onset: 10/21/2017 Severe intellectual disability REED Costa Onset: 10/21/2017 Congenital quadriplegia REED Costa Onset: 10/21/2017 Social History Type Date Description Comments Sex Unknown ETOH Use Never used alcohol Tobacco Use Start: Unknown Patient has never smoked Smoking Status Reviewed: 03/08/19 Patient has never smoked Allergies, Adverse Reactions, Alerts Active Allergies Reaction Severity Comments Date Plastic Tape Blisters 07/12/2013 Topamax GI UPSET, WEIGHT LOSS 07/12/2013 Medications Active Medications SIG Qnty Indications Ordering Date Provider Keppra Take 5 tablets by 300tabs Armand Mason 03/08/2019 500mg Tablets mouth twice a day Branden Rodgers Clonazepam take 1 sublingual 10tabs Armand Mason 03/08/2019 1mg as needed for focal Branden Rodgers Tablets Dispers motor seizure lasting more than 5 mins, may repeat in 5 mins x2 if needed if rr>10bpm Zonisamide 4 tablets twice a 240caps G40.219 Armand PeoplesThea 02/08/2015 100mg day Branden Rodgers Capsules Ibuprofen 200 2 tab every 4 hours Unknown 200mg as needed for pain Tablets Augmentin one by mouth every Unknown 875-125mg 12 hours Tablets Milk Of Magnesia 30 milliliters by Unknown mouth every day as 400mg/5ML Suspension needed Enema As directed Unknown 7-19GM/118ML Enema Colace 1 tab by mouth 2-3 Unknown 100mg Capsules times a day as needed Vitamin D3 1 chew by mouth 30units Armand PeoplesThea 1000Unit once a day Branden Rodgers Chewtabs Debrox 1-2 drops in Unknown 6.5% Solution affacted ear the night before shower, rince out Peridex 15 milliliters Unknown 0.12% swish and spit Solution twice a day Robitussin 5-10mL po 4 q4h prn Unknown Mucus+Chest Congestion 100mg/5ML Liquid Acetaminophen insert 1 rectally Unknown 650mg every 4 hours as Suppository needed for fever >101 Acyclovir take 1 tablet by Unknown 400mg mouth tid prn Tablets Probiotic 1 by mouth every Unknown Capsules day Desitin 3x daily to Unknown irritated area until healed A&D Ointments prn Unknown Maalox 2 tsp po prn Unknown Chewtabs between meals Mineral Oil instill 3 drops Unknown Oil each ear every week (break up wax) prn Temazepam 2 caps 2 hrs before Unknown 15mg medical Capsules appointments Biscodyl 10mg rectally prn Unknown 10mg constipation Suppository Bacitracin topical prn minor 30gm Unknown 500Unit/GM cuts, abrasions, Ointment insect bites Acetaminophen 2 tab po q 4h prn Unknown 325mg pain, discomfort, Tablets fever > 101F Miralax 17 gm mixed w/ 8 oz 238gm Unknown 3350NF Powder water/juice bid Trileptal 3 tabs po bid 180tabs Armand S. 300mg Branden Rodgers Tablets Oyster Shell qd Unknown 500mg Tablets Levothyroxine Sodium 1 by mouth every 30tabs Unknown day 88mcg Tablets Immunizations Description No Information Available Vital Signs Date Vital Result Comment 03/08/2019 11:17am Height 62 inches 5'2" Wheelchair. Weight 153.31 lb Heart Rate 80 /min BP Systolic 114 mmHg BP Diastolic 68 mmHg BMI (Body Mass Index) 28.0 kg/m2 08/24/2018 10:19am Height 62 inches 5'2" Wheelchair. Weight 152.00 lb Heart Rate 78 /min BP Systolic Sitting 120 mmHg BP Diastolic Sitting 70 mmHg Respiratory Rate 18 /min BMI (Body Mass Index) 27.8 kg/m2 Results Test Acquired Date Facility Test Result H/L Range Note Laboratory test 02/23/2019 [facility] Levetiracetam 38.4 g/mL 1, 2 [address] ([facility] [place] [address] [phone] Trileptal (Oxcarbazepine) 25 g/mL 3 - 35 3 Zonisamide 13 g/mL 10-40 4 Laboratory test 01/12/2019 [facility] Levetiracetam 22.8 g/mL 5, 6 finding [facility] [address] ([facility]) [place] [address] [phone] Trileptal (Oxcarbazepine) 26 g/mL 3 - 35 7 Zonisamide 15 g/mL 10-40 8 CBC Auto 01/12/2019 [facility] White Blood 5.5 10^3/uL Normal 3.5-10.[address] [place] [address] [phone] Red Blood Count 5.02 10^6/uL Normal 4.18-5.48 Hemoglobin 16.2 g/dL Normal 14.0-18.0 Hematocrit 47 % Normal 42-52 Mean Corpuscular Volume 94 fL Normal 80-94 Mean Corpuscular Hemoglobin 32 pg High 27-31 Mean Corpuscular HGB Conc 34 g/dL Normal 31-36 Red Cell Distribution Width 13 % Normal 10-15 Platelet Count 281 10^3/uL Normal 150-450 Mean Platelet Volume 9.4 fL Normal 7.4-10.4 Abs Neutrophils 3.0 10^3/uL Normal 1.5-7.7 Abs Lymphocytes 1.8 10^3/uL Normal 1.0-4.8 Abs Monocytes 0.5 10^3/uL Normal 0-0.8 Abs Eosinophils 0.1 10^3/uL Normal 0-0.6 Abs Basophils 0.0 10^3/uL Normal 0-0.2 Abs Nucleated RBC 0.0 10^3/uL Granulocyte % 55.5 % Lymphocyte % 33.1 % Monocyte % 9.3 % Eosinophil % 1.2 % Basophil % 0.9 % Nucleated Red Blood Cells % 0.0 Comp Metabolic 01/12/2019 [facility] Sodium 140 mmol/L Normal 135-[address] [place] [address] [phone] Potassium 4.3 mmol/L Normal 3.5-5.0 Chloride 106 mmol/L Normal 101-111 Co2 Carbon Dioxide 28 mmol/L Normal 22-32 Anion Gap 6 mmol/L Normal 2-11 Glucose 83 mg/dL Normal 70-100 Blood Urea Nitrogen 13 mg/dL Normal 6-24 Creatinine 0.62 mg/dL Low 0.67-1.17 BUN/Creatinine Ratio 21.0 High 8-20 Calcium 9.7 mg/dL Normal 8.6-10.3 Total Protein 7.2 g/dL Normal 6.4-8.9 Albumin 4.5 g/dL Normal 3.2-5.2 Globulin 2.7 g/dL Normal 2-4 Albumin/Globulin Ratio 1.7 Normal 1-3 Total Bilirubin 0.30 mg/dL Normal 0.2-1.0 Alkaline Phosphatase 90 U/L Normal 34-104 Alt 37 U/L Normal 7-52 Ast 18 U/L Normal 13-39 Egfr Non- 148.5 >60 Egfr 179.7 >60 9 1 Please obtain in 1-2 months after Keppra level.[id number].[id number] 2 REFERENCE VALUE 12.0 - 46.0 ADDITIONAL INFORMATION This test was developed and its performance characteristics determined by [facility] in a manner consistent with CLIA requirements. This test has not been cleared or approved by the U.S. Food and Drug Administration. Test Performed by: [facility] [address] Machine Cloth Measurer: Tez Farley M.D. Ph.D.; CLIA# [id number] 3 ADDITIONAL INFORMATION This test was developed and its performance characteristics determined by [facility] in a manner consistent with CLIA requirements. This test has not been cleared or approved by the U.S. Food and Drug Administration. Test Performed by: [facility] [address] Machine Cloth Measurer: Tez Farley M.D. Ph.D.; CLIA# [id number] 4 ADDITIONAL INFORMATION This test was developed and its performance characteristics determined by [facility] in a manner consistent with CLIA requirements. This test has not been cleared or approved by the U.S. Food and Drug Administration. Test Performed by: [facility] [address] Machine Cloth Measurer: Tez Farley M.D. Ph.D.; CLIA# [id number] 5 [id number] 6 REFERENCE VALUE 12.0 - 46.0 ADDITIONAL INFORMATION This test was developed and its performance characteristics determined by [facility] in a manner consistent with CLIA requirements. This test has not been cleared or approved by the U.S. Food and Drug Administration. Test Performed by: [facility] [address] Machine Cloth Measurer: Tez Farley M.D. Ph.D.; CLIA# [id number] 7 ADDITIONAL INFORMATION This test was developed and its performance characteristics determined by [facility] in a manner consistent with CLIA requirements. This test has not been cleared or approved by the U.S. Food and Drug Administration. Test Performed by: [facility] [address] Machine Cloth Measurer: Tez Farley M.D. Ph.D.; CLIA# [id number] 8 ADDITIONAL INFORMATION This test was developed and its performance characteristics determined by [facility] in a manner consistent with CLIA requirements. This test has not been cleared or approved by the U.S. Food and Drug Administration. Test Performed by: [facility] [address] Machine Cloth Measurer: Tez Farley M.D. Ph.D.; CLIA# [id number] 9 Because ethnic data is not always readily [...] 15-29 5 Kidney failure <15 (or dialysis) Procedures Description No Information Available Medical Devices Description No Information Available Encounters Description No Information Available Assessments Date Code Description Provider 03/08/2019 G40.219 Localization-related (focal) (partial) symptomatic Ashkan Panda NP epilepsy 03/08/2019 F72 Severe intellectual disabilities Ashkan Panda NP 03/08/2019 Z87.820 Personal history of traumatic brain injury Ashkan Panda NP 03/08/2019 Z79.899 Other fpc (current) drug therapy Ashkan Panda NP Plan of Treatment Future Appointment(s):09/05/2019 9:30 am - Ashkan Panda NP at [facility]03/08/2019 - Ashkan Panda NPG40.219 Localization- related (focal) (partial) symptomatic dowyfmucX06 Severe intellectual wussgsqtgbjgV06.820 Personal history of traumatic brain dkyoyhA03.899 Other fpc (current) drug therapyFollow up:SIX MONTHS Functional Status Description No Information Available Mental Status Description No Information Available Referrals Description No Information Available
--- OUTSIDE RECORDS SUMMARY | 2019-03-29 10:15 | XMS REPORT | Continuity of Care Document ---
:1985 External Reference #:[id number] Author Name Ashkan Panda NP (transmitted by agent of provider Racheal Thomas) Address [address] [facility] [facility], [place] [address] Problems Active Problems Provider Date Localization-related epilepsy [...] Result H/L Range Note Laboratory test 02/23/2019 [facility] Levetiracetam 38.4 g/mL 1, 2 finding [address] ([facility] [place] [address] [phone] Trileptal (Oxcarbazepine) 25 g/mL 3 - 35 3 Zonisamide 13 g/mL 10-40 4 Laboratory test 01/12/2019 [facility] Levetiracetam 22.8 g/mL 5, 6 finding [facility] [address] ([facility] [place] [address] [phone] Trileptal (Oxcarbazepine) 26 g/mL 3 - 35 7 Zonisamide 15 g/mL 10-40 8 CBC Auto 01/12/2019 [facility] White Blood 5.5 10^3/uL Normal 3.5-10.8 Diff [address] [place] [address] [phone] Red Blood Count 5.02 10^6/uL Normal 4.18-5.48 [...] Blood Cells % 0.0 Comp Metabolic 01/12/2019 [facility] Sodium 140 mmol/L Normal 135-[address] [place] [address] [phone] Potassium 4.3 mmol/L Normal 3.5-5.0 Chloride 106 [...] Please obtain in 1-2 months after Keppra level.[id number].[id number] 2 REFERENCE VALUE 12.0 - 46.0 ADDITIONAL INFORMATION This test was developed and its performance characteristics determined by [facility] in a manner consistent with CLIA requirements. This test has not been cleared or approved by the U.S. Food and Drug Administration. Test Performed by: [facility] [place] [address] Train System Operator: Tez Farley M.D. Ph.D.; CLIA# [id number] 3 ADDITIONAL INFORMATION This test was developed and its performance characteristics determined by [facility] in a manner consistent with CLIA requirements. This test has not been cleared or approved by the U.S. Food and Drug Administration. Test Performed by: [facility] [place] [address] Train System Operator: Tez Farley M.D. Ph.D.; CLIA# [id number] 4 ADDITIONAL INFORMATION This test was developed and its performance characteristics determined by [facility] in a manner consistent with CLIA requirements. This test has not been cleared or approved by the U.S. Food and Drug Administration. Test Performed by: [facility] [place] [address] Train System Operator: Tez Farley M.D. Ph.D.; CLIA# [id number] 5 [id number] REFERENCE VALUE 12.0 - 46.0 ADDITIONAL INFORMATION This test was developed and its performance characteristics determined by [facility] in a manner consistent with CLIA requirements. This test has not been cleared or approved by the U.S. Food and Drug Administration. Test Performed by: [facility] [place] [address] Train System Operator: Tez Farley M.D. Ph.D.; CLIA# [id number] 7 ADDITIONAL INFORMATION This test was developed and its performance characteristics determined by [facility] in a manner consistent with CLIA requirements. This test has not been cleared or approved by the U.S. Food and Drug Administration. Test Performed by: [facility] [place] [address] Train System Operator: Tez Farley M.D. Ph.D.; CLIA# [id number] 8 ADDITIONAL INFORMATION This test was developed and its performance characteristics determined by [facility] in a manner consistent with CLIA requirements. This test has not been cleared or approved by the U.S. Food and Drug Administration. Test Performed by: [facility] [place] [address] Train System Operator: Tez Farley M.D. Ph.D.; CLIA# [id number] 9 Because ethnic data is not always [...] injury Ashkan Panda NP 03/08/2019 Z79.899 Other intermediate (current) drug therapy Ashkan Panda NP Plan of Treatment Future Appointment(s):09/06/2019 9:30 am - Ashkan Panda NP at [facility]03/08/2019 - Ashkan Panda NPG40.219 Localization- related (focal) (partial) symptomatic nyrxjzvxP85 Severe intellectual sgeocdhhglvaL12.820 Personal history of traumatic brain ywtionX89.899 Other intermediate (current) drug therapyFollow up:SIX MONTHS Functional Status Description No Information Available Mental Status Description No Information Available Referrals Description No Information Available
[2019-03-29 13:11] LABS: ABS Basophils 0.1 10^3/ul (0-0.2); ABS Eosinophils 0.1 10^3/ul (0-0.6); ABS Lymphocytes 2.1 10^3/ul (1.0-4.8); ABS Monocytes 0.6 10^3/ul (0-0.8); ABS Neutrophils 2.9 10^3/ul (1.5-7.7); Eosinophil % 1.6 %; Hematocrit 48 % (42-52); Hemoglobin 16.1 g/dL (14.0-18.0); Lymphocyte % 36.6 %; Mean Corpuscular HGB Conc 33 g/dL (31-36); Mean Corpuscular Hemoglobin 32 pg (27-31); Mean Corpuscular Volume 95 fL (80-94); Mean Platelet Volume 8.1 fL (7.4-10.4); Nucleated Red Blood Cells % 0.1; Platelet Count 261 10^3/uL (150-450); Red Blood Count 5.11 10^6 /uL (4.18-5.48); Red Cell Distribution Width 13 % (10-15); White Blood Count 5.7 10^3/uL (3.5-10.8)
[2019-03-29 13:31] LABS: ALT 24 U/L (7-52); Albumin 4.4 g/dL (3.2-5.2); Albumin/Globulin Ratio 1.3 (1-3); Alkaline Phosphatase 77 U/L (34-104); BUN/Creatinine Ratio 27.4 (8-20); Blood Urea Nitrogen 17 mg/dL (6-24); C Reactive Protein 2.67 mg/L (<8.01); CO2 Carbon Dioxide 22 mmol/L (22-32); Calcium 9.6 mg/dL (8.6-10.3); Chloride 107 mmol/L (101-111); EGFR African American 179.7 (>60); EGFR Non-African American 148.5 (>60); Globulin 3.4 g/dL (2-4); Glucose 96 mg/dL (70-100); Magnesium 2.1 mg/dL (1.9-2.7); Sodium 137 mmol/L (135-145); Total Protein 7.8 g/dL (6.4-8.9)
[2019-03-29 13:42] LABS: Anion Gap 8 mmol/L (2-11)
[2019-03-29 14:14] LABS: TSH (Thyroid Stimulating Horm) 0.73 mcIU/mL (0.34-5.60)
[2019-03-29] MEDS ORDERED: levETIRAcetam TAB* 500 MG PO ONE (15:47)
[2019-03-29] MEDS ORDERED: OXcarbazepine TAB(*) 300 MG PO ONE (15:47)
--- NOTE | 2019-03-29 16:19 | ED ---
Altered Mental Status - HPI Summary HPI Summary: 33 year old M w hx intellectual disability, seizures on keppra and trileptal, presenting to [facility] accompanied by female trade mark attorney complains of lethargy and altered mental status since waking up at 8:00 am 03/29/19. Baseline mental status is non-verbal. Strickler Attendant concerned about possibility of night seizure. Pt takes Keppra and trileptal for seizures, but refused medications this morning per trade mark attorney. Denies cough or fever. Hx of focal seizures for which he gets clonazepam for PRN. No known trauma. THE HPI IS LIMITED DUE TO LEVEL 5 CAVEAT-NON VERBAL STATUS. - History Of Current Complaint Chief Complaint: EDWeakness Stated Complaint: WEAKNESS NOT HIMSELF Time Seen by Provider: 03/29/19 15:13 Hx Obtained From: Patient Hx From Patient Unobtainable Due To: Altered Mental Status - LEVEL 5 CAVEAT-NON VERBAL Onset/Duration: Still Present - after waking up at 8:00 Timing: Constant, Lasting Hours Character: Lethargy Aggravating Factor(s): Nothing Alleviating Factor(s): Nothing Associated Signs And Symptoms: Negative: Fever - Allergies/Home Medications Allergies/Adverse Reactions: Allergies Allergy/AdvReac Type Severity Reaction Status Date / Time latex Allergy Blisters Verified 02/18/19 20:04 topiramate [From Topamax] Allergy GI Upset Verified 02/18/19 20:04 BANDAIDS Allergy Severe Blisters Uncoded 01/31/19 10:58 PMH/Surg Hx/FS Hx/Imm Hx Previously Healthy: No - LEVEL 5 CAVEAT-NON VERBAL STATUS Endocrine/Hematology History: Reports: Hx Thyroid Disease - HYPO Denies: Hx Diabetes Cardiovascular History: Denies: Hx Hypertension Respiratory History: Reports: Other Respiratory Problems/Disorders - sinusitis Denies: Hx Asthma, Hx Chronic Obstructive Pulmonary Disease (COPD), Hx Pneumonia GI History: Reports: Other GI Disorders - constipation Denies: Hx Ulcer Musculoskeletal History: Reports: Other Musculoskeletal History - Osteoporosis; Hemiparesis of RUE. 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 R knee surgery, R foot surgery. Infectious Disease History: No Infectious Disease History: Denies: Hx Hepatitis, Hx Human Immunodeficiency Virus (HIV), Traveled Outside the US in Last 30 Days - Family History Known Family History: Positive: Unknown - pt with JAIR CHOI, resident of [facility] , no family to provide history Family History: UNKNOWN: as above, and aide also not able to provide family history, and no family history noted in records, pt's book or [facility] records. LEVEL 5 caveat - Social History Alcohol Use: None Hx Substance Use: No Substance Use Type: Reports: None Hx Tobacco Use: No Smoking Status (MU): Never Smoked Tobacco Review of Systems - ROS Summary Review of Systems Summary: LEVEL 5 CAVEAT- NON VERBAL STATUS Negative: Fever Negative: Cough All Other Systems Reviewed And Are Negative: No Physical Exam - Summary Physical Exam Summary: Constitutional: Well-developed, Well-nourished, Alert. (-) Distressed Skin: Warm, Dry HENT: Atraumatic. Old scar on the L parietal scalp. Eyes: Conjunctiva normal Neck: Musculoskeletal ROM normal neck. (-) JVD, (-) Stridor, (-) Nuchal rigidity Cardio: Rhythm regular, rate normal, Heart sounds normal; Intact distal pulses; Radial pulses are 2+ and symmetric. (-) Murmur Pulmonary/Chest wall: Effort normal. (-) Respiratory distress, (-) Wheezes, (-) Rales Abd: Soft, (-) tenderness, (-) Distension, (-) Guarding, (-) Rebound Musculoskeletal: (-) Edema Lymph: (-) Cervical adenopathy Neuro: Alert, at neurological baseline per pts caregiver. Smiling Psych: Happy Triage Information Reviewed: Yes Vital Signs On Initial Exam: Initial Vitals Temp Pulse Resp BP Pulse Ox 97.0 F 63 16 115/83 99 03/29/19 10:06 03/29/19 10:06 03/29/19 10:06 03/29/19 10:06 03/29/19 10:06 Vital Signs Reviewed: Yes - [place] Coma Scale Best Eye Response: 4 - Spontaneous Best Motor Response: 5 - Purposeful Movement Best Verbal Response: 2 - Incomprehensible Words Coma Scale Total: 11 Procedures - Sedation Patient Received Moderate/Deep Sedation with Procedure: No Diagnostics - Vital Signs Vital Signs Temp Pulse Resp BP Pulse Ox 03/29/19 14:32 97.6 F 61 14 107/76 97 03/29/19 11:50 97.3 F 60 14 109/75 96 03/29/19 10:06 97.0 F 63 16 115/83 99 - Laboratory Lab Results: Lab Results 03/29/19 03/29/19 03/29/19 Range/Units 13:04 13:04 13:04 WBC 5.7 (3.5-10.8) 10^3/uL RBC 5.11 (4.18-5.48) 10^6 /uL Hgb 16.1 (14.0-18.0) g/dL Hct 48 (42-52) % MCV 95 H (80-94) fL MCH 32 H (27-31) pg MCHC 33 (31-36) g/dL RDW 13 (10-15) % Plt Count 261 (150-450) 10^3/uL MPV 8.1 (7.4-10.4) fL Neut % (Auto) 50.5 % Lymph % (Auto) 36.6 % [place] % (Auto) 10.0 % Eos % (Auto) 1.6 % Baso % (Auto) 1.3 % Absolute Neuts (auto) 2.9 (1.5-7.7) 10^3/ul Absolute Lymphs (auto) 2.1 (1.0-4.8) 10^3/ul Absolute Monos (auto) 0.6 (0-0.8) 10^3/ul Absolute Eos (auto) 0.1 (0-0.6) 10^3/ul Absolute Basos (auto) 0.1 (0-0.2) 10^3/ul Absolute Nucleated RBC 0.0 10^3/ul Nucleated RBC % 0.1 Sodium 137 (135-145) mmol/L Potassium TNP Chloride 107 (101-111) mmol/L Carbon Dioxide 22 (22-32) mmol/L Anion Gap 8 (2-11) mmol/L BUN 17 (6-24) mg/dL Creatinine 0.62 L (0.67-1.17) mg/dL Est GFR ( Amer) 179.7 (>60) Est GFR (Non-Af Amer) 148.5 (>60) BUN/Creatinine Ratio 27.4 H (8-20) Glucose 96 (70-100) mg/dL Lactic Acid 0.6 (0.5-2.0) mmol/L Calcium 9.6 (8.6-10.3) mg/dL Magnesium 2.1 (1.9-2.7) mg/dL Total Bilirubin 0.40 (0.2-1.0) mg/dL AST TNP ALT 24 (7-52) U/L Alkaline Phosphatase 77 (34-104) U/L Troponin I 0.00 (<0.03) ng/mL C-Reactive Protein 2.67 (<8.01) mg/L Total Protein 7.8 (6.4-8.9) g/dL Albumin 4.4 (3.2-5.2) g/dL Globulin 3.4 (2-4) g/dL Albumin/Globulin Ratio 1.3 (1-3) TSH 0.73 (0.34-5.60) mcIU/mL 03/29/19 Range/Units 14:14 WBC (3.5-10.8) 10^3/uL RBC (4.18-5.48) 10^6 /uL Hgb (14.0-18.0) g/dL Hct (42-52) % MCV (80-94) fL MCH (27-31) pg MCHC (31-36) g/dL RDW (10-15) % Plt Count (150-450) 10^3/uL MPV (7.4-10.4) fL Neut % (Auto) % Lymph % (Auto) % [place] % (Auto) % Eos % (Auto) % Baso % (Auto) % Absolute Neuts (auto) (1.5-7.7) 10^3/ul Absolute Lymphs (auto) (1.0-4.8) 10^3/ul Absolute Monos (auto) (0-0.8) 10^3/ul Absolute Eos (auto) (0-0.6) 10^3/ul Absolute Basos (auto) (0-0.2) 10^3/ul Absolute Nucleated RBC 10^3/ul Nucleated RBC % Sodium (135-145) mmol/L Potassium 4.0 Chloride (101-111) mmol/L Carbon Dioxide (22-32) mmol/L Anion Gap (2-11) mmol/L BUN (6-24) mg/dL Creatinine (0.67-1.17) mg/dL Est GFR ( Amer) (>60) Est GFR (Non-Af Amer) (>60) BUN/Creatinine Ratio (8-20) Glucose (70-100) mg/dL Lactic Acid (0.5-2.0) mmol/L Calcium (8.6-10.3) mg/dL Magnesium (1.9-2.7) mg/dL Total Bilirubin (0.2-1.0) mg/dL AST 14 ALT (7-52) U/L Alkaline Phosphatase (34-104) U/L Troponin I (<0.03) ng/mL C-Reactive Protein (<8.01) mg/L Total Protein (6.4-8.9) g/dL Albumin (3.2-5.2) g/dL Globulin (2-4) g/dL Albumin/Globulin Ratio (1-3) TSH (0.34-5.60) mcIU/mL Result Diagrams: 03/29/19 13:04 03/29/19 14:14 Lab Statement: Any lab studies that have been ordered have been reviewed, and results considered in the medical decision making process. - Radiology CXR Radiology Interpretation Completed By: Radiologist Summary of Radiographic Findings: IMPRESSION: LOW LUNG VOLUMES. NO ACTIVE CARDIOPULMONARY DISEASE. ED physician has reviewed this report. - CT CT Brain CT Interpretation Completed By: Radiologist Summary of CT Findings: IMPRESSION: STABLE LEFT CEREBRAL HEMISPHERIC ENCEPHALOMALACIA. NO ACUTE INTRACRANIAL PATHOLOGY. ED physician has reviewed this report. Re-Evaluation - Re-Evaluation 1st re-eval Re-Evaluation Time: 18:00 Change: Unchanged Comment: CT head unchanged, labs w/o e/o infection. Unable to straight cath pt as he is refusing and moving. Cargiver states he is back to baseline. Suspect he could have had seizure overnight (he has many). Patient was given home seizure medications. Instructions to collect urine sample and f/u outpatient if weakness persists. Pt's current sx resolved. Altered Mental Statu Course/Dx - Course Course Of Treatment: 33 y/o male w hx intellectual disability, seizures p/w fatigue. - no known trauma or infectious symptoms. Caregiver concerned patient may have had seizure overnight as he gets drowsy w seizures. Did not get morning meds so will give him his tegretol and keppra here. Per caregiver he is still slightly sleepy. Will pursue infectious workup w CXR, labs, UA. CT head given unreliable exam and hx. - Diagnoses Provider Diagnoses: Fatigue Discharge ED - Sign-Out/Discharge Documenting (check all that apply): Patient Departure - Discharge Plan Condition: Stable Disposition: HOME Patient Education Materials: Recurrent Seizures in Adults (ED) Referrals: Tatiana Bellamy MD [Primary Care Provider] - Additional Instructions: You were seen in the emergency department for fatigue. His labs did not show any evidence of infection, his head CT did not show any abnormalities We gave him his morning dose of his antiseizure meds. Please have him follow-up with his neurologist. If any studies were not completed at the time of discharge you will be called with the relevant results. Please follow up with your primary care doctor in next 2-3 days and return to emergency department for worsening he, fevers, confusion,or concerning symptoms. It was a pleasure taking care of you today. - Billing Disposition and Condition Condition: STABLE Disposition: Home - Attestation Statements Document Initiated by Dante: Yes Documenting Scribe: Sobia Juárez Provider For Whom Dante is Documenting (Include Credential): Ani Vera MD Scribe Attestation: I, Sobia Juárez , scribed for Ani Vera MD on at 1102. Scribe Documentation Reviewed: Yes Provider Attestation: The documentation as recorded by the Mandeep bridges Kathryn O'Connor accurately reflects the service I personally performed and the decisions made by me, Ani Vera MD Status of Scribe Document: Viewed
[2019-03-29 18:57] VITALS: BP 99/59
== END 2019-03-29 18:55 | disposition home or self-care (01) ==
LOC: ED 10:05
DX: R53.83 Other fatigue (principal); R41.82 Altered mental status, unspecified; G93.89 Other specified disorders of brain; G40.109 Localization-related (focal) (partial) symptomatic epilepsy and epileptic syndromes with simple partial seizures, not intractable, without status epilepticus; F79 Unspecified intellectual disabilities; G80.9 Cerebral palsy, unspecified; Z91.040 Latex allergy status; Z88.8 Allergy status to other drugs, medicaments and biological substances; Z91.048 Other nonmedicinal substance allergy status
CPT/HCPCS: 36415; 70450; 71046; 80053; 83605; 83735; 84443; 84484; 85025; 86140; 99283; A9270-GY

== ENCOUNTER 2019-03-31 12:35 | Emergency (ER) | payer MEDICAID ==
[2019-03-31 13:52] VITALS: BP 149/64
--- NOTE | 2019-03-31 14:13 | ED ---
Complex/Multi-Sys Presentation - HPI Summary HPI Summary: 33-year-old male presents with caregiver today for lethargy. Was seen at the urgent seen in ED 2 days ago for similar complaints. Had a negative workup. Caregiver states has notice some potential thrush in mouth. He had thrush about a month ago. States has not been eating and drinking well. they have been forcing food so he still has been urinating and having normal bowel movements. No cough. No fevers. He normal is active and smiling laughing but has not been doing such. He does have a history of seizure and MR. They have not noticed any seizure-like activities. Has not been missing any of his medications. Level 5 cavet due to patient baseline mental status. - History Of Current Complaint Chief Complaint: UCGeneralIllness Time Seen by Provider: 03/31/19 13:43 - Allergies/Home Medications Allergies/Adverse Reactions: Allergies Allergy/AdvReac Type Severity Reaction Status Date / Time latex Allergy Blisters Verified 03/31/19 13:40 topiramate [From Topamax] Allergy GI Upset Verified 03/31/19 13:40 BANDAIDS Allergy Severe Blisters Uncoded 03/31/19 13:40 PMH/Surg Hx/FS Hx/Imm Hx Endocrine/Hematology History: Reports: Hx Thyroid Disease - HYPO Denies: Hx Diabetes Cardiovascular History: Denies: Hx Hypertension Respiratory History: Reports: Other Respiratory Problems/Disorders - sinusitis Denies: Hx Asthma, Hx Chronic Obstructive Pulmonary Disease (COPD), Hx Pneumonia GI History: Reports: Other GI Disorders - constipation Denies: Hx Ulcer Musculoskeletal History: Reports: Other Musculoskeletal History - Osteoporosis; Hemiparesis of RUE. 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 R knee surgery, R foot surgery. Infectious Disease History: No Infectious Disease History: Denies: Hx Hepatitis, Hx Human Immunodeficiency Virus (HIV), Traveled Outside the [place] in Last 30 Days - Family History Known Family History: Positive: Unknown - pt with MR,CP, [facility] , no family to provide history Family History: UNKNOWN: as above, and aide also not able to provide family history, and no family history noted in records, pt's book or [facility] records. LEVEL 5 caveat - Social History Alcohol Use: None Hx Substance Use: No Substance Use Type: Reports: None Hx Tobacco Use: No Smoking Status (MU): Never Smoked Tobacco Review of Systems Negative: Fever Positive: Other - oral lesions Negative: Cough All Other Systems Reviewed And Are Negative: Yes Physical Exam Triage Information Reviewed: Yes Vital Signs On Initial Exam: Initial Vitals Temp Pulse Resp BP Pulse Ox 97.4 F 82 18 149/64 99 03/31/19 13:40 03/31/19 13:40 03/31/19 13:40 03/31/19 13:40 03/31/19 13:40 Vital Signs Reviewed: Yes Appearance: Positive: Well-Appearing Skin: Positive: Warm, Dry Head/Face: Positive: Normal Head/Face Inspection Eyes: Positive: Normal, EOMI, ALECIA, Conjunctiva Clear ENT: Positive: Pharynx normal, TMs normal, Other - thrush present on mouth, mucous membranes moist Respiratory/Lung Sounds: Positive: Clear to Auscultation, Breath Sounds Present Cardiovascular: Positive: Normal, RRR Abdomen Description: Positive: Nontender, Soft Bowel Sounds: Positive: Present Musculoskeletal: Positive: Normal Neurological: Positive: Normal Psychiatric: Positive: Normal Diagnostics - Vital Signs Vital Signs Temp Pulse Resp BP Pulse Ox 03/31/19 13:40 97.4 F 82 18 149/64 99 - Laboratory Lab Statement: Any lab studies that have been ordered have been reviewed, and results considered in the medical decision making process. Complex Multi-Symp Course/Dx Course Of Treatment: 33-year-old male presents with caregiver today for lethargy. Was seen at the urgent seen in ED 2 days ago for similar complaints. Had a negative workup. Caregiver states has notice some potential thrush in mouth. He had thrush about a month ago. States has not been eating and drinking well. they have been forcing food so he still has been urinating and having normal bowel movements. No cough. No fevers. He normal is active and smiling laughing but has not been doing such. He does have a history of seizure and MR. They have not noticed any seizure-like activities. Has not been missing any of his medications. Level 5 cavet due to patient baseline mental status. On exam has normal exam except for thrush noted. At times he goes smile and appear alert but then becomes lethargic again. Discussed will try treating for thrush but told if there is no improvement will need to go to the ER. caregiver states that they have a hard time getting him to swallow diflucain so also requesting nystatin as can brush it in his mouth. gave referral to GI as keeps having recurrent thrush. Patient's caregiver understands and agrees with plan. - Diagnoses Provider Diagnoses: Oral candidiasis Discharge ED - Sign-Out/Discharge Documenting (check all that apply): Patient Departure All imaging exams completed and their final reports reviewed: No Studies - Discharge Plan Condition: Good Disposition: HOME Prescriptions: Fluconazole 100 MG TAB* [Diflucan 100 MG TAB*] 100 mg PO DAILY #8 tab Nystatin SUSPENSION ORAL SYR* 400,000 units PO [place]ID [place] [facility] [place] Education Materials: Oral Candidiasis (ED) Referrals: Tatiana Bellamy MD [Primary Care Provider] - Fei Powell MD [Medical Doctor] - Additional Instructions: attempt to give fluconazole two tablets first day, one table for 6 more days use nystatin in addition 4ml four times a day for 7 days especially in unable to give fluconazole follow up with primary within 5 days follow up with GI Return to ED if develop fever, worsening lethargy, or any new or worsening symptoms - Billing Disposition and Condition Condition: GOOD Disposition: Home
== END 2019-03-31 14:18 | disposition home or self-care (01) ==
LOC: UCEAST 12:35
DX: B37.0 Candidal stomatitis (principal); M81.0 Age-related osteoporosis without current pathological fracture; G80.9 Cerebral palsy, unspecified; F79 Unspecified intellectual disabilities; Z91.040 Latex allergy status; Z88.8 Allergy status to other drugs, medicaments and biological substances; Z91.09 Other allergy status, other than to drugs and biological substances
CPT/HCPCS: 99212; G0463

== ENCOUNTER 2019-04-21 19:53 | Emergency (ER) | payer MEDICAID ==
--- NOTE | 2019-04-21 20:08 | ED ---
Neurological HPI - HPI Summary HPI Summary: This pt is a 33 Y/O M presenting to [facility] from [facility] for a possible Sz that began at 1630 today. 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 Per [facility] the pt had a focal seizure in his R arm. Per EMS the pt was given 3 tabs of 1mg clonazepam, and was sent her for monitoring per his facility 's protocol. He is a level 5 caveat due to his baseline mental status. - History of Current Complaint Chief Complaint: EDSeizure Stated Complaint: SEIZURE PER EMS Time Seen by Provider: 04/21/19 19:58 Last Known Well Date: 04/21/19 Prior to 163 Hx Obtained From: EMS Hx From Patient Unobtainable Due To: Other - Baseline mental status due to TBI Onset/Duration: Sudden Onset, Resolved Timing: Sudden Onset Current Severity: None Number of Seizures: 1 - Focal Sz to R arm Pain Intensity: 0 - Additional Pertinent History Primary Care Physician: ISHAN - Allergy/Home Medications Allergies/Adverse Reactions: Allergies Allergy/AdvReac Type Severity Reaction Status Date / Time latex Allergy Blisters Verified 03/31/19 13:40 topiramate [From Topamax] Allergy GI Upset Verified 03/31/19 13:40 BANDAIDS Allergy Severe Blisters Uncoded 03/31/19 13:40 PMH/Surg Hx/FS Hx/Imm Hx Previously Healthy: No - A full PE is unable to be obtained due to the pt's baseline mental status Endocrine/Hematology History: Reports: Hx Thyroid Disease - HYPO Denies: Hx Diabetes Cardiovascular History: Denies: Hx Hypertension Respiratory History: Reports: Other Respiratory Problems/Disorders - sinusitis Denies: Hx Asthma, Hx Chronic Obstructive Pulmonary Disease (COPD), Hx Pneumonia GI History: Reports: Other GI Disorders - constipation Denies: Hx Ulcer Musculoskeletal History: Reports: Other Musculoskeletal History - Osteoporosis; Hemiparesis of RUE. 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 R knee surgery, R foot surgery. - Immunization History Immunizations Up to Date: Yes Infectious Disease History: No Infectious Disease History: Denies: Hx Hepatitis, Hx Human Immunodeficiency Virus (HIV), Traveled Outside the [place] in Last 30 Days - Family History Known Family History: Positive: Unknown - pt with JAIR CHOI, [facility] of [facility] , no family to provide history Family History: UNKNOWN: as above, and aide also not able to provide family history, and no family history noted in records, pt's book or [facility] records. LEVEL 5 caveat - Social History Occupation: Disabled Lives: At [facility] Alcohol Use: None Hx Substance Use: No Substance Use Type: Reports: None Hx Tobacco Use: No Smoking Status (MU): Never Smoked Tobacco Review of Systems - ROS Summary Review of Systems Summary: A FULL ROS IS UNABLE TO BE OBTAINED DUE TO THE PT'S BASELINE MENTAL STATUS. Neurological: Other - possible Sz while at halfway All Other Systems Reviewed And Are Negative: No Physical Exam - Summary Physical Exam Summary: Appearance: Well-appearing, Well-nourished, lying in bed comfortably, nonverbal , no apparent seizure activity. He is playing with his ball with EMS states is typical. Spastic contractures of the R arm and wrist at the elbow, no tonic clonic activity. Skin: Warm, dry, no obvious rash Eyes: sclera anicteric, no conjunctival pallor ENT: mucous membranes moist, pharynx appears normal Neck: Supple, nontender Respiratory: Clear to auscultation, no signs of respiratory distress Cardiovascular: Normal S1, S2. No murmurs. Normal distal pulses in tibial and radial bilaterally. Abdomen: Soft, nontender, normal active bowel sounds present Musculoskeletal: Normal, Strength/ROM Intact Neurological: A&Ox3, awake and alert, mentation is normal, speech is fluent and appropriate Psychiatric: affect is normal, does not appear anxious or depressed Triage Information Reviewed: Yes Vital Signs On Initial Exam: Initial Vitals Temp Pulse Resp BP Pulse Ox 97.8 F 115 16 121/67 94 04/21/19 19:57 04/21/19 19:57 04/21/19 19:57 04/21/19 19:57 04/21/19 19:57 Vital Signs Reviewed: Yes Completion Of Physical Exam Limited Due To: Level 5 - Due to baseline mental status Procedures - Sedation Patient Received Moderate/Deep Sedation with Procedure: No Diagnostics - Vital Signs Vital Signs Temp Pulse Resp BP Pulse Ox 04/21/19 19:57 97.8 F 115 16 121/67 94 - Laboratory Result Diagrams: 04/21/19 20:17 04/21/19 20:17 Lab Statement: Any lab studies that have been ordered have been reviewed, and results considered in the medical decision making process. Re-Evaluation - Re-Evaluation First Eval Re-Evaluation Time: 20:10 Change: Improved Comment: Per aid that works at [facility], the pt requires their full protocal due to the possible Sz. She states that the pt is currently at his baseline. Course/Dx - Course Course Of Treatment: This pt is a 33 Y/O M presenting to [facility] from [facility] for a possible Sz that began at 1630 today. 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 Per [facility] the pt had a focal seizure in his R arm. His PE shows that he is nonverbal, no apparent seizure activity. He is playing with his ball which EMS and social worker palliative care states is typical. Spastic contractures of the R arm and wrist at the elbow, no tonic clonic activity. Per aid that works at [facility], the pt requires their full protocal due to the prolonged seizure requiring 3 doses of benzos. She states that the pt is currently at his baseline. He has no abnormalities during his ED course. He will be discharged home with a Dx of seizure. - Diagnoses Provider Diagnoses: Seizure - Physician Notifications Discussed Care Of Patient With: Kristal Zavala Time Discussed With Above Provider: 20:26 Instructed by Provider To: Other - Dr. Zavala, neurology, stated that he wanted the pt to be monitored in case of follow up Szs. Discharge ED - Sign-Out/Discharge Documenting (check all that apply): Patient Departure - discharge - Discharge Plan Condition: Good Disposition: HOME Patient Education Materials: Epilepsy (ED) Referrals: Tatiana Bellamy MD [Primary Care Provider] - Additional Instructions: PLEASE FOLLOW UP WITH YOUR PRIMARY CARE PROVIDER IN 1-3 DAYS AND RETURN TO THE EMERGENCY DEPARTMENT FOR ANY NEW OR WORSENING SYMPTOMS. - Billing Disposition and Condition Condition: GOOD Disposition: Home - Attestation Statements Document Initiated by Scribe: Yes Documenting Scribe: Prosper Hernandez Provider For Whom Scribe is Documenting (Include Credential): Raul Montero MD Scribe Attestation: IProsper, scribed for Raul Montero MD on 04/22/19 at 1841. Scribe Documentation Reviewed: Yes Provider Attestation: The documentation as recorded by the scribeProsper accurately reflects the service I personally performed and the decisions made by me, Raul Montero MD Status of Scribe Document: Viewed
[2019-04-21 20:30] LABS: INR 1.03 (0.82-1.09)
[2019-04-21 20:31] LABS: ABS Basophils 0.1 10^3/ul (0-0.2); ABS Eosinophils 0.1 10^3/ul (0-0.6); ABS Lymphocytes 2.3 10^3/ul (1.0-4.8); ABS Monocytes 0.8 10^3/ul (0-0.8); ABS Neutrophils 5.1 10^3/ul (1.5-7.7); Eosinophil % 0.8 %; Hematocrit 46 % (42-52); Lymphocyte % 27.1 %; Mean Corpuscular HGB Conc 35 g/dL (31-36); Mean Corpuscular Hemoglobin 32 pg (27-31); Mean Corpuscular Volume 93 fL (80-94); Mean Platelet Volume 8.3 fL (7.4-10.4); Platelet Count 257 10^3/uL (150-450); Red Blood Count 4.94 10^6 /uL (4.18-5.48); Red Cell Distribution Width 13 % (10-15); White Blood Count 8.3 10^3/uL (3.5-10.8)
[2019-04-21 20:42] LABS: Potassium 3.9 mmol/L (3.5-5.0)
[2019-04-21 20:49] LABS: Albumin 4.6 g/dL (3.2-5.2)
[2019-04-21 20:51] LABS: Calcium 9.9 mg/dL (8.6-10.3); Total Bilirubin 0.2 mg/dL (0.2-1.0)
[2019-04-21 20:56] LABS: Albumin/Globulin Ratio 1.4 (1-3); BUN/Creatinine Ratio 32.1 (8-20); EGFR African American 202.1 (>60); Globulin 3.4 g/dL (2-4)
[2019-04-21 23:29] LABS: Urine Appearance Cloudy; Urine Bilirubin Negative (Negative); Urine Blood 3+ (Negative); Urine Color Yellow; Urine Glucose Negative (Negative); Urine Ketones Negative (Negative); Urine Nitrite Negative (Negative); Urine Protein Negative (Negative); Urine Specific Gravity 1.025 (1.010-1.030); Urine Urobilinogen Negative (Negative)
[2019-04-21 23:31] LABS: Urine Bacteria Absent (Absent); Urine Red Blood Cell 3+(>10/hpf) (Absent); Urine White Blood Cell Trace(0-5/hpf) (Absent)
[2019-04-21 23:44] VITALS: BP 108/88
[2019-04-25 08:12] LABS: Zonisamide 11 mcg/mL (10-40)
== END 2019-04-21 23:40 | disposition home or self-care (01) ==
LOC: ED 19:53
DX: R56.9 Unspecified convulsions (principal); E03.9 Hypothyroidism, unspecified; G80.9 Cerebral palsy, unspecified; F79 Unspecified intellectual disabilities; Z88.8 Allergy status to other drugs, medicaments and biological substances; Z91.040 Latex allergy status
CPT/HCPCS: 36415; 80053; 80177; 80183; 80203; 81003; 81015; 83605; 83735; 85025; 85610; 87086; 99282

== ENCOUNTER 2019-04-25 08:56 | Emergency (ER) | payer MEDICAID ==
[2019-04-25 09:51] VITALS: BP 00/00
--- NOTE | 2019-04-25 10:21 | UC ---
Ear Complaint HPI - HPI Summary HPI Summary: 33 yo male presents accompanied by [facility] staff member. Pt is non verbal, thus the history is provided by the police detention attendant with him today. They tell me that pt has been hitting himself in the head more often than usual - he usually does this when he is in discomfort. They noticed that when they try to look in his ears, he gets more upset when manipulating the right ear and has behavior outbursts. No fevers. Real Estate Processor states pt was on keflex a week or two ago for an ear infection with similar symptoms - improved for a few days but has returned. - History of Current Complaint Chief Complaint: UCEar Stated Complaint: HEADACHE Time Seen by Provider: 04/25/19 10:21 Hx Obtained From: Family/Real Estate Processor Hx From Patient Unobtainable Due To: Altered Mental Status Onset/Duration: Sudden Onset Severity Initially: Moderate Severity Currently: Moderate Pain Intensity: 6 Pain Scale Used: 0-10 Numeric - Allergies/Home Medications Allergies/Adverse Reactions: Allergies Allergy/AdvReac Type Severity Reaction Status Date / Time latex Allergy Blisters Verified 04/25/19 09:51 topiramate [From Topamax] Allergy GI Upset Verified 04/25/19 09:51 BANDAIDS Allergy Severe Blisters Uncoded 04/25/19 09:51 Home Medications: Home Medications Acyclovir* [Zovirax 400 MG TAB*] 400 mg PO TID PRN 04/25/19 [History Confirmed 04/25/19] Amoxicillin/Clavulanate TAB* [Augmentin TAB 875*] 875 mg PO BID 04/25/19 [ History Confirmed 04/25/19] PMH/Surg Hx/FS Hx/Imm Hx - Additional Past Medical History Additional PMH: Seizures MR - Surgical History Surgical History: Yes Surgery Procedure, Year, and Place: HEAD, FEET, 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 R knee surgery, R foot surgery. - Family History Known Family History: Positive: Unknown - pt with MR,CP, resident of [facility] , no family to provide history Family History: UNKNOWN: as above, and aide also not able to provide family history, and no family history noted in records, pt's book or [facility] records. LEVEL 5 caveat - Social History Lives: [facility] Alcohol Use: None Substance Use Type: None Smoking Status (MU): Never Smoked Tobacco Review of Systems All Other Systems Reviewed And Are Negative: No Constitutional: Positive: Negative Skin: Positive: Negative Eyes: Positive: Negative ENT: Positive: Ear Ache Respiratory: Positive: Negative Cardiovascular: Positive: Negative Gastrointestinal: Positive: Negative Neurological: Positive: Negative Psychological: Positive: Negative Physical Exam - Summary Physical Exam Summary: GENERAL: NAD. SKIN: No rashes, sores, lesions, or open wounds. HEENT: Head: AT/NC Eyes: EOM intact. Conjunctiva clear without inflammation or discharge. Ears: Hearing grossly normal. TMs intact, no bulging, erythema, or edema. LEFT EAR canal with mild edema and erythema. White discharge. Nose: Nasal mucosa pink and moist. Throat: Posterior oropharynx without exudates, erythema, or tonsillar enlargement. Uvula midline. NECK: Supple. No lymphadenopathy. NEURO: Alert. Triage Information Reviewed: Yes Vital Signs: Initial Vital Signs Temp 97.1 F 04/25/19 09:47 Pulse 91 04/25/19 09:47 Resp 22 04/25/19 09:47 BP 00/00 04/25/19 09:47 Pulse Ox 99 04/25/19 09:47 Vital Signs Reviewed: Yes Ear Complaint Course/Dx - Course Course Of Treatment: Left otitis externa - Differential Dx/Diagnosis Provider Diagnosis: Otitis externa Discharge ED - Sign-Out/Discharge Documenting (check all that apply): Patient Departure All imaging exams completed and their final reports reviewed: No Studies - Discharge Plan Condition: Stable Disposition: HOME Prescriptions: Ciproflox/Dexameth OTIC.SUSP* [Ciprodex OTIC.SUSP*] 5 drop RIGHT EAR BID 5 Days #1 btl Ofloxacin 0.3% (Ear Drop)* [Floxin 0.3% OTIC.ANABELLA (Ear Drop)] 5 drop RIGHT EAR BID 7 Days #1 btl Patient Education Materials: Otitis Externa (ED) Referrals: Tatiana Bellamy MD [Primary Care Provider] - - Billing Disposition and Condition Condition: STABLE Disposition: Home
== END 2019-04-25 10:30 | disposition home or self-care (01) ==
LOC: UCEAST 08:56
DX: H60.92 Unspecified otitis externa, left ear (principal); R41.82 Altered mental status, unspecified; Z91.040 Latex allergy status; Z88.8 Allergy status to other drugs, medicaments and biological substances; Z91.09 Other allergy status, other than to drugs and biological substances
CPT/HCPCS: 99212; G0463

== ENCOUNTER 2019-06-11 09:56 | Emergency (ER) | payer MEDICAID ==
--- OUTSIDE RECORDS SUMMARY | 2019-06-11 10:05 | XMS REPORT | Continuity of Care Document ---
:1985 External Reference #:[id number] Author Name Ashkan Panda NP (transmitted by agent of provider Shania Ding) Address [address], [place] [address] Problems Active Problems Provider Date Localization-related epilepsy [...] Patient has never smoked Smoking Status Reviewed: 05/03/19 Patient has never smoked Allergies, Adverse Reactions, [...] 5 mins x2 if needed if rr>10bpm code c Zonisamide 4 tablets twice a 240caps G40.219 Armand Mason 02/08/2015 100mg day Branden Rodgers Capsules Ibuprofen 200 2 tab every 4 hours Unknown 200mg as needed for pain Tablets Milk Of Magnesia 30 milliliters by Unknown mouth every day as 400mg/5ML Suspension needed Enema As directed Unknown 7-19GM/118ML Enema Colace 1 tab by mouth 2-3 Unknown 100mg Capsules times a day as needed Vitamin D3 1 chew by mouth 30units Armand Mason 1000Unit once a day Branden Rodgers Chewtabs Debrox 1-2 drops in Unknown 6.5% Solution affacted ear the night before shower, rince out Peridex 15 milliliters Unknown 0.12% swish and spit Solution twice a day Robitussin 5-10mL po 4 q4h prn Unknown Mucus+Chest Congestion 100mg/5ML Liquid Acyclovir take 1 tablet by Unknown 400mg [...] 238gm Unknown 3350NF Powder water/juice bid Trileptal 4 tabs by mouth 240tabs Armand Mason 300mg twice a day Branden Rodgers Tablets Oyster Shell qd Unknown 500mg Tablets Levothyroxine Sodium 1 by mouth every 30tabs Unknown day 88mcg Tablets Immunizations Description No Information Available Vital Signs Date Vital Result Comment 05/03/2019 12:57pm Height 62 inches 5'2" Wheelchair. Weight 157.31 lb Heart Rate 80 /min BP Systolic Sitting 116 mmHg BP Diastolic Sitting 64 mmHg Respiratory Rate 18 /min BMI (Body Mass Index) 28.8 kg/m2 03/08/2019 11:17am Height 62 inches 5'2" Wheelchair. Weight 153.31 lb Heart Rate 80 /min BP Systolic 114 mmHg BP Diastolic 68 mmHg BMI (Body Mass Index) 28.0 kg/m2 Results Test Acquired Facility Test Result H/L Range Note Date Laboratory 03/30/2019 [facility] Levetiracetam 58.1 1, 2 test finding [address] (Keppra) g/[place] [address] [phone] CBC Auto Diff 03/30/2019 [facility] White Blood Count 6.0 Normal 3.5-10.[address] 10^3/uL [place], [place] [id number] [phone] Red Blood Count 5.15 10^6/uL Normal 4.18-5.48 Hemoglobin 16.6 g/dL Normal 14.0-18.0 Hematocrit 50 % Normal 42-52 Mean Corpuscular Volume 97 fL High 80-94 Mean Corpuscular Hemoglobin 32 pg High 27-31 Mean Corpuscular HGB Conc 33 g/dL Normal 31-36 Red Cell Distribution Width 14 % Normal 10-15 Platelet Count 275 10^3/uL Normal 150-450 Mean Platelet Volume 8.8 fL Normal 7.4-10.4 Abs Neutrophils 3.0 10^3/uL Normal 1.5-7.7 Abs Lymphocytes 2.1 10^3/uL Normal 1.0-4.8 Abs Monocytes 0.8 10^3/uL Normal 0-0.8 Abs Eosinophils 0.2 10^3/uL Normal 0-0.6 Abs Basophils 0.1 10^3/uL Normal 0-0.2 Abs Nucleated RBC 0.0 10^3/uL Granulocyte % 49.4 % Lymphocyte % 34.5 % Monocyte % 12.5 % Eosinophil % 2.7 % Basophil % 0.9 % Nucleated Red Blood Cells % 0.1 Comp Metabolic 03/30/2019 [facility] Sodium 138 mmol/L Normal 135-[address] [place] [address] [phone] Potassium 4.4 mmol/L Normal 3.5-5.0 Chloride 104 mmol/L Normal 101-111 Co2 Carbon Dioxide 26 mmol/L Normal 22-32 Anion Gap 8 mmol/L Normal 2-11 Glucose 87 mg/dL Normal 70-100 Blood Urea Nitrogen 17 mg/dL Normal 6-24 Creatinine 0.78 mg/dL Normal 0.67-1.17 BUN/Creatinine Ratio 21.8 High 8-20 Calcium 10.0 mg/dL Normal 8.6-10.3 Total Protein 7.5 g/dL Normal 6.4-8.9 Albumin 4.7 g/dL Normal 3.2-5.2 Globulin 2.8 g/dL Normal 2-4 Albumin/Globulin Ratio 1.7 Normal 1-3 Total Bilirubin 0.40 mg/dL Normal 0.2-1.0 Alkaline Phosphatase 83 U/L Normal 34-104 Alt 24 U/L Normal 7-52 Ast 14 U/L Normal 13-39 Egfr Non- 113.9 >60 Egfr 137.9 >60 3 Laboratory test 02/23/2019 [facility] Levetiracetam 38.4 g/mL 4, 5 finding [address] [facility] ([facility] [place] [address] [phone] Trileptal (Oxcarbazepine) 25 g/mL 3 - 35 6 Zonisamide 13 g/mL 10-40 7 Laboratory test 01/12/2019 [facility] Levetiracetam 22.8 g/mL 8, 9 finding [address] [facility] ([facility] [place] [address] [phone] Trileptal (Oxcarbazepine) 26 g/mL 3 - 35 10 Zonisamide 15 g/mL 10-40 11 CBC Auto 01/12/2019 [facility] White Blood 5.5 10^3/uL Normal 3.5-10.[address] [place] [address] [phone] Red Blood Count 5.02 10^6/uL Normal 4.18-5.48 [...] Blood Cells % 0.0 Comp Metabolic 01/12/2019 [facility] Sodium 140 mmol/L Normal 135-[address] [place] [id number] [phone] Potassium 4.3 mmol/L Normal 3.5-5.0 Chloride 106 [...] Egfr Non- 148.5 >60 Egfr 179.7 >60 12 1 [id number] 2 REFERENCE VALUE 12.0 - 46.0 ADDITIONAL INFORMATION This test was developed and its performance characteristics determined by [facility] in a manner consistent with CLIA requirements. This test has not been cleared or approved by the U.S. Food and Drug Administration. Test Performed by: [facility] [address] [place] [address] Importer Or Exporter: Tez Farley M.D. Ph.D.; CLIA# [id number] 3 Because ethnic data is not always readily [...] 15-29 5 Kidney failure <15 (or dialysis) 4 Please obtain in 1-2 months after Quinn mir.[id number] 5 REFERENCE VALUE 12.0 - 46.0 ADDITIONAL INFORMATION This test was developed and its performance characteristics determined by [facility] in a manner consistent with CLIA requirements. This test has not been cleared or approved by the U.S. Food and Drug Administration. Test Performed by: [facility] [place] [address] Importer Or Exporter: Tez Farley M.D. Ph.D.; CLIA# [id number] 6 ADDITIONAL INFORMATION This test was developed and its performance characteristics determined by [facility] in a manner consistent with CLIA requirements. This test has not been cleared or approved by the U.S. Food and Drug Administration. Test Performed by: [facility] [place] [address] Importer Or Exporter: Tez Farley M.D. Ph.D.; CLIA# [id number] 7 ADDITIONAL INFORMATION This test was developed and its performance characteristics determined by [facility] in a manner consistent with CLIA requirements. This test has not been cleared or approved by the U.S. Food and Drug Administration. Test Performed by: [facility] [place] [address] Importer Or Exporter: Tez Farley M.D. Ph.D.; CLIA# [id number] REFERENCE VALUE 12.0 - 46.0 ADDITIONAL INFORMATION This test was developed and its performance characteristics determined by [facility] in a manner consistent with CLIA requirements. This test has not been cleared or approved by the U.S. Food and Drug Administration. Test Performed by: [facility] [place] [address] Importer Or Exporter: Tez Farley M.D. Ph.D.; CLIA# [id number] 10 ADDITIONAL INFORMATION This test was developed and its performance characteristics determined by [facility] in a manner consistent with CLIA requirements. This test has not been cleared or approved by the U.S. Food and Drug Administration. Test Performed by: [facility] [place] [address] Importer Or Exporter: Tez Farley M.D. Ph.D.; CLIA# [id number] 11 ADDITIONAL INFORMATION This test was developed and its performance characteristics determined by [facility] in a manner consistent with CLIA requirements. This test has not been cleared or approved by the U.S. Food and Drug Administration. Test Performed by: [facility] [place] [address] Importer Or Exporter: Tez Farley M.D. 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 at [facility] AT Mqdjzqyo95/13/2020 9:30 am - Ashkan Panda NP at [facility]05/03/2019 - Ashkan Panda NPG40.219 Localization- related (focal) (partial) symptomatic epilepsy and epileptic syndromes with complex partial seizures, intractable, without status epilepticusFollow up:3 MONTHS Functional Status Description No Information Available Mental Status Description No Information Available Referrals Description No Information Available
--- OUTSIDE RECORDS SUMMARY | 2019-06-11 10:05 | XMS REPORT | Continuity of Care Document ---
:1985 External Reference #:[id number] Author Name Cory Felton M.D. (transmitted by agent of provider Galdino Garcia) Address [address] [place] [id number] Problems Active Problems Provider Date Localization-related epilepsy [...] Patient has never smoked Smoking Status Reviewed: 05/09/19 Patient has never smoked Allergies, Adverse Reactions, [...] Available Vital Signs Date Vital Result Comment 05/09/2019 9:26am Height 62 inches 5'2" Wheelchair. Weight 157.00 lb Respiratory Rate 16 /min Body Temperature 98.4 F Pain Level 0 BMI (Body Mass Index) 28.7 kg/m2 05/03/2019 12:57pm Height 62 inches 5'2" Wheelchair. Weight 157.31 lb Heart Rate 80 /min BP Systolic Sitting 116 mmHg BP Diastolic Sitting 64 mmHg Respiratory Rate 18 /min BMI (Body Mass Index) 28.8 kg/m2 Results Test Acquired Facility Test Result H/L Range Note Date Laboratory 03/30/2019 [facility] Levetiracetam 58.1 1, 2 test finding [address] (Keppra) g/[place] [address] [phone] CBC Auto Diff 03/30/2019 [facility] White Blood Count 6.0 Normal 3.5-10.[address] 10^3/uL [place], [place] [id number] [phone] Red Blood Count 5.15 10^6/uL Normal 4.18-5.48 [...] Blood Cells % 0.1 Comp Metabolic 03/30/2019 [facility] Sodium 138 mmol/L Normal 135-[address] [place] [address] [phone] Potassium 4.4 mmol/L Normal 3.5-5.0 Chloride 104 [...] Egfr 137.9 >60 3 Laboratory test 02/23/2019 [facility] Levetiracetam 38.4 g/mL 4, 5 finding [address] [facility] ([facility] [place] [address] [phone] Trileptal (Oxcarbazepine) 25 g/mL 3 - 35 6 Zonisamide 13 g/mL 10-40 7 Laboratory test 01/12/2019 [facility] Levetiracetam 22.8 g/mL 8, [address] ([facility]) [place] [address] [phone] Trileptal (Oxcarbazepine) 26 g/mL 3 - 35 10 Zonisamide 15 g/mL 10-40 11 CBC Auto 01/12/2019 [facility] White Blood 5.5 10^3/uL Normal 3.5-10.8 Diff [address] [place] [address] [phone] Red Blood Count 5.02 10^6/uL Normal 4.18-5.48 [...] Blood Cells % 0.0 Comp Metabolic 01/12/2019 [facility] Sodium 140 mmol/L Normal 135-[address] [place] [address] [phone] Potassium 4.3 mmol/L Normal 3.5-5.0 Chloride 106 [...] 148.5 >60 Egfr 179.7 >60 12 1 [id number] 2 REFERENCE VALUE 12.0 - 46.0 ADDITIONAL INFORMATION This test was developed and its performance characteristics determined by [facility] in a manner consistent with CLIA requirements. This test has not been cleared or approved by the U.S. Food and Drug Administration. Test Performed by: [facility] [address] [place] [address] Director Ehs: Tez Farley M.D. Ph.D.; CLIA# [id number] 3 Because ethnic data is not always [...] 4 Please obtain in 1-2 months after Ketessie mir.[id number] 5 REFERENCE VALUE 12.0 - 46.0 ADDITIONAL INFORMATION This test was developed and its performance characteristics determined by [facility] in a manner consistent with CLIA requirements. This test has not been cleared or approved by the U.S. Food and Drug Administration. Test Performed by: [facility] [address] Director Ehs: Tez Farley M.D. Ph.D.; CLIA# [id number] 6 ADDITIONAL INFORMATION This test was developed and its performance characteristics determined by [facility] in a manner consistent with CLIA requirements. This test has not been cleared or approved by the U.S. Food and Drug Administration. Test Performed by: [facility] [place] [address] Director Ehs: Tez Farley M.D. Ph.D.; CLIA# [id number] 7 ADDITIONAL INFORMATION This test was developed and its performance characteristics determined by [facility] in a manner consistent with CLIA requirements. This test has not been cleared or approved by the U.S. Food and Drug Administration. Test Performed by: [facility] [place] [address] Director Ehs: Tez Fraley M.D. Ph.D.; CLIA# [id number] 9 REFERENCE VALUE 12.0 - 46.0 ADDITIONAL INFORMATION This test was developed and its performance characteristics determined by [facility] in a manner consistent with CLIA requirements. This test has not been cleared or approved by the U.S. Food and Drug Administration. Test Performed by: [facility] [place] [address] Director Ehs: Tez Farley M.D. Ph.D.; CLIA# [id number] 10 ADDITIONAL INFORMATION This test was developed and its performance characteristics determined by [facility] in a manner consistent with CLIA requirements. This test has not been cleared or approved by the U.S. Food and Drug Administration. Test Performed by: [facility] [place] [address] Director Ehs: Tez Farley M.D. Ph.D.; CLIA# [id number] 11 ADDITIONAL INFORMATION This test was developed and its performance characteristics determined by [facility] in a manner consistent with CLIA requirements. This test has not been cleared or approved by the U.S. Food and Drug Administration. Test Performed by: [facility] [place] [address] Director Ehs: Tez Farley M.D. Ph.D.; CLIA# [id number] 12 Because ethnic data is not always [...] Date Location Provider Dx Diagnosis Office Visit 05/03/2019 [facility] Ashkan Panda NP G40.219 Local- rel symptc 1:00p [facility] epi w cmplx part seiz, ntrct, w/o stat epi Office Visit 03/08/2019 [facility] Ashkan Panda NP G40.219 Local- rel symptc 11:00a [facility] epi w cmplx part seiz, ntrct, w/o stat epi F72 Severe intellectual disabilities Z87.820 Personal history of traumatic brain injury Z79.899 Other terminal superintendent (current) drug therapy Assessments Date Code Description Provider 05/03/2019 G40.219 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, intractable, without status epilepticus 03/08/2019 G40.219 Localization-related (focal) (partial) symptomatic Ashkan Panda NP epilepsy 03/08/2019 F72 Severe intellectual disabilities Ashkan Panda NP 03/08/2019 Z87.820 Personal history of traumatic brain injury Ashkan Panda NP 03/08/2019 Z79.899 Other terminal superintendent (current) drug therapy Ashkan Panda NP Plan of Treatment Future Appointment(s):07/31/2019 9:00 am - Ashkan Panda NP at [facility]09/06/2019 9:30 am - Ashkan Panda NP at [facility] Functional Status Description No Information Available Mental Status Description No Information Available Referrals Description No Information Available
[2019-06-11 10:38] VITALS: BP 122/84
--- NOTE | 2019-06-11 11:50 | UC ---
UC General HPI - HPI Summary HPI Summary: c/o white spots on tongue and mouth, staff noticed today less interested in eating today, thinks d/t pain staff noted L eye a little red upon awakening this am, now noting R eye redness too. No other rash. No cough No change in mentation. Hx thrush - History of Current Complaint Chief Complaint: UCGeneralIllness Stated Complaint: SORE COATED MOUTH Hx Obtained From: Family/Manager Flight Pain Intensity: 3 - Allergy/Home Medications Allergies/Adverse Reactions: Allergies Allergy/AdvReac Type Severity Reaction Status Date / Time latex Allergy Blisters Verified 06/11/19 10:38 topiramate [From Topamax] Allergy GI Upset Verified 06/11/19 10:38 BANDAIDS Allergy Severe Blisters Uncoded 06/11/19 10:38 PMH/Surg Hx/FS Hx/Imm Hx Previously Healthy: Yes - Surgical History Surgical History: Yes Surgery Procedure, Year, and Place: HEAD, FEET, 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 R knee surgery, R foot surgery. - Family History Known Family History: Positive: Unknown - pt with MR,CP, resident of long-term , no family to provide history Family History: UNKNOWN: as above, and aide also not able to provide family history, and no family history noted in records, pt's book or [facility] records. LEVEL 5 caveat - Social History Alcohol Use: None Substance Use Type: None Smoking Status (MU): Never Smoked Tobacco Review of Systems All Other Systems Reviewed And Are Negative: Yes Constitutional: Positive: Negative Skin: Positive: Negative Eyes: Positive: Other - see hpi ENT: Positive: Other - see hpi Respiratory: Positive: Negative Cardiovascular: Positive: Negative Gastrointestinal: Positive: Other - not interested in eating this am. Negative : Vomiting, Diarrhea Genitourinary: Positive: Other Motor: Positive: Other - no changes Neurovascular: Positive: Other Musculoskeletal: Positive: Other: Neurological/Mental Status: Positive: Other Psychological: Positive: Negative Is Patient Immunocompromised?: No - Comments Additional Review of Systems Comments: 1st person ros not possible d/t neurocognitive d/o, 2nd person ros as possible as noted above per staff in attendance Physical Exam Triage Information Reviewed: Yes Appearance: Well-Appearing - nad, nontoxic general appearance, Well-Nourished Vital Signs: Initial Vital Signs Temp 98.5 F 06/11/19 10:33 Pulse 74 06/11/19 10:33 Resp 16 06/11/19 10:33 BP 122/84 06/11/19 10:33 Pulse Ox 99 06/11/19 10:33 Vital Signs Reviewed: Yes Eye Exam: Other - L eye mild red, watery. R eye a little watery Eyes: Positive: Conjunctiva Clear ENT: Positive: Nasal drainage, TM dull - TM dull, carroll, RTxd R, Other - Tongue with white plaque, c/w oral candiasis Neck exam: Normal, Other - airway patent Neck: Positive: Supple, Nontender Respiratory Exam: Normal Respiratory: Positive: Lungs clear, Normal breath sounds, No respiratory distress, No accessory muscle use Cardiovascular Exam: Normal Cardiovascular: Positive: Brisk Capillary Refill Abdominal Exam: Normal Abdomen Description: Positive: Nontender Musculoskeletal Exam: Other - Neurocognitive d/o -> exam difficult. In wheelchair. Per aide, he does not have much baseline movement of R side Moves L arm well. Neurological Exam: Other - nad per aide smiles, seems engaged, interacting with environment Psychological Exam: Other - nad see above Skin Exam: Normal - nondiaphoretic Course/Dx - Course Course Of Treatment: Reviewed coa / tx plan with aide, also see avs. Questions as posed answered to the best of my ability. Suspect early sinusitis as well. will start nystatin first thought. - Diagnoses Provider Diagnosis: Serous otitis media, Thrush, Sinusitis Discharge ED - Sign-Out/Discharge Documenting (check all that apply): Patient Departure All imaging exams completed and their final reports reviewed: No Studies - Discharge Plan Condition: Stable Disposition: HOME Prescriptions: Amoxicillin PO (*) [Amoxicillin 400 MG/5 ML SUSP*] 800 mg PO BID 7 Days #2 bottle Nystatin SUSPENSION ORAL SYR* 500,000 units PO QID 10 Days #1 bottle Patient Education Materials: Sinusitis (ED), Oral Candidiasis (ED), Serous Otitis Media (ED) Referrals: Tatiana Bellamy MD [Primary Care Provider] - Additional Instructions: Please schedule follow up with your primary care physician, in 1-2 weeks for recheck. Start nystatin today, start amoxicillin tomorrow. Hydrate. Encourage yogurt at least once daily with meals, if possible. Please seek medical attention for worse or new problems. - Billing Disposition and Condition Condition: STABLE Disposition: Home
== END 2019-06-11 12:30 | disposition home or self-care (01) ==
LOC: UCEAST 09:56
DX: B37.9 Candidiasis, unspecified (principal); H65.91 Unspecified nonsuppurative otitis media, right ear; J32.9 Chronic sinusitis, unspecified
CPT/HCPCS: 99212; G0463

== ENCOUNTER 2019-06-16 12:01 | Emergency (ER) | payer MEDICAID ==
--- OUTSIDE RECORDS SUMMARY | 2019-06-16 12:36 | XMS REPORT | Continuity of Care Document ---
:1985 External Reference #:[id number] Author Name Fei Powell MD (transmitted by agent of provider Julia Sommers) Address [address] [place] [address] Problems Active Problems Provider Date Localization-related epilepsy [...] Use Start: Unknown Patient has never smoked Recreational Drug Use Never Used Drugs Smoking Status Reviewed: 06/16/19 Patient has never smoked Allergies, Adverse Reactions, Alerts Active Allergies Reaction Severity Comments Date Plastic Tape Blisters 07/12/2013 Topamax GI UPSET, WEIGHT LOSS 07/12/2013 Medications Active Medications SIG Qnty Indications Ordering Date Provider Levetiracetam Take 5 Tablets By 300tabs Armand Mason 06/05/2019 500mg Mouth 2 Times A Day Branden Rodgers Tablets (DO Not Crush) Clonazepam take 1 sublingual 10tabs Armand Mason [...] tsp po prn Unknown Chewtabs between meals Temazepam 2 caps 2 hrs before Unknown [...] mouth every 30tabs Unknown day 88mcg Tablets History Medications Keppra Take 5 tablets by 300tabs Aramnd Rodgers, 03/08/2019 - 500mg mouth twice a day M.D. 06/05/2019 Tablets Immunizations Description No Information Available Vital Signs Date Vital Result Comment 06/16/2019 9:06am Height 62 inches 5'2" Wheelchair. Weight 157.31 lb RN Stated Heart Rate 90 /min BP Systolic 106 mmHg BP Diastolic 70 mmHg Respiratory Rate 18 /min O2 % BldC Oximetry 98 % BMI (Body Mass Index) 28.8 kg/m2 05/09/2019 9:26am Height 62 inches 5'2" Wheelchair. Weight 157.00 lb Respiratory Rate 16 /min Body Temperature 98.4 F Pain Level 0 BMI (Body Mass Index) 28.7 kg/m2 Results Test Acquired Facility Test Result H/L Range Note Date Laboratory 05/18/2019 [facility] Levetiracetam 47.4 Abnormal 1, 2 test finding [address] (Keppra) g/[place] [address] [phone] Zonisamide 15 g/mL 10-40 3 Trileptal (Oxcarbazepine) 33 g/mL 3 - 35 4 CBC Auto 05/18/2019 [facility] White Blood 6.4 10^3/uL Normal 3.5-10.[address] [place] [address] [phone] Red Blood Count 4.83 10^6/uL Normal 4.18-5.48 Hemoglobin 15.5 g/dL Normal 14.0-18.0 Hematocrit 46 % Normal 42-52 Mean Corpuscular Volume 95 fL High 80-94 Mean Corpuscular Hemoglobin 32 pg High 27-31 Mean Corpuscular HGB Conc 34 g/dL Normal 31-36 Red Cell Distribution Width 13 % Normal 10-15 Platelet Count 287 10^3/uL Normal 150-450 Mean Platelet Volume 8.5 fL Normal 7.4-10.4 Abs Neutrophils 3.5 10^3/uL Normal 1.5-7.7 Abs Lymphocytes 2.1 10^3/uL Normal 1.0-4.8 Abs Monocytes 0.7 10^3/uL Normal 0-0.8 Abs Eosinophils 0.1 10^3/uL Normal 0-0.6 Abs Basophils 0.1 10^3/uL Normal 0-0.2 Abs Nucleated RBC 0.0 10^3/uL Granulocyte % 55.0 % Lymphocyte % 32.3 % Monocyte % 10.2 % Eosinophil % 1.6 % Basophil % 0.9 % Nucleated Red Blood Cells % 0.0 Comp Metabolic 05/18/2019 [facility] Sodium 141 mmol/L Normal 135-[address] [place] [address] [phone] Potassium 4.6 mmol/L Normal 3.5-5.0 Chloride 106 mmol/L Normal 101-111 Co2 Carbon Dioxide 27 mmol/L Normal 22-32 Anion Gap 8 mmol/L Normal 2-11 Glucose 92 mg/dL Normal 70-100 Blood Urea Nitrogen 14 mg/dL Normal 6-24 Creatinine 0.64 mg/dL Low 0.67-1.17 BUN/Creatinine Ratio 21.9 High 8-20 Calcium 9.6 mg/dL Normal 8.6-10.3 Total Protein 7.5 g/dL Normal 6.4-8.9 Albumin 4.5 g/dL Normal 3.2-5.2 Globulin 3.0 g/dL Normal 2-4 Albumin/Globulin Ratio 1.5 Normal 1-3 Total Bilirubin 0.40 mg/dL Normal 0.2-1.0 Alkaline Phosphatase 85 U/L Normal 34-104 Alt 40 U/L Normal 7-52 Ast 18 U/L Normal 13-39 Egfr Non- 143.2 >60 Egfr 173.2 >60 5 Laboratory 03/30/2019 [facility] Levetiracetam 58.1 6, [address] (Keppra) g/[place] [address] [phone] CBC Auto Diff 03/30/2019 [facility] White Blood Count 6.0 Normal 3.[address] 10^3/uL -10 [place] [address] .8 [phone] Red Blood Count 5.15 10^6/uL Normal 4.18-5.48 [...] Blood Cells % 0.1 Comp Metabolic 03/30/2019 [facility] Sodium 138 mmol/L Normal 135-[address] [place] [address] [phone] Potassium 4.4 mmol/L Normal 3.5-5.0 Chloride 104 [...] Egfr Non- 113.9 >60 Egfr 137.9 >60 8 Laboratory test 02/23/2019 [facility] Levetiracetam 38.4 g/mL 9, [address] (Keppra) [place] [address] [phone] Trileptal (Oxcarbazepine) 25 g/mL 3 - 35 11 Zonisamide 13 g/mL 10-40 12 Laboratory test 01/12/2019 [facility] Levetiracetam 22.8 g/mL 13, [address] ([facility]) [place] [address] [phone] Trileptal (Oxcarbazepine) 26 g/mL 3 - 35 15 Zonisamide 15 g/mL 10-40 16 CBC Auto 01/12/2019 [facility] White Blood 5.5 10^3/uL Normal 3.5-10.[address] [place] [address] [phone] Red Blood Count 5.02 10^6/uL Normal 4.18-5.48 [...] Blood Cells % 0.0 Comp Metabolic 01/12/2019 [facility] Sodium 140 mmol/L Normal 135-[address] [place] [address] [phone] Potassium 4.3 mmol/L Normal 3.5-5.0 Chloride 106 [...] Egfr Non- 148.5 >60 Egfr 179.7 >60 17 1 [id number] 2 REFERENCE VALUE 12.0 - 46.0 ADDITIONAL INFORMATION This test was developed and its performance characteristics determined by [facility] in a manner consistent with CLIA requirements. This test has not been cleared or approved by the U.S. Food and Drug Administration. Test Performed by: [facility] [place] [address] Block Trader: Tez Farley M.D. Ph.D.; CLIA# [id number] 3 ADDITIONAL INFORMATION This test was developed and its performance characteristics determined by [facility] in a manner consistent with CLIA requirements. This test has not been cleared or approved by the U.S. Food and Drug Administration. Test Performed by: [facility] [place] [address] Block Trader: Tez Farley M.D. Ph.D.; CLIA# [id number] 4 ADDITIONAL INFORMATION This test was developed and its performance characteristics determined by [facility] in a manner consistent with CLIA requirements. This test has not been cleared or approved by the U.S. Food and Drug Administration. Test Performed by: [facility] [place] [address] Block Trader: Tez Farley M.D. Ph.D.; CLIA# [id number] 5 Because ethnic data is not always readily [...] 15-29 5 Kidney failure <15 (or dialysis) 6 [id number] 7 REFERENCE VALUE 12.0 - 46.0 ADDITIONAL INFORMATION This test was developed and its performance characteristics determined by [facility] in a manner consistent with CLIA requirements. This test has not been cleared or approved by the U.S. Food and Drug Administration. Test Performed by: [facility] [place] [address] Block Trader: Tez Farley M.D. Ph.D.; CLIA# [id number] 8 Because ethnic data is not always readily [...] 15-29 5 Kidney failure <15 (or dialysis) 9 Please obtain in 1-2 months after Keppra level.[id number] 10 REFERENCE VALUE 12.0 - 46.0 ADDITIONAL INFORMATION This test was developed and its performance characteristics determined by [facility] in a manner consistent with CLIA requirements. This test has not been cleared or approved by the U.S. Food and Drug Administration. Test Performed by: [facility] - [address] [address] Block Trader: Tez Farley M.D. Ph.D.; CLIA# [id number] 11 ADDITIONAL INFORMATION This test was developed and its performance characteristics determined by [facility] in a manner consistent with CLIA requirements. This test has not been cleared or approved by the U.S. Food and Drug Administration. Test Performed by: [facility] [place] [address] Block Trader: Tez Farley M.D. Ph.D.; CLIA# [id number] 12 ADDITIONAL INFORMATION This test was developed and its performance characteristics determined by [facility] in a manner consistent with CLIA requirements. This test has not been cleared or approved by the U.S. Food and Drug Administration. Test Performed by: [facility] [place] [address] Block Trader: Tez Farley M.D. Ph.D.; CLIA# [id number] 13 [id number] 14 REFERENCE VALUE 12.0 - 46.0 ADDITIONAL INFORMATION This test was developed and its performance characteristics determined by [facility] in a manner consistent with CLIA requirements. This test has not been cleared or approved by the U.S. Food and Drug Administration. Test Performed by: [facility] [place] [address] Block Trader: Tez Farley M.D. Ph.D.; CLIA# [id number] 15 ADDITIONAL INFORMATION This test was developed and its performance characteristics determined by [facility] in a manner consistent with CLIA requirements. This test has not been cleared or approved by the U.S. Food and Drug Administration. Test Performed by: [facility] [place] [address] Block Trader: Tez Farley M.D. Ph.D.; CLIA# [id number] 16 ADDITIONAL INFORMATION This test was developed and its performance characteristics determined by [facility] in a manner consistent with CLIA requirements. This test has not been cleared or approved by the U.S. Food and Drug Administration. Test Performed by: [facility] [address] [place] [address] Block Trader: Tez Farley M.D. 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 tube, bilateral 05/09/2019 K12.30 Oral mucositis (ulcerative), unspecified [facility] Felton M.D. 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, intractable, without status epilepticus 03/08/2019 G40.219 Localization-related (focal) (partial) Ashkan Panda NP symptomatic epilepsy 03/08/2019 F72 Severe intellectual disabilities Ashkan Panda NP 03/08/2019 Z87.820 Personal history of traumatic brain Ashkan Panda NP injury 03/08/2019 Z79.899 Other director long term care (current) drug therapy Ashkan Panda NP Plan of Treatment Future Appointment(s):07/31/2019 9:00 am - Ashkan Panda NP at [facility]09/06/2019 9:30 am - Ashkan Panda NP at [facility] Functional Status Description No Information Available Mental Status Description No Information Available Referrals Description No Information Available
--- NOTE | 2019-06-16 13:01 | ED ---
GI/ HPI - HPI Summary HPI Summary: The patient is a 33 y/o M presenting to [facility] accompanied by assistant elementary teacher with a chief complaint of constipation for six days. Per assistant elementary teacher, the patient has a bowel regimen for GI issues, including suppositories and enemas (last yesterday) , which have not helped. He visited Dr. Dang office today, and he recommended digital unimpaction at home, and if the patient does not have a successful BM, then he is to come into the ED. There was no relief of the constipation at home, and he has only been excreting small amounts of liquid. The assistant elementary teacher denies any fevers, vomiting, or indication of pain. She states that his appetite was slightly decreased yesterday but has been normal today. He is currently on Nystatin for thrush and also Amoxicillin. No history of SBO, no abdominal surgery. PMHx: seizures, cerebral palsy, hemiparesis of RUE, hypothyroidism, osteoporosis, head surgery. Nonsmoker, no EtOH, no substance use. Medications reviewed. Allergies noted. Level 5 Caveat secondary to patient being nonverbal with cerebral palsy. History obtained from assistant elementary teacher and medical records. - History of Current Complaint Chief Complaint: EDConstipation Time Seen by Provider: 06/16/19 12:46 Stated Complaint: CONSTIPATION PER CAREGIVER Hx Obtained From: Family/[employer], Medical Records Onset/Duration: Started Days Ago - six, Still Present Timing: Lasting Days Current Severity: Moderate Pain Intensity: 0 Associated Signs and Symptoms: Positive: Constipation, Change in Appetite - yesterday but nml appetite today. Negative: Vomiting, Fever Alleviating Factor(s): Nothing - enemas to no relief - Additional Pertinent History Primary Care Physician: ISHAN - Allergy/Home Medications Allergies/Adverse Reactions: Allergies Allergy/AdvReac Type Severity Reaction Status Date / Time latex Allergy Blisters Verified 06/11/19 10:38 topiramate [From Topamax] Allergy GI Upset Verified 06/11/19 10:38 BANDAIDS Allergy Severe Blisters Uncoded 06/11/19 10:38 Home Medications: Home Medications Acetaminophen TAB* [Tylenol TAB*] 650 mg PO Q4H PRN MDD 12 tabs 10/21/17 [ History Confirmed 06/16/19] Al Hydrox/Mg Hydrox/Simet LIQ* [Maalox Plus*] 10 ml PO TID PRN 10/21/17 [ History Confirmed 06/16/19] Bacitracin OINT* 1 applic TOPICAL BID PRN 10/21/17 [History Confirmed 06/16/19] Bisacodyl 10 mg SUPP [Dulcolax Supp*] 10 mg [place] DAILY PRN 10/21/17 [History Confirmed 06/16/19] Calcium Carbonate/Vitamin D3 [Oyster Shell Calcium Tablet] 1 each PO QAM [History Confirmed 06/16/19] Chlorhexidine MOUTHWASH 0.12%* [Peridex Mouth Wash 0.12%*] 2 teasp SWISH SPIT BID 10/21/17 [History Confirmed 06/16/19] Clonazepam ODT (NF) 1 mg PO ONCE MDD 3 tabs 10/21/17 [History Confirmed 06/16/19 ] Docusate CAP* [Colace Cap*] 100 mg PO BID 10/21/17 [History Confirmed 06/16/19] L.acidoph,Paracasei, B.lactis [Probiotic] 1 each PO DAILY 10/21/17 [History Confirmed 06/16/19] Magnesium Hydroxide LIQ* [Milk of Magnesia LIQ*] 30 ml PO DAILY PRN 10/21/17 [ History Confirmed 06/16/19] OXcarbazepine TAB(*) [Trileptal 300 mg TAB(*)] 1,200 mg PO BID 10/21/17 [ History Confirmed 06/16/19] Polyethylene Glycol 3350* [Miralax (17 GM DOSE CYNTHIA)] 17 gm PO TID 10/21/17 [ History Confirmed 06/16/19] Sodium Phosphate ADULT ENEMA* [Fleet Enema*] 1 enema NJ DAILY PRN 10/21/17 [ History Confirmed 06/16/19] Temazepam CAP* [Restoril CAP*] 30 mg PO DAILY PRN 10/21/17 [History Confirmed ] Vitamins A & D OINT* [Vitamin A & D Oint*] 1 applic TOPICAL BID PRN 10/21/17 [ History Confirmed 06/16/19] Zonisamide(NF) [Zonegran(NF)] 400 mg PO BID 10/21/17 [History Confirmed 06/16/19 ] Levothyroxine Sodium 88 mcg PO DAILY 02/27/18 [History Confirmed 06/16/19] levETIRAcetam TAB* [Keppra TAB*] 2,500 mg PO BID 08/03/18 [History Confirmed ] Amoxicillin PO (*) [Amoxicillin 400 MG/5 ML SUSP*] 10 ml PO BID 06/16/19 [ History Confirmed 06/16/19] Carbamide Peroxide [Ear Wax Drops] 2 drop BOTH EARS MONTHLY 06/16/19 [History Confirmed 06/16/19] Cholecalciferol CAP/TAB(NF) [Vitamin D3 CAP/TAB (NF)] 1,000 unit PO DAILY [History Confirmed 06/16/19] Ibuprofen TAB* [Advil TAB*] 400 mg PO Q4H PRN 06/16/19 [History Confirmed ] Nystatin SUSPENSION ORAL SYR* 5 ml PO QID 06/16/19 [History Confirmed 06/16/19] Zinc Oxide [Desitin] 13 % TOPICAL TID PRN 06/16/19 [History Confirmed 06/16/19] guaiFENesin 100 mg/5 ml LIQ [Robitussin 100 mg/5ml LIQ] 10 ml PO Q4H PRN [History Confirmed 06/16/19] PMH/Surg Hx/FS Hx/Imm Hx Endocrine/Hematology History: Reports: Hx Thyroid Disease - HYPO Denies: Hx Diabetes Cardiovascular History: Denies: Hx Hypertension Respiratory History: Reports: Other Respiratory Problems/Disorders - sinusitis Denies: Hx Asthma, Hx Chronic Obstructive Pulmonary Disease (COPD), Hx Pneumonia GI History: Reports: Other GI Disorders - constipation Denies: Hx Ulcer Musculoskeletal History: Reports: Other Musculoskeletal History - Osteoporosis; Hemiparesis of RUE. 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 R knee surgery, R foot surgery. Infectious Disease History: No Infectious Disease History: Denies: Hx Hepatitis, Hx Human Immunodeficiency Virus (HIV), Traveled Outside the [place] in Last 30 Days - Family History Known Family History: Positive: Unknown - pt with MR,CP, resident [place] [facility] , no family to provide history Family History: UNKNOWN: as above, and aide also not able to provide family history, and no family history noted in records, pt's book or [facility] records. LEVEL 5 caveat - Social History Alcohol Use: None Hx Substance Use: No Substance Use Type: Reports: None Hx Tobacco Use: No Smoking Status (MU): Never Smoked Tobacco Review of Systems Negative: Fever Positive: Other - constipation, decreased appetite yesterday but nml intake today. Negative: Abdominal Pain, Vomiting All Other Systems Reviewed And Are Negative: No - Comments Additional Review of Systems Comments: Level 5 Caveat secondary to patient being nonverbal with cerebral palsy. Physical Exam - Summary Physical Exam Summary: Constitutional: Well-developed, Well-nourished, Alert. Witnessed 40-second seizure by assistant elementary teacher. (-) Distressed Skin: Warm, Dry HENT: Normocephalic; Atraumatic Eyes: Conjunctiva normal Neck: Musculoskeletal ROM normal neck. (-) JVD, (-) Stridor, (-) Tracheal deviation Cardio: Rhythm regular, rate normal, Heart sounds normal; Intact distal pulses; The pedal pulses are 2+ and symmetric. Radial pulses are 2+ and symmetric. (-) Murmur Pulmonary/Chest wall: Effort normal. (-) Respiratory distress, (-) Wheezes, (-) Rales Abd: Soft, no apparent tenderness, (+) Slight distension, (-) Guarding, (-) Rebound Musculoskeletal: (-) Edema Lymph: (-) Cervical adenopathy Neuro: Alert, Baseline (history of cerebral palsy) Psych: Mood and affect Normal Triage Information Reviewed: Yes Vital Signs On Initial Exam: Initial Vitals Temp Pulse Resp BP Pulse Ox 97.8 F 72 15 106/81 97 06/16/19 12:04 06/16/19 12:04 06/16/19 12:04 06/16/19 12:04 06/16/19 12:04 Vital Signs Reviewed: Yes Procedures - Sedation Patient Received Moderate/Deep Sedation with Procedure: No Diagnostics - Vital Signs Vital Signs Temp Pulse Resp BP Pulse Ox 06/16/19 12:04 97.8 F 72 15 106/81 97 - Laboratory Lab Statement: Any lab studies that have been ordered have been reviewed, and results considered in the medical decision making process. - Radiology Abd XR Radiology Interpretation Completed By: Radiologist Summary of Radiographic Findings: Impression: Nonspecific bowel gas pattern. Large amount of stool throughout the colon. This imaging report was reviewed by Dr. Sam. Re-Evaluation - Re-Evaluation First Eval Re-Evaluation Time: 14:30 Comment: Discussed results and plan for d/c GIGU Course/Dx - Course Course Of Treatment: 33 y/o M who has history of constipation with bowel regimen presenting with constipation for 6 days. Multiple suppositories and fleet enemas to no relief. No indication of pain, fevers, or vomiting. GI visit today with Dr. Powell who recommend r/o for SBO as digital unimpaction was unsuccessful at home. PMHx: seizures, cerebral palsy, hemiparesis of RUE, hypothyroidism. Physical reveals slight distension of the abdomen which is soft without apparent tenderness on palpation, neuro is baseline for history of cerebral palsy, 40-second seizure activity per assistant elementary teacher. Abdominal XR impression reveals large amount of stool throughout colon. All results discussed. Patient is safe for discharge with PCP follow up. He may continue his prescribed bowel reigmen. Patient's assistant elementary teacher agreeable with plan. - Diagnoses Provider Diagnoses: Constipation Discharge ED - Sign-Out/Discharge Documenting (check all that apply): Patient Departure - Patient will be discharged home. - Discharge Plan Condition: Stable Disposition: HOME Patient Education Materials: Constipation (DC) Referrals: Tatiana Bellamy MD [Primary Care Provider] - 3 Days Additional Instructions: Ector may continue his bowel regimen as prescribed. Follow up with your primary care provider in 1-2 days. Return to the emergency department for any new or worsening symptoms. - Billing Disposition and Condition Condition: STABLE Disposition: Home - Attestation Statements Document Initiated by Dante: Yes Documenting Scribe: Rosa Maria Waters Provider For Whom Dante is Documenting (Include Credential): DO Ezequiel Rubinibdebbie Attestation: Rosa Maria Moore scribed for Dr. Tavares Sam DO on 06/16/19 at 1513. Scribe Documentation Reviewed: Yes Provider Attestation: The documentation as recorded by the Rosa Maria bridges accurately reflects the service I personally performed and the decisions made by me, Dr. Tavares Sam, DO Status of Scribe Document: Viewed
[2019-06-16 14:46] VITALS: BP 121/89
== END 2019-06-16 14:51 | disposition home or self-care (01) ==
LOC: ED 12:01
DX: K59.00 Constipation, unspecified (principal); E03.9 Hypothyroidism, unspecified; Z79.890 Hormone replacement therapy; Z79.899 Other long term (current) drug therapy; Z88.8 Allergy status to other drugs, medicaments and biological substances; Z91.040 Latex allergy status
CPT/HCPCS: 74019; 99282